=== PATIENT | male | born 1960 | race African-American/Black ===

== ENCOUNTER 2023-12-19 12:44 | Emergency (ER) | payer SELFPAY ==
[2023-12-19 12:45] VITALS: BP 199/101; PULSE 106; RESP 22; TEMP 37.7; O2SAT 97; BMI 29.0
--- NOTE | 2023-12-19 12:53 | RAD_ITS ---
INDICATION: cough EXAMINATION/TECHNIQUE: X-RAY - XR Chest 2 Views COMPARISON: No relevant prior comparison study available FINDINGS: LINES/DEVICES: None. LUNGS: No consolidation, edema or effusion. No pneumothorax. MEDIASTINUM AND CARDIOVASCULAR STRUCTURES: Cardiac silhouette not enlarged. Tortuosity of the thoracic aorta. Central airways and mediastinal contour are unremarkable. BONES AND SOFT TISSUES: Unremarkable. RAD/Chest PA and Lateral IMPRESSION: No radiographic evidence of acute cardiopulmonary disease. Electronically Signed: Timothy Bridges MD at 13:36 EST ,
--- NOTE | 2023-12-19 12:58 | EX.ED.DYSGE1 ---
HPI <GERI Rosales - Last Filed: 12/19/23 14:42> History of Present Illness Chief Complaint: Fever Narrative Narrative: Patient is a 63-year-old male with no significant history who is from [facility] who presents to the emergency department for 2 days of generalized malaise, cough, body aches, headache fever and chills. Patient states last evening, he was shaking, he had to take Tylenol, today, he has a cough, generalized body aches and is here for evaluation. He denies any nausea or vomiting. Denies any sick contacts. Patient states he is coughing with no sputum production. PFSH <GERI Rosales - Last Filed: 12/19/23 14:42> [facility], [facility] Medical History no medical history Allergy/AdvReac Type Severity Reaction Status Date / Time No Known Allergies Allergy Verified 12/19/23 12:45 Social History Smoking Status: Never smoker ROS <GERI Rosales - Last Filed: 12/19/23 14:42> ROS ED ROS Narrative Constitutional: Negative for weight loss, weakness. Positive for fever and chills Eyes: Negative for vision loss, vision change, double vision ENT: Negative for any sore throat, ear pain, congestion Cardiovascular: Negative for any chest pain, tightness, palpitations Respiratory: Negative for any sputum production, hemoptysis, dyspnea, dyspnea on exertion, orthopnea. Positive for cough Gastrointestinal: Negative for any abdominal pain, nausea, vomiting, diarrhea, constipation, blood in stool, blood in vomit : Negative for any urinary frequency, dysuria, retention, blood in urine Muscle skeletal: Negative for any neck pain, back pain. Positive for generalized bodyaches Neurological: Negative for any headache, syncope, dizziness Skin: Negative for any rashes, itching, abrasions, lacerations Psychiatric: Negative for any depression, anxiety, stress, suicidal ideation, homicidal ideation Hematologic: Negative for any excessive bruising, easy bleeding EXAM <GERI Rosales - Last Filed: 12/19/23 14:42> Physical Exam Narrative Exam Narrative: Vital signs reviewed. Low-grade fever, slightly tachycardic HEET: Head normocephalic atraumatic, TMs clear bilaterally. Posterior pharynx is clear, moist mucous membranes. Nares clear bilaterally. Neck: Supple with no lymphadenopathy or tenderness. No signs of meningismus. Cardiac: Regular rate and rhythm no murmurs gallops or rubs, equal peripheral pulses bilaterally. Respiratory: Lungs clear to auscultation bilaterally. No chest tenderness. Abdomen: Soft, nontender, nondistended. No abdominal bruit or pulsatile masses. No hepatosplenomegaly Extremities: No peripheral edema, no signs of gross trauma or deformity. Active full range of motion of all extremities. Neuro: Cranial nerves II through XII intact, no focal neurological deficits. Skin: Clean dry and intact with no rash, purpura, petechiae, vesicles or pustules. Backs/flank: No CVA tenderness, no midline spinal tenderness, no deformity. Psych: Normal mood and affect. No SI, HI or acute psychosis. Const Vital Signs: 12/19/23 12:45 12/19/23 13:41 12/19/23 13:44 Temperature 99.9 F H 101.4 F H Temperature Source Temporal Oral Pulse Rate 106 H 112 H Respiratory Rate 22 H 16 Respiratory Effort Normal Respiratory Pattern Normal Blood Pressure 199/101 H 175/108 H Blood Pressure Mean 133 130 Pulse Ox 97 95 Oxygen Delivery Method Room Air Room Air 12/19/23 14:36 12/19/23 14:45 Temperature 100 F H 99.5 F H Temperature Source Oral Pulse Rate 98 Respiratory Rate 16 Respiratory Effort Respiratory Pattern Blood Pressure 160/98 H Blood Pressure Mean 118 Pulse Ox 95 Oxygen Delivery Method <Dr. Gurinder Mcdonnell MD - Last Filed: 12/19/23 14:50> Physical Exam Const Vital Signs: 12/19/23 12:45 12/19/23 13:41 12/19/23 13:44 Temperature 99.9 F H 101.4 F H Temperature Source Temporal Oral Pulse Rate 106 H 112 H Respiratory Rate 22 H 16 Respiratory Effort Normal Respiratory Pattern Normal Blood Pressure 199/101 H 175/108 H Blood Pressure Mean 133 130 Pulse Ox 97 95 Oxygen Delivery Method Room Air Room Air 12/19/23 14:36 12/19/23 14:45 Temperature 100 F H 99.5 F H Temperature Source Oral Pulse Rate 98 Respiratory Rate 16 Respiratory Effort Respiratory Pattern Blood Pressure 160/98 H Blood Pressure Mean 118 Pulse Ox 95 Oxygen Delivery Method MDM <GERI Rosales - Last Filed: 12/19/23 14:42> MDM Radiography Diagnostic Testing: Clinical Impression(s) from Imaging Studies Chest X-Ray 12/19/23 12:53 IMPRESSION: No radiographic evidence of acute cardiopulmonary disease. Electronically Signed: Timothy Bridges MD at 13:36 EST , Treatment and Re-Evaluation :: Differential diagnosis includes however is not limited to: COVID-19, RSV, influenza, community-acquired pneumonia, other viral illness. Gastroenteritis. Patient appears to be in no obvious distress. Presenting to the emergency department with complaints of viral-like symptoms such as fever, headache, body aches and cough. Patient will receive a rapid COVID/influenza/RSV test, urinalysis, as well as two-view chest x-ray. Patient be given Tylenol for his headache as well as body aches. Patient will be reevaluated Patient's chest x-ray inter by the ER physician shows no radiographic evidence of any acute cardiopulmonary process. Patient's rapid COVID/influenza/RSV was positive for influenza A. This does coincide with all the patient's symptom such as cough, fever and chills. I do believe the patient was not taking ibuprofen and Tylenol correctly, the fever became higher and he felt more uncomfortable. Patient given instructions regarding proper hydration, patient to continue to take ibuprofen, Tylenol. He was given strict return precautions. Patient is happy with the plan of care, all questions were answered, patient stable for discharge. <Dr. Gurinder Mcdonnell MD - Last Filed: 12/19/23 14:50> MDM Radiography Diagnostic Testing: Clinical Impression(s) from Imaging Studies Chest X-Ray 12/19/23 12:53 IMPRESSION: No radiographic evidence of acute cardiopulmonary disease. Electronically Signed: Timothy Bridges MD at 13:36 EST , Treatment and Re-Evaluation Comments:: I have personally performed a face to face assessment of the patient and have reviewed the DIANA Note. I performed a substantive portion of the visit including all aspects of the following. My rehman findings include: History is 1-2 days of cough, sore throat, fatigue, body aches, headaches, fevers. No dyspnea. Exam is well-appearing in no distress. Lungs clear to auscultation throughout. No tachycardia on my exam. No cervical lymphadenopathy. No potato voice or stridor. No rashes. Medical Decison Making: Viral syndrome likely here. Chest x-ray 2 views my interpretation is normal with no signs of pneumonia. We did a viral swab and is positive for influenza A. This explains his symptoms and we do not think he needs any acute treatment or Tamiflu. He does not meet CDC recommendations/criteria for Tamiflu, and he is stable with no hypoxemia, discharged with supportive care instructions. Other additions or changes: [None] Discharge Plan Triage Chief Complaint: Fever ED Midlevel Provider: Romeo Duarte ED Provider: Gurinder Mcdonnell Dx/Rx/DC Orders Clinical Impression: Influenza A, Viral illness Instructions: ED Influenza (Adult) Primary Care Provider: Care Physician,No Primary Referrals: Care Physician,No Primary [Primary Care Provider] - Activity Restrictions/Additional Instructions: Please take Tylenol 1000 mg every 6-8 hours, you may take ibuprofen 600 mg every 8 hours. You must maintain hydration. Ensure that you eat and drink normally. Follow-up with your primary care provider. Disposition Disposition: Home, Self Care
[2023-12-19] MEDS: Acetaminophen 500 MG Tablet 1000 MG PO (13:07)
[2023-12-19 13:44] VITALS: BP 175/108; PULSE 112; RESP 16; TEMP 38.6; O2SAT 95
[2023-12-19 14:16] LABS: Bacteria 0 SEEN /hpf (None Seen); Mucous, Urine 0 SEEN /hpf (<or=2+); Red Blood Cells-Urine 0 SEEN /hpf (0-5); Squamous Epithelial Cells - UA 0 SEEN /hpf (0-5); White Blood Cells 0 SEEN /hpf (0-5)
[2023-12-19 14:30] LABS: Color, Urine Yellow (Yellow); Glucose, Dipstick Normal (Normal); Ketone-Dipstick Negative (Negative); Leukocyte Esterase-Dipstick Negative /ul (Negative); Nitrite-Dipstick Negative (Negative); Occult Blood-Urine Negative /ul (Negative); Protein-Dipstick 15 mg/dl (Negative); Urine Bilirubin Dipstick Negative (Negative); Urine Clarity Clear (Clear); Urine Urobilinogen 1 mg/dl (Normal)
[2023-12-19 14:36] VITALS: TEMP 37.7
[2023-12-19 14:45] VITALS: BP 160/98; PULSE 98; RESP 16; TEMP 38.3; O2SAT 95
[2023-12-19] MEDS: Ibuprofen 600 MG Tablet PO (14:50)
== END 2023-12-19 14:56 | disposition home or self-care (01) ==
PROVIDERS: Nurse Practitioner; Emergency Provider Emergency Medicine; Visit Provider Emergency Medicine
DX: J10.1 Influenza due to other identified influenza virus with other respiratory manifestations (principal); B34.9 Viral infection, unspecified
CPT/HCPCS: 71046; 81001; 87631; 99283

== ENCOUNTER 2024-10-31 19:07 | Inpatient (IN) | payer SELFPAY ==
[2024-10-31 19:09] VITALS: BP 195/131; PULSE 107; RESP 18; TEMP 36.1; O2SAT 99; BMI 24.7
--- NOTE | 2024-10-31 19:32 | EX.ED.DYSGE1 ---
HPI History of Present Illness Chief Complaint: Weakness PFSH PFSH Home Medications ?Medication ?Instructions ?Recorded ?Last Taken ?Type NK 10/31/24 Unknown History Allergy/AdvReac Type Severity Reaction Status Date / Time No Known Allergies Allergy Verified 10/31/24 19:09 Social History Smoking Status: Never smoker EXAM Physical Exam Const Vital Signs: 10/31/24 19:09 10/31/24 21:07 10/31/24 22:05 Temperature 97 F L Temperature Source Temporal Pulse Rate 107 H 78 Respiratory Rate 18 16 Blood Pressure 195/131 H 181/103 H 154/110 H Blood Pressure Mean 152 129 124 Pulse Ox 99 98 10/31/24 22:28 Temperature 97.8 F Temperature Source Pulse Rate 104 H Respiratory Rate 20 H Blood Pressure 184/118 H Blood Pressure Mean 140 Pulse Ox 98 MDM MDM MDM Narrative Medical decision making narrative: HISTORY OF PRESENT ILLNESS: Language 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 He notes for one week he has been having pain in the epigastrium, throat. Notes he takes ibuprofen daily for aches and pains. He notes that he is not eating or drinking no severe burning pain from his throat down to his abdomen. He notes history of abdominal hernia which she had surgery remotely. Denies any other surgical history. States only medicine he takes daily is ibuprofen. Patient denies sudden onset of pain, no tearing sensation, no migratory symptoms, no new numbness, weakness or loss of sensation. Patient denies family history or personal history of Connective tissue disorders (Marfan's Syndrome, Zi Danlos etc). Patient denies sudden onset of pain, no tearing sensation, no migratory symptoms, no new numbness, weakness or loss of sensation. Patient denies family history or personal history of Connective tissue disorders (Marfan's Syndrome, Zi Danlos etc). REVIEW OF SYSTEMS: Pertinent positives: Chest pain, leg weakness Pertinent negatives: Syncope PHYSICAL EXAM: Nursing triage notes reviewed, Vital signs reviewed Constitutional: please see mdm HENT: MMM Eyes: Pupils equal round and reactive to light, Extraocular muscles intact Neck: No stridor, no JVD, full neck ROM Lungs: Clear to auscultation, No wheezing or rales. No increased work of breathing, no conversational dyspnea, no accessory muscle use, no nasal flaring. No respiratory distress noted Heart: Regular rate and rhythm, No murmurs, No rubs and No gallops, 2+ distal pulses (radial, femoral, posterior tibial) in all extremities Abdomen: Soft, there is no tenderness, rigidity, rebound or guarding, no obvious peritoneal signs, no palpable pulsatile abdominal masses, no auscultated abdominal bruit : No CVAT Extremities: No edema Neuro: No new focal neurological deficits, cranial nerves II through XII intact, 5/5 strength in all present extremities. Intact sensation to light touch in all present extremities, 2+ reflexes bilateral patella tendons. Normal gait Skin: No rash or lesions noted MEDICAL DECISION MAKING: Chief Complaint: Chest pain, leg weakness External records reviewed: Diagnosed with influenza A in December 2023 otherwise no recent ED visits Factors affecting care: none reported Social determinants of health: none History obtained from others: the patient's son Consults: Internal medicine (Dr. Carpio) MDM Narrative: Patient is initially hypertensive with a blood pressure 195/131, tachycardic heart rate of 107. Exam I considered the following differential diagnosis: NSAID induced gastritis, esophageal perforation, AAA, ACS, arrhythmia, anemia, aortic dissection ALL IMAGES (IF OBTAINED) HAVE BEEN PERSONALLY REVIEWED AND INTERPRETED BY MYSELF. High-sensitivity troponin is negative, no evidence of myocardial ischemia EKG with no STEMI Lipase is wnl indicating no pancreatic inflammation. Acetone negative I have personally reviewed the patient's chest x-ray. Chest x-ray is unremarkable for pulmonary edema, pneumothorax, pneumonia or focal cardiopulmonary abnormality. CBC with leukocytosis, anemia, no thrombocytopenia VBG with normal pH however bicarb was 16, while not in DKA this is very close. BMP with pseudo hyponatremia, metabolic acidosis, elevated anion gap, acute kidney injury, severe hyperglycemia Repeat blood pressure slightly improved to 181/103, tachycardia improved. Pt received 10 U of insulin to begin treating his hyperglycemia. Discussed the need to start basal insulin drip with the internal medicine doctor Dr. Carpio. He agreed with me the patient not need to be started insulin drip as his labs are concerning for potential DKA however he does not currently meet criteria. Patient was admitted to the PCU in stable condition for blood pressure control, diabetes treatment initiation, further risk factor modification The patient and/or family, caregivers express understanding. The patient and/or family, caregivers agrees with the plan. Shared decision making: I will have a discussion with the patient and or visitors regarding risk/benefits of further testing or admission. They will be made aware of of the risk/benefits inherent in this decision they will be given the opportunity to voice understanding. Total critical care time today provided was at least 0 minutes. This excludes separately billable procedures. Critical care time (if documented) is secondary to the patient having high probability of clinically significant/life threatening deterioration in the patient's condition which required my urgent intervention. Impression: 1. Chest pain 2. Epigastric pain 3. New onset diabetes 4. MAGALIS 5. Metabolic acidosis Dispo: admit to PCU This note was generated with [employer] dictation software. It may contain incorrect words, spelling, and punctuation that were not noted in review of the chart prior to signing. Lab Data Labs: Laboratory Results - last 24 hr 10/31/24 10/31/24 20:28 21:43 WBC 11.1 H RBC 5.47 Hgb 15.4 Hct 45.2 MCV 82.6 MCH 28.2 MCHC 34.1 RDW Std Deviation 33.7 L RDW Coeff of Sarina 11.3 L Plt Count 255 MPV 11.7 Immature Gran % (Auto) 0.400 Neut % (Auto) 82.3 H Lymph % (Auto) 13.7 L Tift % (Auto) 3.4 Eos % (Auto) 0.0 Baso % (Auto) 0.2 Absolute Neuts (auto) 9.1 H Absolute Lymphs (auto) 1.52 Nucleated RBC % 0 Sodium 132 L Potassium 4.8 Chloride 94 L Carbon Dioxide 20.0 L Anion Gap 18 H BUN 37 H Creatinine 2.29 H Estim Creat Clear Calc 31.94 Est GFR (MDRD) Af Amer 37 L Est GFR (MDRD) Non-Af 31 L BUN/Creatinine Ratio 16.2 Glucose 973 H* Calcium 10.2 H Total Bilirubin 0.60 AST 7 L ALT 25 Alkaline Phosphatase 102 Troponin I High Sens 26 Total Protein 9.4 H Albumin 4.2 Globulin 5.2 H Albumin/Globulin Ratio 0.8 L Lipase 58 Acetone Level NEGATIVE ABG Data ABG results: ABG 10/31/24 21:50 Specimen Type AMY Sample Site Not entered VBG pH 7.37 VBG pO2 58 H VBG HCO3 16 L VBG Total CO2 17 L VBG O2 Sat (Calc) 89 H VBG Base Excess -9 L POC Mix VBG pCO2 Pt Tmp 28.1 L O2 Delivery Device Room Air Radiography Diagnostic Testing: Clinical Impression(s) from Imaging Studies Chest X-Ray 10/31/24 20:24 IMPRESSION: No radiographic evidence of acute cardiopulmonary disease. Electronically Signed: Dayne Berman DO at 20:50 EST , Abdomen/Pelvis CT 10/31/24 21:26 IMPRESSION: 1. Moderate amount of colonic stool retention. No bowel obstruction. 2. Cardiomegaly and coronary artery calcifications. No pericardial effusion. Electronically Signed: Dayne Berman DO at 21:51 EST , Discharge Plan Triage Chief Complaint: Weakness ED Provider: Justice Cabrera Dx/Rx/DC Orders Primary Care Provider: Care Physician,No Primary
--- NOTE | 2024-10-31 20:06 | EKG12_ITS ---
Test Reason : DYSRHYTHMIA Blood Pressure : */* mmHG Vent. Rate : 92 BPM Atrial Rate : 92 BPM P-R Int : 148 ms QRS Dur : 96 ms QT Int : 378 ms P-R-T Axes : 53 7 15 degrees QTcB Int : 467 ms Normal sinus rhythm Moderate voltage criteria for LVH, may be normal variant ( R in aVL , Sokolow-Johnston ) T wave abnormality, consider anterolateral ischemia Prolonged QT Abnormal ECG Confirmed by SANTOSH GEORGE, ANIYAH ([id number]), restaurant expeditor DHAVAL MURGUIA ([id number]) on 11/07/2024 2:21:37 PM Referred By: Confirmed By: ANIYAH FROST MD
--- NOTE | 2024-10-31 20:24 | RAD_ITS ---
EXAM: XR CHEST, 1 VIEW CLINICAL INDICATION: chest pain TECHNIQUE: Frontal view of the chest. COMPARISON: 12/19/2023 FINDINGS: LUNGS AND PLEURAL SPACES: No significant abnormality. No consolidation or edema. No pneumothorax. No effusion. HEART: No significant abnormality. Cardiac silhouette not enlarged. MEDIASTINUM: Central airways and mediastinal contour are unremarkable. BONES/JOINTS: No significant abnormality. No acute fracture. SOFT TISSUES: No significant abnormality. RAD/Chest 1 View (Portable) IMPRESSION: No radiographic evidence of acute cardiopulmonary disease. Electronically Signed: Dayne Berman DO at 20:50 EST ,
[2024-10-31] MEDS: 0.9% Normal Saline (1000mL) 1,000 ML 1000 ML IV (20:25)
[2024-10-31] MEDS: Lidocaine 2% Viscous15 ML UDC 15 ML PO (20:25)
[2024-10-31] MEDS: Mag Hydrox/Al Hydrox/Simeth 30 ML UDC PO (20:25)
[2024-10-31] MEDS: Ondansetron 4 MG/2 ML Vial IV (20:25)
[2024-10-31 20:41] LABS: Absolute Lymphocyte Count 1.52 X10^3/uL (0.83-4.51); Absolute Neutrophil Count 9.1 X10^3/uL (2.0-7.7); Basophil# 0.02 X10^3/uL; Basophil% 0.2 % (0-1); Hematocrit 45.2 % (40-54); Hemoglobin 15.4 g/dL (13.0-16.5); Lymphocyte # 1.52 X10^3/ul (0.83-4.51); Lymphocyte % 13.7 % (19-41); Mean Corp Hgb Conc 34.1 g/dL (32-36); Mean Corpuscular Hgb 28.2 pg (27.0-32.0); Mean Corpuscular Volume 82.6 fL (80-94); Mean Platelet Vol. 11.7 fl (6.2-12.0); Monocyte# 0.38 X10^3/uL; Monocyte% 3.4 % (0-10); NRBC Flagged by Analyzer 0 % (0-5); Neutrophil # 9.14 X10^3/uL (2.7-7.7); Neutrophil % 82.3 % (47-70); Platelet Count 255 K/mm3 (150-450); RBC Distribution Width CV 11.3 % (11.6-14.6); RBC Distribution Width SD 33.7 fl (35.1-43.9); Red Blood Count 5.47 M/mm3 (4.6-6.2); White Blood Count 11.1 K/mm3 (4.4-11.0)
[2024-10-31 21:07] VITALS: BP 181/103; PULSE 78; RESP 16; O2SAT 98
[2024-10-31 21:23] LABS: ALB/GLOB Ratio 0.8 RATIO (0.9-2.4); AST(SGOT) 7 U/L (15-37); Alanine Aminotransfer ALT/SGPT 25 U/L (16-61); Albumin, Serum 4.2 g/dL (3.2-5.0); Alkaline Phosphatase 102 U/L (45-117); Anion Gap 18 (5-15); BUN 37 mg/dL (7-18); BUN/Creat Ratio 16.2 RATIO (10-20); Calcium,Total 10.2 mg/dL (8.5-10.1); Chloride 94 mmol/L (98-107); Creatinine, Serum 2.29 mg/dL (0.70-1.30); EST Glomerular Filtration Rate 31 mL/min (>60); Est Glom Filt Rate - Afr Amer 37 mL/min (>60); Estimated Creatinine Clearance 31.94 ml/min; Globulin 5.2 g/dL (2.2-4.2); Glucose 973 mg/dL (74-106); Lipase 58 U/L (13-75); Potassium 4.8 mmol/L (3.5-5.1); Protein, Total 9.4 g/dL (6.4-8.2); Sodium Level 132 mmol/L (136-145); Troponin-I HS 26 pg/mL (3.0-78.0)
--- NOTE | 2024-10-31 21:26 | CT_ITS ---
EXAM: CT ABDOMEN AND PELVIS WITHOUT INTRAVENOUS CONTRAST CLINICAL INDICATION: abdominal pain TECHNIQUE: Helically acquired images were obtained of the abdomen and pelvis without intravenous contrast. This CT exam was performed using one or more of the following dose reduction techniques: automated exposure control, adjustment of the mA and/or kV according to patient size, and/or use of iterative reconstruction technique. COMPARISON: No relevant prior studies available. FINDINGS: LOWER THORAX: Likely granuloma in the right lower lobe. Cardiomegaly and coronary artery calcifications. No pericardial effusion. ABDOMEN: LIVER: No significant abnormality. Homogeneous. GALLBLADDER AND BILE DUCTS: No significant abnormality. No calcified gallstones. No gallbladder distention or wall edema. No intra- or extrahepatic biliary ductal dilation. PANCREAS: No significant abnormality. No focal cystic mass. SPLEEN: No significant abnormality. Normal size without focal cystic or solid mass. ADRENALS: No significant abnormality. No nodules. KIDNEYS AND URETERS: No significant abnormality. Normal renal size and position. No hydronephrosis. STOMACH AND BOWEL: Moderate amount of colonic stool retention. No stomach or bowel distention. No focal inflammatory change. PELVIS: APPENDIX: There is a normal appendix in the right lower quadrant. BLADDER: No significant abnormality. REPRODUCTIVE: Normal as visualized. No mass. ABDOMEN and PELVIS: INTRAPERITONEAL SPACE: No significant abnormality. No ascites or other fluid collection. No free air. BONES/JOINTS: Osseous degenerative changes. No suspicious lytic or blastic abnormality. SOFT TISSUES: No significant abnormality. No discrete abdominal or pelvic wall hernia. VASCULATURE: No significant abnormality. Abdominal aorta is non-dilated. LYMPH NODES: No significant abnormality. No enlarged lymph nodes. CT/Abdomen/Pelvis without Cont IMPRESSION: 1. Moderate amount of colonic stool retention. No bowel obstruction. 2. Cardiomegaly and coronary artery calcifications. No pericardial effusion. Electronically Signed: Dayne Berman DO at 21:51 EST ,
[2024-10-31 21:53] LABS: Blood Gas Specimen Type VEN; O2 Delivery Device Room Air; SITE Not entered; VBG BASE EXCESS -9 mmol/L (-1.0-3.5); VBG Bicarbonate 16 mmol/L (22-26); VBG PO2 58 mmHg (25-40); VBG SO2 89 % (50-70); VBG TCO2 17 mmol/L (23-33); VBG pCO2 28.1 mmHg (41-51); VBG pH 7.37 (7.32-7.42)
[2024-10-31 22:05] VITALS: BP 154/110
[2024-10-31] MEDS: Famotidine 200 MG/20 ML MDV 20 MG in 0.9% Normal Saline (Pres. free 8 ML 300 MG IV (22:14)
[2024-10-31] MEDS: Insulin Lispro 100 UNIT/ML VIAL (ADMELOG) 10 UNIT IV (22:14)
--- NOTE | 2024-10-31 22:27 | HP.PCM_ITS ---
HPI - General General Date of Admission: 10/31/24 Date of Service: 10/31/24 Chief Complaint: Generalized weakness HPI Narrative MARIYA MATHEWS, is a 63 M who presents to the emergency room with chief complaint of generalized weakness. Language line interpreter translator was used to communicate with the patient who is from [facility] and speaks Creole. Patient complains of sore and dry throat along with leg weakness and chest discomfort that started approximately 1 week ago. Patient denies taking any routine medication other than over the counter ibuprofen for daily aches and pains. He states he has had difficulty with drinking and burning pain in his throat down to his abdomen that has been going on for this past week. He does have a remote history of surgery to his abdomen for a hernia. Patient denies any new numbness or loss of sensation. Patient denies history of any connective tissue disorders including Marfan's or Erler's Danlos syndrome. He does state upon standing he does feel dizzy and weak in the legs. Initial blood sugar was found to be in the 900s and blood pressure has been running in the 180s to 190s over 100. Acetone level is negative in the blood and anion gap is 18. Troponin is negative. Patient was initially given insulin and IV fluid in the emergency room and he will be admitted to the progressive care unit for continued monitoring of his hyperglycemia and hypertension. Repeat labs will be ordered in the a.m. FOR[facility]LY [facility], [facility] Home Medications ?Medication ?Instructions ?Recorded ?Last Taken ?Type NK 10/31/24 Unknown History Allergy/AdvReac Type Severity Reaction Status Date / Time No Known Allergies Allergy Verified 10/31/24 19:09 Social History Smoking Status: Never smoker ROS Constitutional Constitutional: Reports weakness; Denies chills or fever(s) Eyes Eyes: Denies blurry vision ENT HEENT: Reports dysphagia and sore throat; Denies abnormal hearing Cardiovascular Cardiovascular: Reports chest pain Respiratory/Chest Respiratory/Chest: Denies cough Gastrointestinal Gastrointestinal: Denies abdominal pain Genitourinary Genitourinary: Denies dysuria Musculoskeletal Musculoskeletal: Denies back pain Integumentary Integumentary: Denies dry skin Neurologic Neurologic: Denies confusion Psychiatric Psychiatric: Denies anxiety Vital Signs Vital Signs Vital Signs: 10/31/24 19:09 10/31/24 21:07 10/31/24 22:05 Temperature 97 F L Temperature Source Temporal Pulse Rate 107 H 78 Respiratory Rate 18 16 Blood Pressure 195/131 H 181/103 H 154/110 H Blood Pressure Mean 152 129 124 Pulse Ox 99 98 Weight Weight: 162 lb 14.4 oz Body Mass Index (BMI) 24.7 Physical Exam Const alert and oriented x3 General Appearance: cooperative HEENT normocephalic and head/scalp atraumatic Eyes PERRL Neck no lymphadenopathy Neck Narrative: Oral mucosa dry Lymph Lymphatic: no lymphadenopathy noted Resp normal air movement and clear to auscultation bilaterally Cardio regular rate, regular rhythm, S1 normal heart sound and S2 normal heart sound GI normal to inspection, nondistended, normoactive bowel sounds Extremity normal capillary refill Skin General Skin Exam: no breakdown Neuro no focal motor deficits and no sensory deficits noted Psych thought process normal, cooperative and affect normal Results Lab / Micro Data 10/31/24 20:28 10/31/24 20:28 Labs: Laboratory Results - last 24 hr 10/31/24 20:28: WBC 11.1 H, RBC 5.47, Hgb 15.4, Hct 45.2, MCV 82.6, MCH 28.2, MCHC 34.1, RDW Std Deviation 33.7 L, RDW Coeff of Sarina 11.3 L, Plt Count 255, MPV 11.7, Immature Gran % (Auto) 0.400, Neut % (Auto) 82.3 H, Lymph % (Auto) 13.7 L, Curry % (Auto) 3.4, Eos % (Auto) 0.0, Baso % (Auto) 0.2, Absolute Neuts (auto) 9.1 H, Absolute Lymphs (auto) 1.52, Nucleated RBC % 0, Sodium 132 L, Potassium 4.8, Chloride 94 L, Carbon Dioxide 20.0 L, Anion Gap 18 H, BUN 37 H, Creatinine 2.29 H, Estim Creat Clear Calc 31.94, Est GFR (MDRD) Af Amer 37 L, Est GFR (MDRD) Non-Af 31 L, BUN/Creatinine Ratio 16.2, Glucose 973 H*, Calcium 10.2 H, Total Bilirubin 0.60, AST 7 L, ALT 25, Alkaline Phosphatase 102, Troponin I High Sens 26, Total Protein 9.4 H, Albumin 4.2, Globulin 5.2 H, Albumin/Globulin Ratio 0.8 L, Lipase 58 10/31/24 21:43: Acetone Level NEGATIVE ABG Data ABG results: ABG 10/31/24 21:50 Specimen Type AMY Sample Site Not entered VBG pH 7.37 VBG pO2 58 H VBG HCO3 16 L VBG Total CO2 17 L VBG O2 Sat (Calc) 89 H VBG Base Excess -9 L POC Mix VBG pCO2 Pt Tmp 28.1 L O2 Delivery Device Room Air Imaging Radiology Impression Chest X-Ray 10/31/24 20:24 IMPRESSION: No radiographic evidence of acute cardiopulmonary disease. Electronically Signed: Dayne VCaitlin Berman DO at 20:50 EST , Abdomen/Pelvis CT 10/31/24 21:26 IMPRESSION: 1. Moderate amount of colonic stool retention. No bowel obstruction. 2. Cardiomegaly and coronary artery calcifications. No pericardial effusion. Electronically Signed: Dayne Berman DO at 21:51 EST , Assessment & Plan Assessment/Plan (1) New onset type 2 diabetes mellitus: (2) Hypertension: (3) MAGALIS (acute kidney injury): (4) Dry throat: PLAN: Plan 1 new onset diabetes with hyperglycemia?admit patient to progressive care unit, IV normal saline at a rate of 125 cc/h, glucose checks every 6 hours with low- dose sliding scale insulin coverage. Repeat BMP in a.m. 2. Acute kidney injury?as above IV hydration therapy and recheck BMP in the a.m. 3. Hypertension?hydralazine 10 mg IV every 6 as needed blood pressure greater than 160/100 4. DVT prophylaxis?low molecular weight heparin Patient will require assistance when transitioning to outpatient for oral diabetes and hypertension medication Charges/Coding Visit Charges Inpatient E&M: 13946 Init Hosp L2
[2024-10-31 22:28] VITALS: BP 184/118; PULSE 104; RESP 20; TEMP 36.6; O2SAT 98
--- NOTE | 2024-10-31 23:02 | ED.RN ---
GREATER THAN 500
[2024-10-31 23:03] VITALS: BP 168/110; PULSE 104; RESP 19; O2SAT 98
[2024-10-31 23:21] LABS: Bedside Glucose > 500 mg/dL (74-106)
[2024-10-31] MEDS: 0.9% Normal Saline (1000mL) 1,000 ML 125 ML IV (23:40)
[2024-10-31 23:56] LABS: Glucose 708 mg/dL (74-106)
[2024-11-01] VITALS (13 sets, daily range): BP systolic 144–182; BP diastolic 90–114; PULSE 72–91; RESP 13–19; TEMP 36.2–37; O2SAT 94–99; BMI 24.5
[2024-11-01 00:44] LABS: Bedside Glucose > 500 mg/dL (74-106)
[2024-11-01] MEDS: hydrALAZINE 20 MG/ML Vial 10 MG IV (03:42)
[2024-11-01] MEDS: 0.9% Normal Saline (1000mL) 1,000 ML 125 ML IV (07:03)
[2024-11-01 07:07] LABS: Bedside Glucose 471 mg/dL (74-106)
--- NOTE | 2024-11-01 07:29 | PCM.PN.HOSP ---
Reason for Visit Reason for Visit: Diagnoses Type 2 diabetes mellitus without complications (10/31/24) Essential (primary) hypertension (10/31/24) Other diseases of pharynx (10/31/24) Acute kidney failure, unspecified (10/31/24) Objective Data Objective Data Vital Signs: Vital Signs Temp Pulse Resp BP Pulse Ox O2 Del Method 98.0 F 80 18 170/103 H 98 Room Air 11/01/24 06:40 11/01/24 06:40 11/01/24 06:40 11/01/24 06:40 11/01/24 06:40 11/01/24 06:40 Oxygen Delivery Method Room Air Weight: 161 lb 9.581 oz Body Mass Index (BMI) 24.5 Intake & Output: Intake and Output for Last 24 Hours 10/30/24 10/31/24 11/01/24 23:59 23:59 23:59 Intake Total 1010 / 1010 1422.92 / 1422.92 Balance 1010 / 1010 1422.92 / 1422.92 Lab / Micro Data 10/31/24 20:28 11/01/24 05:49 Labs: Laboratory Results - last 24 hr 10/31/24 20:28: WBC 11.1 H, RBC 5.47, Hgb 15.4, Hct 45.2, MCV 82.6, MCH 28.2, MCHC 34.1, RDW Std Deviation 33.7 L, RDW Coeff of Sarina 11.3 L, Plt Count 255, MPV 11.7, Immature Gran % (Auto) 0.400, Neut % (Auto) 82.3 H, Lymph % (Auto) 13.7 L, [place] % (Auto) 3.4, Eos % (Auto) 0.0, Baso % (Auto) 0.2, Absolute Neuts (auto) 9.1 H, Absolute Lymphs (auto) 1.52, Nucleated RBC % 0, Sodium 132 L, Potassium 4.8, Chloride 94 L, Carbon Dioxide 20.0 L, Anion Gap 18 H, BUN 37 H, Creatinine 2.29 H, Estim Creat Clear Calc 31.94, Est GFR (MDRD) Af Amer 37 L, Est GFR (MDRD) Non-Af 31 L, BUN/Creatinine Ratio 16.2, Glucose 973 H*, Calcium 10.2 H, Total Bilirubin 0.60, AST 7 L, ALT 25, Alkaline Phosphatase 102, Troponin I High Sens 26, Total Protein 9.4 H, Albumin 4.2, Globulin 5.2 H, Albumin/Globulin Ratio 0.8 L, Lipase 58 10/31/24 21:43: Acetone Level NEGATIVE 10/31/24 23:01: POC Glucose > 500 H* 10/31/24 23:04: Glucose 708 H* 11/01/24 00:25: POC Glucose > 500 H* 11/01/24 06:46: POC Glucose 471 H* ABG Data ABG results: ABG 10/31/24 21:50 Specimen Type AMY Sample Site Not entered VBG pH 7.37 VBG pO2 58 H VBG HCO3 16 L VBG Total CO2 17 L VBG O2 Sat (Calc) 89 H VBG Base Excess -9 L POC Mix VBG pCO2 Pt Tmp 28.1 L O2 Delivery Device Room Air Radiography Diagnostic Testing: Radiology Impression Chest X-Ray 10/31/24 20:24 IMPRESSION: No radiographic evidence of acute cardiopulmonary disease. Electronically Signed: Dayne VCaitlin Berman DO at 20:50 EST , Abdomen/Pelvis CT 10/31/24 21:26 IMPRESSION: 1. Moderate amount of colonic stool retention. No bowel obstruction. 2. Cardiomegaly and coronary artery calcifications. No pericardial effusion. Electronically Signed: Daynemack Berman DO at 21:51 EST , Physical Exam Narrative Seen and examined Patient complain of sore throat severe and has difficulty in swallowing at the level of throat. Patient himself denies taking [id number] pain medications including ibuprofen or liver antacid. Patient was wrongly admitted in PCU with diagnosis consistent with DKA, anion gap 18, bicarb 20, acetone level small with dehydration and MAGALIS. Denies abdominal pain. Physical exam General: Alert, Oriented x3, Cooperative, BMI 24.6 kg/m? HEENT: Atraumatic, PERRLA, EOMI, Normocephalic Oral: No Gingival or Mucosal Lesions/ Ulcerations Neck: Supple, No JVD, Negative Carotid Bruits Chest wall/Lungs: Air entry diminished in bilateral lung bases. No crepitation/rhonchi Cardiovascular: Regular rate, Regular Rhythm, Normal S1, Normal S2, No M/G/R Abdomen: Dysphagia bowel Sounds Present, Soft, Non Tender, Non-Distended : No dysuria. No renal angle tenderness. No suprapubic tenderness. Extremities: No edema, Capillary Refill Less than 3 Seconds Skin: No rashes, No breakdown Musculoskeletal: No Tenderness to Palpation of Joints or Extremities Neurological: Cranial nerves II-XII grossly intact, DTR 2+/4. No acute focal neurological deficit. Psych/Mental Status: Normal Affect, Appropriate. Assessment & Plan Assessment/Plan (1) New onset type 2 diabetes mellitus: (2) Hypertension: (3) MAGALIS (acute kidney injury): (4) Dry throat: PLAN: Plan 63-year-old gentleman was admitted with complaint of chest pain and leg weakness for 1 week. He has been having epigastric pain. Patient has not been eating or drinking too. Denies any sudden onset of pain, no tearing sensation migratory symptoms no new numbness weakness or tingling. Denies family history of Marfan syndrome. Glucose was 173 on admission, anion gap 18 BUN 37, creatinine 2.29 acetone small. Bicarb 20. 1. DKA with new diagnosis of diabetes mellitus probably type II: Patient was wrongly admitted in PCU but is getting transferred to ICU. For now 1, while anion gap is 10. Glucose is high. Serum osmolality high. ABG was not done but will be VBG shows 7.37, Total CO2 17, mixed total pCO2 28 DKA protocol ordered. Patient still dehydrated vigorous IV fluid 2. Acute kidney injury?creatinine 2.29 getting better 1.76. IV fluid normal saline 1 L bolus ordered and then as per DKA protocol 3. Hyponatremia, hypertonic hypovolemic hypoglycemia due to DKA: Repeat sodium is normal 130 4. Hypertension: BP was high 170/103, 182/104. Labetalol ordered. 5. Dysphagia most likely oropharyngeal dysphagia: Speech therapist ordered. Complain of sore throat, strep throat swab was taken. Linata ordered for symptomatic relief. 6. DVT prophylaxis?low molecular weight heparin Patient will require assistance when transitioning to outpatient for oral diabetes and hypertension medication Laboratory Results 10/31/24 20:28: WBC 11.1 H, RBC 5.47, Hgb 15.4, Hct 45.2, MCV 82.6, MCH 28.2, MCHC 34.1, RDW Std Deviation 33.7 L, RDW Coeff of Sarina 11.3 L, Plt Count 255, MPV 11.7, Immature Gran % (Auto) 0.400, Neut % (Auto) 82.3 H, Lymph % (Auto) 13.7 L, [place] % (Auto) 3.4, Eos % (Auto) 0.0, Baso % (Auto) 0.2, Absolute Neuts (auto) 9.1 H, Absolute Lymphs (auto) 1.52, Nucleated RBC % 0, Sodium 132 L, Potassium 4.8, Chloride 94 L, Carbon Dioxide 20.0 L, Anion Gap 18 H, BUN 37 H, Creatinine 2.29 H, Estim Creat Clear Calc 31.94, Est GFR (MDRD) Af Amer 37 L, Est GFR (MDRD) Non-Af 31 L, BUN/Creatinine Ratio 16.2, Glucose 973 H*, Calcium 10.2 H, Total Bilirubin 0.60, AST 7 L, ALT 25, Alkaline Phosphatase 102, Troponin I High Sens 26, Total Protein 9.4 H, Albumin 4.2, Globulin 5.2 H, Albumin/Globulin Ratio 0.8 L, Lipase 58 10/31/24 21:43: Acetone Level NEGATIVE 10/31/24 21:50: Specimen Type AMY, Sample Site Not entered, VBG pH 7.37, VBG pO2 58 H, VBG HCO3 16 L, VBG Total CO2 17 L, VBG O2 Sat (Calc) 89 H, VBG Base Excess -9 L, POC Mix VBG pCO2 Pt Tmp 28.1 L, O2 Delivery Device Room Air 10/31/24 23:01: POC Glucose > 500 H* 10/31/24 23:04: Glucose 708 H* 11/01/24 00:25: POC Glucose > 500 H* 11/01/24 05:49: Sodium 138, Potassium 5.1, Chloride 106, Carbon Dioxide 22.0, Anion Gap 10, BUN 33 H, Creatinine 1.76 H, Estim Creat Clear Calc 41.56, Est GFR (MDRD) Af Amer 50 L, Est GFR (MDRD) Non-Af 42 L, BUN/Creatinine Ratio 18.8, Glucose 553 H*, Calcium 9.5, Magnesium 3.2 H 11/01/24 06:46: POC Glucose 471 H* Charges/Coding Addendum Addendum: Total time of the visit including total time spent in counseling or coordination of care, (more than 50% of the total time, spent in obtaining medical information from nurses and other ancillary care providers ,explaining to the patient about labs, imaging, diagnosis and management of active complex medical conditions), management of multiple active issues including DKA, MAGALIS, dysphagia, review of labs and imaging is 40 minutes. Patient is being transferred to ICU Visit Charges Inpatient E&M: 82377 Subs Hosp L3
[2024-11-01 07:36] LABS: Anion Gap 10 (5-15); BUN 33 mg/dL (7-18); BUN/Creat Ratio 18.8 RATIO (10-20); Calcium,Total 9.5 mg/dL (8.5-10.1); Chloride 106 mmol/L (98-107); Creatinine, Serum 1.76 mg/dL (0.70-1.30); EST Glomerular Filtration Rate 42 mL/min (>60); Est Glom Filt Rate - Afr Amer 50 mL/min (>60); Estimated Creatinine Clearance 41.56 ml/min; Glucose 553 mg/dL (74-106); Magnesium 3.2 mg/dL (1.6-2.6); Potassium 5.1 mmol/L (3.5-5.1); Sodium Level 138 mmol/L (136-145)
[2024-11-01] MEDS: Insulin Lispro 100 UNIT/ML INSULN.PEN 15 UNIT SC (08:01)
[2024-11-01] MEDS: 0.9% Normal Saline (1000mL) 1,000 ML 999 ML IV (08:01)
[2024-11-01 08:22] LABS: Osmolality, Serum 352 mOsm/KG (280-301)
[2024-11-01] MEDS: 0.9% Normal Saline (1000mL) 1,000 ML 250 ML IV ×2 (09:05→13:13)
[2024-11-01] MEDS: Enoxaparin 40 MG/0.4 ML Syringe SC (09:07)
[2024-11-01 09:27] LABS: Bedside Glucose 366 mg/dL (74-106)
[2024-11-01 10:20] LABS: Bedside Glucose 316 mg/dL (74-106)
[2024-11-01 11:25] LABS: Bedside Glucose 301 mg/dL (74-106)
[2024-11-01 11:34] LABS: Anion Gap 7 (5-15); BUN 30 mg/dL (7-18); BUN/Creat Ratio 17.8 RATIO (10-20); Calcium,Total 9.1 mg/dL (8.5-10.1); Chloride 114 mmol/L (98-107); Creatinine, Serum 1.69 mg/dL (0.70-1.30); EST Glomerular Filtration Rate 44 mL/min (>60); Est Glom Filt Rate - Afr Amer 53 mL/min (>60); Estimated Creatinine Clearance 43.28 ml/min; Glucose 339 mg/dL (74-106); Sodium Level 145 mmol/L (136-145)
[2024-11-01] MEDS: BENZOCAINE/MENTHOL 1 LOZENGE MUCOUS MEM (12:04)
[2024-11-01] MEDS: Insulin Glargine-YFGN 100 UNIT/ML Pen 20 UNIT SC (13:12)
[2024-11-01] MEDS: 0.9% Saline Lock 10 ML Syringe IV (13:12)
[2024-11-01 13:31] LABS: Bedside Glucose 239 mg/dL (74-106)
--- NOTE | 2024-11-01 14:45 | CHAPLAIN ---
Type of Pastoral Visit _x__ Initial Visit ___ Follow-up Visit ___ On-call Visit ___ General Patient Visit ___ Spiritual Assessment ___ Family Conference ___ Bereavement ___ Rapid Response ___ Code Blue ___ Other (describe below) Pastoral Care Referral From _x__ Patient ___ Family ___ Nurse ___ Physician ___ Case Management Social Worker ___ Horse Groomer _x__ Other (describe below) Sacrament/Intervention _x__ Active listening ___ Anointing ___ Religious ___ Bereavement ___ Communion ___ Kelley exploration ___ ___ Life review _x__ Prayer ___ Reconciliation ___ Sacrament of Sick _x__ Supportive presence ___ Wedding ___ Other (describe below) Pastoral Comments This patient was a referral but it is uncertain as to who made the request since he is not an Lao speaker. The patient speaks Gabonese Creole and the assisted transport tech was used to communicate with him today; This tool was effective in helping the pt express what was happening, how he was feeling, what needs he had, and the response to question of needing visit, support, and prayer; pt focused on his medical need of thirst and pain in his mouth; pt stated that his son was at work but that he is his support and help; pt readily agreed to having prayer spoken and during the prayer he made comments of Amen, Yes, etc.; pt denied having other worries or needs
--- NOTE | 2024-11-01 16:04 | CASEMGMT ---
RN CM Assessment Face to Face with patient for initial transition planning/care coordination assessment. Pt speaks Italian Creole only. Video metallurgical engineering teacher used for RN CM assessment. RN MAXIMO introduced self and role at [facility], pt voices understanding. Pt is A&Ox4 and is resting comfortably in the chair and is calm. Care providers, pharmacy, and demographics verified. Admitting dx: New onset Diabetes, HTN. Goodwill Ambassador has seen the pt, see note. LACE Strata: Not populating at this time PCP: No PCP. [facility] information provided to the pt with phone number and address Specialists: Denies current Preferred Pharmacy: [facility] Insurance: SP. Yoder (Pt Associate Automation Engineer) notified. Prescription Benefit: None at this time. CM to follow. LNOK: Sukh Ybarra (son) Living Arrangements: Pt lives with his son in a 2 story home with 3 steps to enter ADLs/IADLs: Ind Transportation: Pt reports that he is able to drive but his license is . Reports that his son drives him currently and denies concerns DME: Denies all current DME uses. This RN CM educated the pt that [facility] staff can provide the pt with an Rx for a BGM with supplies for the pharmacy to fill. Pt states agreeable. CM to follow. HHC/SNF: Denies Hx or needs Pt?s goal: Return home Plan: Home with pt son with new DM supplies. Current 6-Click score is 24. Pt denies the need for HHC, OP Tx, or CCN and states that he feels safe returning home with his son at the time of DC and denies further questions, concerns, or needs at this time. CM to follow. Cathi Dominguez RN, CM
[2024-11-01] MEDS: Insulin Lispro 100 UNIT/ML INSULN.PEN SC ×2 (16:32→21:18)
[2024-11-01] MEDS: Insulin Lispro 100 UNIT/ML INSULN.PEN 10 UNIT SC (16:32)
[2024-11-01] MEDS: amLODIPine 10 MG Tablet PO (16:35)
--- NOTE | 2024-11-01 16:36 | CASEMGMT ---
Social Work- SW to follow, as pt is self pay. Pt referred to [employer], [facility]. [facility] reports that pt states that he works between 3-5 days a week, 5-8 hours a day at $15/hr with a gross income that varies from $967.50-$2580.?It would average out to $1773, which is about $40 over-income.?Pt declines to sign for medicaid or financial assistance without son present, as son speaks estonian. Pt son works until 6pm. SW to follow up with son. LILLIAN Mack
[2024-11-01 16:51] LABS: Bedside Glucose 439 mg/dL (74-106)
[2024-11-01] MEDS: Lactated Ringers 1,000 ML 100 ML IV (17:18)
[2024-11-01 21:32] LABS: Bedside Glucose 269 mg/dL (74-106)
[2024-11-02] VITALS (9 sets, daily range): BP systolic 134–164; BP diastolic 85–100; PULSE 80–103; RESP 14–18; TEMP 36.4–37; O2SAT 97–98
[2024-11-02] MEDS: hydrALAZINE 20 MG/ML Vial 10 MG IV (01:42)
[2024-11-02] MEDS: BENZOCAINE/MENTHOL 1 LOZENGE MUCOUS MEM (01:42)
[2024-11-02 05:53] LABS: Absolute Lymphocyte Count 2.12 X10^3/uL (0.83-4.51); Absolute Neutrophil Count 8.9 X10^3/uL (2.0-7.7); Basophil# 0.04 X10^3/uL; Basophil% 0.3 % (0-1); Eosinophil# 0.07 X10^3/uL; Eosinophils% 0.6 % (0-5); Hematocrit 39.4 % (40-54); Hemoglobin 13.2 g/dL (13.0-16.5); Lymphocyte # 2.12 X10^3/ul (0.83-4.51); Lymphocyte % 18.2 % (19-41); Mean Corp Hgb Conc 33.5 g/dL (32-36); Mean Corpuscular Hgb 28.1 pg (27.0-32.0); Mean Platelet Vol. 11.2 fl (6.2-12.0); Monocyte# 0.51 X10^3/uL; Monocyte% 4.4 % (0-10); NRBC Flagged by Analyzer 0 % (0-5); Neutrophil # 8.88 X10^3/uL (2.7-7.7); Neutrophil % 76.2 % (47-70); Platelet Count 198 K/mm3 (150-450); RBC Distribution Width CV 11.3 % (11.6-14.6); RBC Distribution Width SD 34.6 fl (35.1-43.9); Red Blood Count 4.69 M/mm3 (4.6-6.2); White Blood Count 11.7 K/mm3 (4.4-11.0)
[2024-11-02] MEDS: Acetaminophen 325 MG Tablet 650 MG PO ×2 (06:21→13:49)
[2024-11-02] MEDS: Insulin Lispro 100 UNIT/ML INSULN.PEN 10 UNIT SC (06:26)
[2024-11-02] MEDS: Insulin Lispro 100 UNIT/ML INSULN.PEN SC ×4 (06:26→21:01)
[2024-11-02] MEDS: Phenol/Sodium Phenolate 180ML 5 SPRAY MUCOUS MEM ×2 (06:35→09:27)
[2024-11-02 06:56] LABS: Anion Gap 7 (5-15); BUN 20 mg/dL (7-18); BUN/Creat Ratio 16.8 RATIO (10-20); Calcium,Total 8.8 mg/dL (8.5-10.1); Chloride 109 mmol/L (98-107); Creatinine, Serum 1.19 mg/dL (0.70-1.30); EST Glomerular Filtration Rate 65 mL/min (>60); Est Glom Filt Rate - Afr Amer 79 mL/min (>60); Estimated Creatinine Clearance 61.47 ml/min; Glucose 244 mg/dL (74-106); Sodium Level 142 mmol/L (136-145)
[2024-11-02 07:24] LABS: Bedside Glucose 241 mg/dL (74-106)
[2024-11-02] MEDS: amLODIPine 10 MG Tablet PO (08:11)
[2024-11-02] MEDS: Enoxaparin 40 MG/0.4 ML Syringe SC (08:12)
[2024-11-02 08:16] LABS: Thyroid Stim Hormone (TSH) 0.501 uIU/mL (0.358-3.740)
[2024-11-02 08:21] LABS: Hemoglobin A1c 10.3 % (3.8-5.6)
--- NOTE | 2024-11-02 08:55 | PN.HOSP_ITS ---
Reason for Visit Reason for Visit: Diagnoses Type 2 diabetes mellitus without complications (10/31/24) Essential (primary) hypertension (10/31/24) Other diseases of pharynx (10/31/24) Acute kidney failure, unspecified (10/31/24) Objective Data Objective Data Vital Signs: Vital Signs Temp Pulse Resp BP Pulse Ox O2 Del Method 97.9 F 91 16 157/100 H 98 Room Air 11/02/24 08:10 11/02/24 08:10 11/02/24 08:10 11/02/24 08:10 11/02/24 08:10 11/02/24 08:10 Oxygen Delivery Method Room Air Weight: 161 lb 9.581 oz Body Mass Index (BMI) 24.5 Intake & Output: Intake and Output for Last 24 Hours 10/31/24 11/01/24 11/02/24 23:59 23:59 23:59 Intake Total 1010 / 1010 4504.17 / 4504.17 1000 / 1000 Balance 1010 / 1010 4504.17 / 4504.17 1000 / 1000 Lab / Micro Data 11/02/24 05:29 11/02/24 05:29 Labs: Laboratory Results - last 24 hr 11/01/24 09:07: POC Glucose 366 H 11/01/24 10:01: POC Glucose 316 H 11/01/24 11:00: Sodium 145, Potassium 4.0, Chloride 114 H, Carbon Dioxide 24.0, Anion Gap 7, BUN 30 H, Creatinine 1.69 H, Estim Creat Clear Calc 43.28, Est GFR (MDRD) Af Amer 53 L, Est GFR (MDRD) Non-Af 44 L, BUN/Creatinine Ratio 17.8, G lucose 339 H, Calcium 9.1 11/01/24 11:06: POC Glucose 301 H 11/01/24 13:11: POC Glucose 239 H 11/01/24 16:31: POC Glucose 439 H 11/01/24 21:09: POC Glucose 269 H 11/02/24 05:29: WBC 11.7 H, RBC 4.69, Hgb 13.2, Hct 39.4 L, MCV 84.0, MCH 28.1, MCHC 33.5, RDW Std Deviation 34.6 L, RDW Coeff of Sarina 11.3 L, Plt Count 198, MPV 11.2, Immature Gran % (Auto) 0.300, Neut % (Auto) 76.2 H, Lymph % (Auto) 18.2 L, [place] % (Auto) 4.4, Eos % (Auto) 0.6, Baso % (Auto) 0.3, Absolute Neuts (auto) 8.9 H, Absolute Lymphs (auto) 2.12, Nucleated RBC % 0, Sodium 142, Potassium 4.0, Chloride 109 H, Carbon Dioxide 26.0, Anion Gap 7, BUN 20 H, Creatinine 1.19, Estim Creat Clear Calc 61.47, Est GFR (MDRD) Af Amer 79, Est GFR (MDRD) Non-Af 65, BUN/Creatinine Ratio 16.8, Glucose 244 H, Hemoglobin A1c 10.3 H, Calcium 8.8, TSH 0.501 11/02/24 06:25: POC Glucose 241 H Micro: Microbiology 11/01/24 08:34 Mucosa - Throat Streptococcus pyogenes (PCR) - Final Physical Exam Narrative Seen and examined Sore throat is better. Patient cannot swallow. Cleared by the speech therapist oral regular diet. Blood pressure is elevated. DKA resolved yesterday Denies abdominal pain. Physical exam General: Alert, Oriented x3, Cooperative, BMI 24.6 kg/m? HEENT: Atraumatic, PERRLA, EOMI, Normocephalic Oral: No Gingival or Mucosal Lesions/ Ulcerations Neck: Supple, No JVD, Negative Carotid Bruits. Thyroid lobes lower border palpable Chest wall/Lungs: Air entry diminished in bilateral lung bases. No crepitation/rhonchi Cardiovascular: Regular rate, Regular Rhythm, Normal S1, Normal S2, No M/G/R Abdomen: Dysphagia bowel Sounds Present, Soft, Non Tender, Non-Distended : No dysuria. No renal angle tenderness. No suprapubic tenderness. Extremities: No edema, Capillary Refill Less than 3 Seconds Skin: No rashes, No breakdown Musculoskeletal: No Tenderness to Palpation of Joints or Extremities Neurological: Cranial nerves II-XII grossly intact, DTR 2+/4. No acute focal neurological deficit. Psych/Mental Status: Normal Affect, Appropriate. Assessment & Plan Assessment/Plan (1) New onset type 2 diabetes mellitus: (2) Hypertension: (3) MAGALIS (acute kidney injury): (4) Dry throat: PLAN: Plan 63-year-old gentleman was admitted with complaint of chest pain and leg weakness for 1 week. He has been having epigastric pain. Patient has not been eating or drinking too. Denies any sudden onset of pain, no tearing sensation migratory symptoms no new numbness weakness or tingling. Denies family history of Marfan syndrome. Glucose was 173 on admission, anion gap 18 BUN 37, creatinine 2.29 acetone small. Bicarb 20. 1. DKA with new diagnosis of diabetes mellitus probably type II: Patient was wrongly admitted in PCU but is getting transferred to ICU. For now 1, while anion gap is 10. Glucose is high. Serum osmolality high. ABG was not done but will be VBG shows 7.37, Total CO2 17, mixed total pCO2 28 DKA protocol ordered. Patient still dehydrated vigorous IV fluid 11/02: DKA resolved yesterday after 2 negative anion gap about 11 AM. Patient did not require IV insulin drip. Glucose is about 241, A1c 10.3%. Insulin dose increased Humalog and Lantus 2. Acute kidney injury?creatinine 2.29 getting better 1.76. IV fluid normal saline 1 L bolus ordered and then as per DKA protocol 11/02: BUNs/creatinine 28/1.19. MAGALIS almost resolved. 3. Hyponatremia, hypertonic hypovolemic hypoglycemia due to DKA: Repeat sodium is normal 130 11/02: Serum sodium 142 normal. IV fluid discontinued 4. Hypertension: BP was high 170/103, 182/104. Labetalol ordered. 11/02: Blood pressure is still elevated. Hydralazine started 5. Dysphagia most likely oropharyngeal dysphagia: Speech therapist ordered. Complain of sore throat, strep throat swab was taken. Mylanta ordered for symptomatic relief. 11/02: Patient started on Chloraseptic spray. On oral exam, no yeast found. Swallowing much better. Cleared by the speech therapist for regular diet. Thyroid does not seem enlarged on exam. TSH normal 6. DVT prophylaxis?low molecular weight heparin Patient will require assistance when transitioning to outpatient for oral diabetes and hypertension medication Microbiology Past 72 Hours 11/01/24 08:34 Mucosa - Throat Streptococcus pyogenes (PCR) - Final Laboratory Results 11/01/24 09:07: POC Glucose 366 H 11/01/24 10:01: POC Glucose 316 H 11/01/24 11:00: Sodium 145, Potassium 4.0, Chloride 114 H, Carbon Dioxide 24.0, Anion Gap 7, BUN 30 H, Creatinine 1.69 H, Estim Creat Clear Calc 43.28, Est GFR (MDRD) Af Amer 53 L, Est GFR (MDRD) Non-Af 44 L, BUN/Creatinine Ratio 17.8, G lucose 339 H, Calcium 9.1 11/01/24 11:06: POC Glucose 301 H 11/01/24 13:11: POC Glucose 239 H 11/01/24 16:31: POC Glucose 439 H 11/01/24 21:09: POC Glucose 269 H 11/02/24 05:29: WBC 11.7 H, RBC 4.69, Hgb 13.2, Hct 39.4 L, MCV 84.0, MCH 28.1, MCHC 33.5, RDW Std Deviation 34.6 L, RDW Coeff of Sarina 11.3 L, Plt Count 198, MPV 11.2, Immature Gran % (Auto) 0.300, Neut % (Auto) 76.2 H, Lymph % (Auto) 18.2 L, [place] % (Auto) 4.4, Eos % (Auto) 0.6, Baso % (Auto) 0.3, Absolute Neuts (auto) 8.9 H, Absolute Lymphs (auto) 2.12, Nucleated RBC % 0, Sodium 142, Potassium 4.0, Chloride 109 H, Carbon Dioxide 26.0, Anion Gap 7, BUN 20 H, Creatinine 1.19, Estim Creat Clear Calc 61.47, Est GFR (MDRD) Af Amer 79, Est GFR (MDRD) Non-Af 65, BUN/Creatinine Ratio 16.8, Glucose 244 H, Hemoglobin A1c 10.3 H, Calcium 8.8, TSH 0.501 11/02/24 06:25: POC Glucose 241 H Charges/Coding Visit Charges Inpatient E&M: 25171 Subs Hosp L2
[2024-11-02 09:27] LABS: T4 Free Direct 0.99 ng/dL (0.76-1.46)
[2024-11-02] MEDS: hydrALAZINE 50 MG Tablet PO ×3 (09:27→21:01)
[2024-11-02] MEDS: Insulin Glargine-YFGN 100 UNIT/ML Pen 30 UNIT SC (09:27)
[2024-11-02] MEDS: Insulin Lispro 100 UNIT/ML INSULN.PEN 13 UNIT SC ×2 (11:15→16:27)
[2024-11-02 11:33] LABS: Bedside Glucose 237 mg/dL (74-106)
--- NOTE | 2024-11-02 13:34 | CASEMGMT ---
Social Work- Pt son assisted pt in completing paperwork. [employer] provided paperwork and will process. SW remains available to follow. LILLIAN Mack
[2024-11-02 16:47] LABS: Bedside Glucose 195 mg/dL (74-106)
[2024-11-02] MEDS: 0.9% Saline Lock 10 ML Syringe IV (21:01)
[2024-11-02 21:50] LABS: Bedside Glucose 171 mg/dL (74-106)
[2024-11-03] VITALS (7 sets, daily range): BP systolic 126–169; BP diastolic 88–98; PULSE 87–105; RESP 16–18; TEMP 36.4–37.2; O2SAT 94–98
[2024-11-03] MEDS: 0.9% Saline Lock 10 ML Syringe IV (03:22)
[2024-11-03] MEDS: hydrALAZINE 20 MG/ML Vial 10 MG IV (03:22)
[2024-11-03 06:01] LABS: Absolute Lymphocyte Count 2.27 X10^3/uL (0.83-4.51); Basophil# 0.01 X10^3/uL; Basophil% 0.1 % (0-1); Eosinophil# 0.06 X10^3/uL; Eosinophils% 0.7 % (0-5); Hematocrit 40.1 % (40-54); Hemoglobin 13.2 g/dL (13.0-16.5); Lymphocyte # 2.27 X10^3/ul (0.83-4.51); Lymphocyte % 25.6 % (19-41); Mean Corp Hgb Conc 32.9 g/dL (32-36); Mean Corpuscular Hgb 27.3 pg (27.0-32.0); Mean Platelet Vol. 10.9 fl (6.2-12.0); Monocyte# 0.47 X10^3/uL; Monocyte% 5.3 % (0-10); NRBC Flagged by Analyzer 0 % (0-5); Neutrophil # 6.03 X10^3/uL (2.7-7.7); Neutrophil % 68.1 % (47-70); Platelet Count 189 K/mm3 (150-450); RBC Distribution Width CV 11.2 % (11.6-14.6); RBC Distribution Width SD 34.2 fl (35.1-43.9); Red Blood Count 4.83 M/mm3 (4.6-6.2); White Blood Count 8.9 K/mm3 (4.4-11.0)
[2024-11-03] MEDS: hydrALAZINE 50 MG Tablet PO (06:27)
[2024-11-03 06:48] LABS: Anion Gap 9 (5-15); BUN 18 mg/dL (7-18); BUN/Creat Ratio 15.5 RATIO (10-20); Calcium,Total 8.9 mg/dL (8.5-10.1); Chloride 105 mmol/L (98-107); Creatinine, Serum 1.16 mg/dL (0.70-1.30); EST Glomerular Filtration Rate 67 mL/min (>60); Est Glom Filt Rate - Afr Amer 82 mL/min (>60); Estimated Creatinine Clearance 63.06 ml/min; Glucose 304 mg/dL (74-106); Potassium 3.7 mmol/L (3.5-5.1); Sodium Level 137 mmol/L (136-145)
[2024-11-03] MEDS: Insulin Lispro 100 UNIT/ML INSULN.PEN SC ×2 (08:06→12:26)
[2024-11-03] MEDS: Insulin Lispro 100 UNIT/ML INSULN.PEN 13 UNIT SC ×2 (08:07→12:26)
[2024-11-03] MEDS: Insulin Glargine-YFGN 100 UNIT/ML Pen 30 UNIT SC (08:08)
[2024-11-03] MEDS: Enoxaparin 40 MG/0.4 ML Syringe SC (08:09)
[2024-11-03] MEDS: amLODIPine 10 MG Tablet PO (08:09)
--- NOTE | 2024-11-03 09:12 | PCM.DC.SUM ---
Providers Date of Admission: 10/31/24 Date of Discharge: 11/03/24 Primary Care Physician: No Primary Care Phys Reason For Visit: NEW ONSEST DIABETES, HYPERTENSIVE URGENCY, ACUTE Diagnosis Discharge Diagnosis (1) New onset type 2 diabetes mellitus: Status: Acute Code(s): E11.9 - Type 2 diabetes mellitus without complications (2) Hypertension: Status: Chronic Code(s): I10 - Essential (primary) hypertension (3) MAGALIS (acute kidney injury): Status: Acute Code(s): N17.9 - Acute kidney failure, unspecified (4) Dry throat: Status: Acute Code(s): J39.2 - Other diseases of pharynx Medications at Discharge Home Medications amlodipine 10 mg tablet 10 mg PO DAILY 90 days #90 tabs 11/03/24 atorvastatin 40 mg tablet 40 mg PO QHS #90 tabs 11/03/24 glimepiride 2 mg tablet 2 mg PO DAILY #90 tabs 11/03/24 insulin glargine 100 unit/mL (3 mL) subcutaneous pen (Lantus Solostar U-100 Insulin) 20 unit (0.2 mL) subcut BID #30 mL 11/03/24 losartan 25 mg tablet 25 mg PO DAILY #90 tabs 11/03/24 metformin 500 mg tablet 500 mg PO BID #180 tabs 11/03/24 Hospital Course Summary of Care Provided Minutes Spent on Discharge: 35 Hospital Course: 63-year-old gentleman was admitted with epigastric discomfort and weakness patient was found to have elevated glucose level as well as anion gap consistent with diabetic ketoacidosis transferred to the ICU treatment initiated per protocol 1. New onset diabetes mellitus type 2 ? Patient presented with diabetic ketoacidosis managed with IV fluids, systemic insulin with correction of electrolytes DKA resolved patient discharged on Lantus added metformin and glimepiride on discharge. Plans for patient to follow-up with [facility] for subsequent care. Case was discussed with the patient and the son via telephone prior to patient being discharged 2. Hyponatremia ? A combination of pseudohyponatremia as well as hypovolemic hyponatremia resolved with treatment of patient's DKA as well as with IV fluid resuscitation 3. Newly diagnosed hypertension ? Prescription was written for amlodipine and losartan on discharge 4.Acute kidney injury ? Secondary to recent motor nephropathy from severe dehydration resolved with IV fluids 5. DVT prophylaxis ? Subcu heparin Physical Exam Narrative GENERAL: cooperative HEENT: Atraumatic; normocephalic EYES; Anicteric, Normal Conjunctiva NECK; supple, normal thyroid, RESPIRATORY: Diminished to auscultation CARDIOVASCULAR: Regular S1 S2, GI: soft, normoactive bowel sounds, : No Renal angle tenderness; EXTREMITIES: No edema, no clubbing, MUSCULOSKELETAL: no muscle wasting NEURO: Awake; no lateralizing signs. SKIN: No Rash PSYCH; Flat affect Weight / BMI Weight Weight: 73.3 kg Body Mass Index (BMI) 24.5 ABG / Lab / Microbiology Data 11/03/24 05:42 11/03/24 05:42 Laboratory: Laboratory Results - last 24 hr 11/02/24 05:29: Free T4 0.99 11/02/24 11:12: POC Glucose 237 H 11/02/24 16:26: POC Glucose 195 H 11/02/24 20:58: POC Glucose 171 H 11/03/24 05:42: WBC 8.9, RBC 4.83, Hgb 13.2, Hct 40.1, MCV 83.0, MCH 27.3, MCHC 32.9, RDW Std Deviation 34.2 L, RDW Coeff of Sarina 11.2 L, Plt Count 189, MPV 10.9, Immature Gran % (Auto) 0.200, Neut % (Auto) 68.1, Lymph % (Auto) 25.6, [place] % (Auto) 5.3, Eos % (Auto) 0.7, Baso % (Auto) 0.1, Absolute Neuts (auto) 6.0, Absolute Lymphs (auto) 2.27, Nucleated RBC % 0, Sodium 137, Potassium 3.7, Chloride 105, Carbon Dioxide 23.0, Anion Gap 9, BUN 18, Creatinine 1.16, Estim Creat Clear Calc 63.06, Est GFR (MDRD) Af Amer 82, Est GFR (MDRD) Non-Af 67, BUN/Creatinine Ratio 15.5, Glucose 304 H, Calcium 8.9 Microbiology: Microbiology 11/01/24 08:34 Mucosa - Throat Streptococcus pyogenes (PCR) - Final D/C Instructions Discharge Diet: 1800 Calorie Control Diet Discharge Activity: Return to Normal Activity Call your doctor if you observe: Fever of 101 or Higher, Shortness of breath, Fainting spells and Chest pain DC O2, CPAP, BIPAP Needs Home O2 Discharge instructions: No Meaningful Use Info Meaningful Use Meaningful Use Diagnoses (Choose all that apply): None applicable Ischemic Stroke Statin Dosing Therapy Reference: STATIN DOSE THERAPY REFERENCE: * Patients > 75 years receive moderate or high dose statin therapy. * Patients 75 years or YOUNGER should receive HIGH intensity statin dose unless contraindicated. You will be required to document reason for non-treatment if statin daily dose does not meet guidelines. HIGH DOSE STATIN THERAPY DAILY Atorvastatin > than or = to 40 mg Rosuvastatin > than or = to 20 mg Amlodipine + Atorvastatin > than or = to 2.5/40 mg Ezetimibe + Simvastatin 10/80 mg Simvastatin 80mg Discharge Plan Admission Admit Date/Time: 10/31/24 22:39 Attending Provider: Fernando Hatfield Primary Care Provider: Care Physician,No Primary Consulting Providers: Romeo Carpio; Diomedes Dove Discharge Orders/Prescriptions Prescriptions: New amlodipine 10 mg Tablet 10 mg PO DAILY 90 Days Qty: 90 3RF losartan 25 mg tablet 25 mg PO DAILY Qty: 90 3RF atorvastatin 40 mg tablet 40 mg PO QHS Qty: 90 3RF metformin 500 mg tablet 500 mg PO BID Qty: 180 3RF glimepiride 2 mg tablet 2 mg PO DAILY Qty: 90 3RF insulin glargine [Lantus Solostar U-100 Insulin] 100 unit/mL (3 mL) insulin pen 20 unit subcut BID Qty: 30 0RF Referrals / Follow Up: Care Physician,No Primary [Primary Care Provider] - [facility] Within 2 Weeks Disposition Disposition (needs filled in before D/C Order can be placed): Home, Self Care Charges/Coding Visit Charges Inpatient E&M: 28013 Disch Hosp >30min
--- NOTE | 2024-11-03 10:34 | CASEMGMT ---
Addendum entered by Daphney Dominguez 11/03/24 11:01: Pt son states that he will be picking the pt up from [facility] around 1400 today. Addendum entered by Daphney Dominguez 11/03/24 10:58: TC #2 to [facility], no answer. This RN CM attempted to connect with the CM. VM left. TC to pt son at this time. Pt son notified that once the [facility] returns call that this RN CM will contact the pt son with the appt time. Pt son also educated that he can call or submit the pt info through the [facility] website if he chooses. Pt still has [facility] handout that was initially provided. Pt son thanks this RN CM and denies further needs. RN CM to pt room at this time. Pt updated with this information via can piler and the pt thanks this RN CM and denies further needs at this time. Original Note: Pt has an order for DC placed. Rx for BGM with supplies signed by Dr. Hatfield. Copy placed in pt chart and original Rx sent to [facility] at this time. TC to [facility]. [facility] states that the total cost for the pt prescriptions comes to $399.86. RN CM to pt room at this time. Pt is on the phone with his son, Sukh, who speaks Maldivian. Pt notified of the total Rx cost and the pt reports that he can afford this and has a credit card to pay with. Card info provided to [facility] and [facility] will deliver the pt medications and supplies to the bedside soon. Pt thanks this RN CM. Pt is also requiring establishment with a PCP. This RN CM provided the pt with [facility] info during the initial assessment. This RN CM also provided the pt with a local list of PCP's. Pt reports that he would be interested in getting established through [facility]. Pt denies a preference for the time of day for his 1st appt. TC to [facility]. No answer, VM left with return number. CM to follow. Pt and pt son updated on this status and deny further questions, concerns, or needs at this time.
[2024-11-03 11:42] LABS: Bedside Glucose 293 mg/dL (74-106)
[2024-11-03 12:40] LABS: Lipase 74 U/L (13-75)
== END 2024-11-03 15:03 | disposition home or self-care (01) | DRG 638 ==
LOC: ED 20:20 → PCU 11-01 03:27 → ICU 11-01 09:09 → MS3 11-03 07:13 → ICU 11-03 10:05
PROVIDERS: Internal Medicine; Admitting Provider Family Medicine; Emergency Provider Emergency Medicine; Visit Provider Internal Medicine
DX: E11.10 Type 2 diabetes mellitus with ketoacidosis without coma (principal); N17.9 Acute kidney failure, unspecified; E87.1 Hypo-osmolality and hyponatremia; E11.65 Type 2 diabetes mellitus with hyperglycemia; I10 Essential (primary) hypertension; K56.41 Fecal impaction; R07.9 Chest pain, unspecified; R10.13 Epigastric pain; Z98.890 Other specified postprocedural states
CPT/HCPCS: 36415; 71045; 74176; 80048; 80053; 82009; 82803; 82947; 82962; 83036; 83690; 83735; 83930; 84439; 84443; 84484; 85025; 87651; 92610; 93005; 97802; 99285; A4216; J2405

== ENCOUNTER 2025-04-21 08:42 | Emergency (ER) | payer OTHER, SELFPAY ==
[2025-04-21 08:42] VITALS: BP 218/130; PULSE 92; RESP 14; TEMP 36.6; O2SAT 98; BMI 24.6
--- NOTE | 2025-04-21 09:33 | CT_ITS ---
EXAM: CT Lumbar Spine Without Intravenous Contrast CLINICAL INDICATION: BACK PAIN TECHNIQUE: Axial computed tomography images of the lumbar spine without intravenous contrast. This CT exam was performed using one or more of the following dose reduction techniques: automated exposure control, adjustment of the mA and/or kV according to patient size, and/or use of iterative reconstruction technique. COMPARISON: No relevant prior studies available. FINDINGS: VERTEBRAE: Mild facet arthropathy of L3-S1. Mild endplate degenerative changes of L 1 to L5. Anterior spurring of T11-L4. No acute fracture. DISCS/SPINAL CANAL/NEURAL FORAMINA: See above. SOFT TISSUES: Unremarkable. CT/Spine Lumbar without Contrast IMPRESSION: 1. No acute fracture. 2. Degenerative changes as above. Reading Location: [facility]
[2025-04-21] MEDS: Ketorolac 30 MG/ML Syringe IM (09:43)
--- NOTE | 2025-04-21 10:01 | ED.VIS.BACK ---
HPI History of Present Illness Chief Complaint: Back Narrative Narrative: Chief complaint and HPI: Lumbar back pain. 64-year-old gentleman with past medical history of HTN, HLD, DM2 presents for evaluation of lumbar back pain. Patient does not speak Haitian and therefore official billing adjudicator was used. Patient states yesterday he was lifting heavy boxes when he shortly later developed lumbar back pain. Lumbar back pain is lower and radiates to bilateral sides. At baseline he has diabetic neuropathy of the feet but denies any new numbness or tingling. Denies weakness, urinary retention, stool or urinary incontinence, saddle anesthesia, fever, abdominal pain, nausea, vomiting, chest pain, shortness of breath. He has not taken anything for the pain. Review of systems: See HPI Medications: As listed on the chart Allergies: As listed on the chart PFSH: Per chart Vital signs: As listed on the chart. Reviewed. Physical exam: Gen: A&O x3, NAD Head: Normocephalic, atraumatic Eyes: No sclera icterus, conjunctiva clear ENT: Moist mucous membranes Neck: Trachea midline, No JVD CV: RRR, no murmurs, no peripheral edema Resp: Lungs CTA BL, no w/r/c GI: Abd soft, non-distended, non-tender, no r/r/g Musc: Full ROM, no deformity no midline spinal tenderness, no bony step-offs, patient has tenderness to palpation along the paraspinal musculature of the lumbar spine bilaterally, no signs of injury or infection DP/PT pulses +2 bilaterally, strength plus 5 out of 5 in all extremities Skin: Warm, dry Neuro: Alert, oriented, grossly intact, sensation intact Psych: Cooperative, appropriate mood and affect [facility] Medical History (Updated 04/21/25 @ 11:[address] Everardo Fermin, DO) Diabetes Home Medications ?Medication ?Instructions ?Recorded ?Last Taken ?Type amlodipine 10 mg tablet 10 mg PO DAILY 90 days #90 tabs 11/03/24 Unknown Rx atorvastatin 40 mg tablet 40 mg PO QHS #90 tabs 11/03/24 Unknown Rx glimepiride 2 mg tablet 2 mg PO DAILY #90 tabs 11/03/24 Unknown Rx insulin glargine 100 unit/mL (3 20 unit (0.2 mL) subcut BID #30 mL 11/03/24 Unknown Rx mL) subcutaneous pen (Lantus Solostar U-100 Insulin) losartan 25 mg tablet 25 mg PO DAILY #90 tabs 11/03/24 Unknown Rx metformin 500 mg tablet 500 mg PO BID #180 tabs 11/03/24 Unknown Rx pen needle, diabetic 31 gauge x #100 ea 11/03/24 Unknown Rx / cyclobenzaprine 5 mg tablet 5 mg PO TID PRN muscle spasm 3 04/21/25 Unknown Rx days #9 tabs Allergy/AdvReac Type Severity Reaction Status Date / Time No Known Allergies Allergy Verified 04/21/25 09:14 Social History Smoking Status: Never smoker EXAM Physical Exam Const Vital Signs: 04/21/25 08:42 04/21/25 10:37 04/21/25 10:59 Temperature 98 F 98.0 F Temperature Source Temporal Pulse Rate 92 73 75 Respiratory Rate 14 16 16 Blood Pressure 218/130 H 157/108 H 182/115 H Blood Pressure Mean 159 124 137 Pulse Ox 98 98 97 Oxygen Delivery Method Room Air Room Air MDM MDM MDM Narrative Medical decision making narrative: 64-year-old gentleman with past medical history of HTN, HLD, DM2 presents for evaluation of lumbar back pain. Patient does not speak Haitian and therefore official billing adjudicator was used. Patient states yesterday he was lifting heavy boxes when he shortly later developed lumbar back pain. Lumbar back pain is lower and radiates to bilateral sides. There is nothing to suggest any infectious etiology. There is no neurologic findings to suggest an acute cauda equina syndrome, infectious etiology, or any acute radiculopathy. At this point I do not feel any emergent MRI is needed. Will obtain CT of the lumbar spine to assess for fracture. Differential diagnosis includes but is not limited to myofascial spasm, back strain, fracture. On presentation patient is no acute distress other than hypertension. He supposed to be on amlodipine and losartan however has not been taking this. His hypertension may be secondary to noncompliance with medication versus pain. Will treat his pain with IM Toradol and Valium. Will reassess the blood pressure. CT of the lumbar spine ordered. CT of the lumbar spine without any acute fracture. Patient does have degenerative changes. On reevaluation, patient's pain has improved although is still present. He is able to ambulate without difficulty. I do think his pain is secondary to a lumbar back strain versus spasm. His blood pressure improved with pain medicine however is still hypertensive at 182/115, I do think his hypertension is a component of pain as well as not taking his medication.. He is asymptomatic from the hypertension. I do not think further hypertensive workup is needed. Patient states that he has not been taking his antihypertensive medications. He states that he has them all at home. He was educated the importance of taking his antihypertensives. He was told he needs to go home and take these. He was told he needs to monitor his blood pressure. He needs to take all of his medication that is prescribed regularly the right way. He confirmed understanding. Return precautions were explained. Follow-up with primary care physician. Tylenol and Motrin as needed for pain. Muscle relaxers as needed. Patient given a work note for today. Official billing adjudicator was used. Impression: 1. Lumbar back strain 2. Hypertension with history of hypertension, not compliant with medication Radiography Diagnostic Testing: Clinical Impression(s) from Imaging Studies Lumbar Spine CT 04/21/25 09:33 IMPRESSION: 1. No acute fracture. 2. Degenerative changes as above. Reading Location: [facility] Discharge Plan Triage Chief Complaint: Back ED Provider: Everardo Fermin Dx/Rx/DC Orders Clinical Impression: Acute lumbar back pain Instructions: ED Back Spasm, No Trauma, ED Back Sprain/Strain Prescriptions: New cyclobenzaprine 5 mg tablet 5 mg PO TID PRN (Reason: muscle spasm) 3 Days Qty: 9 0RF No Action amlodipine 10 mg Tablet 10 mg PO DAILY 90 Days Qty: 90 3RF losartan 25 mg tablet 25 mg PO DAILY Qty: 90 3RF atorvastatin 40 mg tablet 40 mg PO QHS Qty: 90 3RF metformin 500 mg tablet 500 mg PO BID Qty: 180 3RF glimepiride 2 mg tablet 2 mg PO DAILY Qty: 90 3RF insulin glargine [Lantus Solostar U-100 Insulin] 100 unit/mL (3 mL) insulin pen 20 unit subcut BID Qty: 30 0RF Patient Comments: pt states he only uses insulin if his BS is over 300 (DME) pen needle, diabetic 31 gauge x 5/32 needle See Rx Instructions .ROUTE .MEDSUPPLY Qty: 100 0RF Rx Instructions: As directed Stand Alone Forms: ED Work / School Excuse Primary Care Provider: Care Physician,No Primary Referrals: Romeo Carpio MD [Med Staff - Active Staff] - 3-5 Days Care Physician,No Primary [Primary Care Provider] - 3-5 Days Activity Restrictions/Additional Instructions: Follow-up with your primary care physician who writes your medications. If you want a new primary care physician follow-up with the one provided above. You need to go home and take all of your blood pressure medication. You need to be taking all of your medication that is prescribed regularly and every day. Monitor your blood pressure at home. You received Toradol here in the emergency department, no ibuprofen for 8 hours. Okay for Tylenol. You received a muscle relaxer here in the emergency department, no muscle relaxer for [address] heavy machinery while taking muscle relaxers. They can increase confusion, falls, dizziness. Return back to the ED if symptoms change or worsen. Print Language: Oscar Cutler Disposition Disposition: Home, Self Care
[2025-04-21 10:37] VITALS: BP 157/108; PULSE 73; RESP 16; O2SAT 98
[2025-04-21 10:59] VITALS: BP 182/115; PULSE 75; RESP 16; TEMP 36.7; O2SAT 97
== END 2025-04-21 11:42 | disposition home or self-care (01) ==
PROVIDERS: Emergency Provider Surgery; Visit Provider Surgery
DX: S39.012A Strain of muscle, fascia and tendon of lower back, initial encounter (principal); E11.40 Type 2 diabetes mellitus with diabetic neuropathy, unspecified; I10 Essential (primary) hypertension; E78.5 Hyperlipidemia, unspecified; Z91.148 Patient's other noncompliance with medication regimen for other reason; Z79.899 Other long term (current) drug therapy; X50.0XXA Overexertion from strenuous movement or load, initial encounter
CPT/HCPCS: 72131; 96372; 99282

== ENCOUNTER 2025-05-12 18:54 | Inpatient (IN) | payer OTHER, SELFPAY ==
[2025-05-12] VITALS (9 sets, daily range): BP systolic 162–184; BP diastolic 93–110; PULSE 65–83; RESP 15–27; TEMP 35.8–36.7; O2SAT 98–100; BMI 23.8; BMI 22.7
--- NOTE | 2025-05-12 19:18 | EX.ED.DYSGE1 ---
HPI History of Present Illness Chief Complaint: Hyperglycemia Narrative Narrative: Chief complaint and HPI: 64-year-old gentleman with past medical history of HTN, HLD, DM2 presents for evaluation of dry mouth, urinary frequency, and hyperglycemia. Official sand drier used as patient does not speak Nicaraguan. Patient is a very poor historian. Patient's is noncompliant with medication. States that he ran out of multiple medications approximately 3 weeks ago. Did not follow-up with a primary care physician. Unknown if he really has a primary care physician. Patient states for the past several weeks he has been having dry mouth, urinary frequency. States his glucometer reading is high. Triage note states that patient had sudden onset of chest pain and dizziness while standing however he denies this to me. He denies any fever, chills, shortness of breath, chest pain abdominal pain, nausea, vomiting. Review of systems: See HPI Medications: As listed on the chart Allergies: As listed on the chart PFSH: Per chart Vital signs: As listed on the chart. Reviewed. Physical exam: Gen: A&O x3, NAD Head: Normocephalic, atraumatic Eyes: No sclera icterus, conjunctiva clear ENT: Dry mucous membranes Neck: Trachea midline, No JVD CV: RRR, no murmurs, no peripheral edema Resp: Lungs CTA BL, no w/r/c GI: Abd soft, non-distended, non-tender, no r/r/g Musc: Full ROM, no deformity Skin: Warm, dry Neuro: Alert, oriented, grossly intact, sensation intact Psych: Cooperative, appropriate mood and affect [facility] History Diabetes Home Medications ?Medication ?Instructions ?Recorded ?Last Taken ?Type amlodipine 10 mg tablet 10 mg PO DAILY 90 days #90 tabs 11/03/24 Unknown Rx atorvastatin 40 mg tablet 40 mg PO QHS #90 tabs 11/03/24 Unknown Rx glimepiride 2 mg tablet 2 mg PO DAILY #90 tabs 11/03/24 Unknown Rx insulin glargine 100 unit/mL (3 20 unit (0.2 mL) subcut BID #30 mL 11/03/24 Unknown Rx mL) subcutaneous pen (Lantus Solostar U-100 Insulin) losartan 25 mg tablet 25 mg PO DAILY #90 tabs 11/03/24 Unknown Rx metformin 500 mg tablet 500 mg PO BID #180 tabs 11/03/24 Unknown Rx pen needle, diabetic 31 gauge x #100 ea 11/03/24 Unknown Rx cyclobenzaprine 5 mg tablet 5 mg PO TID PRN muscle spasm 3 04/21/25 Unknown Rx days #9 tabs Allergy/AdvReac Type Severity Reaction Status Date / Time No Known Allergies Allergy Verified 04/21/25 09:14 Social History Smoking Status: Never smoker EXAM Physical Exam Const Vital Signs: 05/12/25 19:09 05/12/25 19:09 05/12/25 20:09 Temperature 98.1 F Temperature Source Oral Pulse Rate 83 77 Respiratory Rate 27 H 18 Respiratory Effort Short of Breath Respiratory Pattern Tachypnea Blood Pressure 184/107 H 165/110 H Blood Pressure Mean 132 128 Pulse Ox 100 Oxygen Delivery Method Room Air MDM MDM MDM Narrative Medical decision making narrative: 64-year-old gentleman with past medical history of HTN, HLD, DM2 presents for evaluation of dry mouth, urinary frequency, and hyperglycemia. Official sand drier used as patient does not speak Nicaraguan. Patient is a very poor historian. Patient's is noncompliant with medication. States that he ran out of multiple medications approximately 3 weeks ago. Did not follow-up with a primary care physician. Triage note states that the patient had sudden onset dizziness and lightheadedness while standing. He denies this to me. Differential diagnosis includes but is not limited to hyperglycemia, DKA, HHS, electrolyte abnormality, MAGALIS. On presentation, patient no acute distress. He is hypertensive, likely secondary to not taking all of his medication. NS bolus ordered. Hyperglycemia workup ordered. VBG with normal pH. CBC without leukocytosis or anemia. CMP shows dehydration with MAGALIS and hyperglycemia. Hypokalemia of 130, hyperkalemia of 6.2 (no peaked T waves), anion gap of 24, MAGALIS with BUN of 38, creatinine 1.63, glucose 896. No transaminitis. Hypermagnesemia 2.8. Beta hydroxybutyrate 5.8. Troponin unremarkable. UA negative for UTI but positive for ketones and glucose. Patient's electrolyte abnormalities and dehydration is likely secondary to his hyperglycemia and uncontrolled diabetes. 10 units IV insulin ordered. This will help with the hyperglycemia as well as hyperkalemia. Another NS bolus ordered making a total of 2 L. Will add on serum osm for suspected suspected HHS. Insulin drip started. Patient will warrant admission. Patient was updated of the results and the plan via official sand drier. He confirmed understanding. EKG: Interpreted by me/EM physician: EKG shows normal sinus rhythm with LVH. Nonspecific T wave abnormalities. Heart rate 86. Similar to previous EKG in October. Diagnostic: Interpreted by me/EM physician: Chest x-ray without pneumonia, effusion, cardiomegaly, pneumothorax Impression: 1. Hyperglycemia and known type II diabetic noncompliant with medication, suspect HHS 2. Dehydration with MAGALIS 3. Hyperkalemia 4. Metabolic anion gap 5. Hypermagnesemia Lab Data Labs: Laboratory Results - last 24 hr 05/12/25 05/12/25 05/12/25 18:59 19:15 19:44 WBC 8.0 RBC 4.60 Hgb 13.2 Hct 38.8 L MCV 84.3 MCH 28.7 MCHC 34.0 RDW Std Deviation 35.7 RDW Coeff of Sarina 11.8 Plt Count 223 MPV 10.9 Immature Gran % (Auto) 0.300 Neut % (Auto) 91.1 H Lymph % (Auto) 7.2 L [place] % (Auto) 1.3 Eos % (Auto) 0.0 Baso % (Auto) 0.1 Absolute Neuts (auto) 7.3 Absolute Lymphs (auto) 0.57 L Nucleated RBC % 0 Sodium 130 L Potassium 6.2 H* Chloride 90 L Carbon Dioxide 15.6 L Anion Gap 24 H BUN 38 H Creatinine 1.63 H Estim Creat Clear Calc 45.78 L Est GFR (MDRD) Non-Af 47 L BUN/Creatinine Ratio 23.0 H Glucose 896 H* Calcium 9.1 Magnesium 2.8 H Total Bilirubin 0.99 AST 13 ALT 20 Alkaline Phosphatase 94 Troponin T High Sens 11 Total Protein 7.8 Albumin 4.4 Globulin 3.4 Albumin/Globulin Ratio 1.3 b-Hydroxybutyric mmol/L 5.8 H Urine Color Straw Urine Clarity Clear Urine pH 6.0 Ur Specific [place] 1.010 Urine Protein Negative Urine Glucose (UA) 1000 H Urine Ketones 50 H Urine Occult Blood Negative Urine Nitrite Negative Urine Bilirubin Negative Urine Urobilinogen Normal Ur Leukocyte Esterase Negative Urine RBC 0 SEEN Urine WBC 0 SEEN Ur Squamous Epith Cells 0 SEEN Urine Bacteria 0 SEEN Urine Mucus 0 SEEN POC Glucose > 500 H* ABG Data ABG results: ABG 05/12/25 19:35 Specimen Type AMY Sample Site Not entered VBG pH 7.32 VBG pO2 66 H VBG HCO3 17 L VBG Total CO2 18 L VBG O2 Sat (Calc) 91 H VBG Base Excess -9 L POC Mix VBG pCO2 Pt Tmp 33.3 L O2 Delivery Device Room Air Discharge Plan Triage Chief Complaint: Hyperglycemia ED Provider: Everardo Fermin Dx/Rx/DC Orders Prescriptions: No Action amlodipine 10 mg Tablet 10 mg PO DAILY 90 Days Qty: 90 3RF losartan 25 mg tablet 25 mg PO DAILY Qty: 90 3RF atorvastatin 40 mg tablet 40 mg PO QHS Qty: 90 3RF metformin 500 mg tablet 500 mg PO BID Qty: 180 3RF glimepiride 2 mg tablet 2 mg PO DAILY Qty: 90 3RF insulin glargine [Lantus Solostar U-100 Insulin] 100 unit/mL (3 mL) insulin pen 20 unit subcut BID Qty: 30 0RF Patient Comments: pt states he only uses insulin if his BS is over 300 (DME) pen needle, diabetic 31 gauge x 5/32 needle See Rx Instructions .ROUTE .MEDSUPPLY Qty: 100 0RF Rx Instructions: As directed cyclobenzaprine 5 mg tablet 5 mg PO TID PRN (Reason: muscle spasm) 3 Days Qty: 9 0RF Primary Care Provider: Care Physician,No Primary Referrals: Care Physician,No Primary [Primary Care Provider] - Print Language: Montenegrinadan Cutler
[2025-05-12] MEDS: 0.9% Normal Saline (1000mL) 1,000 ML 999 ML IV (19:37)
[2025-05-12 19:39] LABS: SITE Not entered; VBG BASE EXCESS -9 mmol/L (-1.0-3.5); VBG PO2 66 mmHg (25-40); VBG SO2 91 % (50-70); VBG TCO2 18 mmol/L (23-33)
--- NOTE | 2025-05-12 19:41 | RAD_ITS ---
PROCEDURE: CHEST 1 VIEW (PORTABLE) 05/12/2025 REASON FOR EXAM: HYPERGLYCEMIA TECHNIQUE: Frontal view of the chest. COMPARISON: 10/31/2024 FINDINGS: Hardware: EKG leads overlie the chest Heart: The heart size is normal. Lungs: The lungs are clear. Bones: The bones are unremarkable. Other: RAD/Chest 1 View (Portable) IMPRESSION: No acute pulmonary process, no interval change Reading Location: [id number]
[2025-05-12 19:42] LABS: Hematocrit 38.8 % (40-54); Hemoglobin 13.2 g/dL (13.0-16.5); Immature Granulocytes Count 0.020 X10^3/uL (0.0-0.0); Mean Corp Hgb Conc 34.0 g/dL (32-36); Mean Corpuscular Volume 84.3 fL (80-94); Mean Platelet Vol. 10.9 fl (6.2-12.0); NRBC Flagged by Analyzer 0 % (0-5); POSITIVE DIFFERENTIAL YES; Platelet Count 223 K/mm3 (150-450); RBC Distribution Width CV 11.8 % (11.6-14.6); RBC Distribution Width SD 35.7 fl (35.1-43.9); Red Blood Count 4.60 M/mm3 (4.6-6.2); White Blood Count 8.0 K/mm3 (4.4-11.0)
--- NOTE | 2025-05-12 19:45 | EKG12_ITS ---
Test Reason : DYSRHYTHMIA Blood Pressure : */* mmHG Vent. Rate : 86 BPM Atrial Rate : 86 BPM P-R Int : 158 ms QRS Dur : 92 ms QT Int : 400 ms P-R-T Axes : 46 2 -17 degrees QTcB Int : 478 ms Normal sinus rhythm Moderate voltage criteria for LVH, may be normal variant ( R in aVL , Sokolow- Johnston ) T wave abnormality, consider inferior ischemia Abnormal ECG Confirmed by JEANNE GEORGE, LUNA ([id number]), movie editor DHAVAL MURGUIA ([id number]) on 05/15/2025 7:00:29 AM Referred By: YOAN Confirmed By: LUNA ANGEL MD
--- OUTSIDE RECORDS SUMMARY | 2025-05-12 19:47 | XMS RPT_ITS | CCD ---
Author Organization [facility] Care Team Providers Care Quality Control Scientist Name Role Phone Care Physician, No Primary Primary Care Provider Unavailable Dr. Everardo Fermin DO Emergency Provider Fernando Hatfield Attending Unavailable Carpio, Romeo Consulting Unavailable Balaji, Romeo Admitting Unavailable Care Physician, No Primary Primary Care Unava ilable Diomedes Dove Consulting Unavailable Fernando Hatfield Consulting Unavailable Care Physician, No Primary Primary Care Unava ilable Balaji, Romeo Consulting Unavailable Balaji, Romeo Attending Unavailable Romeo Carpio Admitting Unavailable Diomedes Dove Attending Unavailable Everardo Fermin Attending Unavailabl e Care Physician, No Primary Primary Care Unava ilable Care Physician, No Primary Primary Care Unava ilable Fernando Hatfield Attending Unavailable Romeo Carpio Admitting Unavailable Carpio, Romeo Consulting Unavailable Diomedes Dove Consulting Unavailable Medications Current Medications Medication Drug Class(es) Dates Sig (Normalized) Sig (Original) amLODIPine 10 mg oral tablet (1 source) Dihydropyridine Calcium Channel Sg Start: 11-03-2024 take 1 tablet by mouth once daily Amlodipine 10 mg Tablet Active 10 mg PO DAILY 90 90 3 November 03, 2024 1:00am atorvastatin 40 mg oral tablet (1 source) HMG-CoA Reductase Inhibitor Start: 11-03-2024 take 1 tablet by mouth at bedtime Atorvastatin 40 mg tablet Active 40 mg PO AT BEDTIME 90 3 November 03, 2024 1:00am cyclobenzaprine hydrochloride 5 mg oral tablet (1 source) Muscle Relaxant Start: 04-21-2025 take 1 tablet by mouth three times daily as needed for muscle spasms Cyclobenzaprine 5 mg tablet Active 5 mg PO THREE TIMES A DAY as needed for muscle spasm 9 3 0 April 21, 2025 12:00am glimepiride 2 mg oral tablet (1 source) Sulfonylurea Start: 11-03-2024 take 1 tablet by mouth once daily Glimepiride 2 mg tablet Active 2 mg PO DAILY 90 November 03, 2024 1:00am 3 ml insulin glargine 100 unt/ml pen injector (1 source) Insulin Analog Start: 11-03-2024 Insulin Glargine (Lantus Solostar U-100 Insulin) 100 unit/mL (3 mL) insulin pen Active 20 U SC TWICE A DAY 30 November 03, 2024 1:00am losartan potassium 25 mg oral tablet (1 source) Angiotensin 2 Receptor Sg Start: 11-03-2024 take 1 tablet by mouth once daily Losartan 25 mg tablet Active 25 mg PO DAILY 90 November 03, 2024 1:00am metFORMIN hydrochloride 500 mg oral tablet (1 source) Biguanide Start: 11-03-2024 take 1 tablet by mouth twice daily Metformin 500 mg tablet Active 500 mg PO TWICE A DAY 180 November 03, 2024 1:00am Problems Active Problems Problem Classification Problem Date Documented Da te Episodic/Chronic Diabetes mellitus without complication (2 sources) Type 2 diabetes mellitus; Translations: [Type 2 diabetes mellitus without complications] Onset: 11-03-2024 10-31-2024 Chronic Essential hypertension (2 sources) Hypertensive disorder; Translations: [Essential (primary) hypertension] Onset: 11-03-2024 10-31-2024 Chronic Influenza (2 sources) Influenza due to Influenza A virus; Translations: [Influenza due to other identified influenza virus with other respiratory manifestations] 12-19-2023 Episodic Other upper respiratory disease (1 source) Pharyngeal dryness; Translations: [Other diseases of pharynx] 11-11-2024 Episodic Spondylosis; intervertebral disc disorders; other back problems (1 source) Acute low back pain; Translations: [Acute low back pain] 04-21-2025 Episodic Unclassified (1 source) Low back pain, unspecified; Translations: [Low back pain, unspecified] Onset: 04-25-2025 Viral infection (2 sources) Viral disease; Translations: [Viral infection, unspecified] 12-19-2023 Episodic Past or Other Problems Problem Classification Problem Date Documented Da te Episodic/Chronic Acute and unspecified renal failure (2 sources) Acute renal failure syndrome; Translations: [Acute kidney failure, unspecified] Onset: 11-03-2024 11-11-2024 Episodic Malaise and fatigue (1 source) Weakness; Translations: [Weakness] Onset: 2024 Episodic Other upper respiratory disease (1 source) Other diseases of pharynx; Translations: [Other diseases of pharynx] Onset: 11-03-2024 Episodic Results Test Name Value Interpretation Reference Range Facility Emergency Department Summary on 04-21-2025 Emergency Department Summary [facility] Medical Records Department [address] [place] [address] Emergency Department Summary 04/21/25 MR#: [id number] Acct: [id number] Name: MARIYA MATHEWS Rep #: [id number] : 1960 64 From: Everardo Fermin DO PCP: Care Physician,No Primary Status:REG ER Location: ED HPI History of Present Illness Chief Complaint: Back Narrative Narrative: Chief complaint and HPI: Lumbar back pain. 64-year-old gentleman with past medical history of HTN, HLD, DM2 presents for evaluation of lumbar back pain. Patient does not speak Spanish and therefore official zoo veterinarian was used. Patient states yesterday he was lifting heavy boxes when he shortly later developed lumbar back pain. Lumbar back pain is lower and radiates to bilateral sides. At baseline he has diabetic neuropathy of the feet but denies any new numbness or tingling. Denies weakness, urinary retention, stool or urinary incontinence, saddle anesthesia, fever, abdominal pain, nausea, vomiting, chest pain, shortness of breath. He has not taken anything for the pain. Review of systems: See HPI Medications: As listed on the chart Allergies: As listed on the chart PFSH: Per chart Vital signs: As listed on the chart. Reviewed. Physical exam: Gen: A O x3, NAD Head: Normocephalic, atraumatic Eyes: No sclera icterus, conjunctiva clear ENT: Moist mucous membranes Neck: Trachea midline, No JVD CV: RRR, no murmurs, no peripheral edema Resp: Lungs CTA BL, no w/r/c GI: Abd soft, non-distended, non-tender, no r/r/g Musc: Full ROM, no deformity no midline spinal tenderness, no bony step-offs, patient has tenderness to palpation along the paraspinal musculature of the lumbar spine bilaterally, no signs of injury or infection DP/PT pulses +2 bilaterally, strength plus 5 out of 5 in all extremities Skin: Warm, dry Neuro: Alert, oriented, grossly intact, sensation intact Psych: Cooperative, appropriate mood and affect [facility] Medical History (Updated 04/21/25 @ 11:[address] Everardo Fermin, DO) Diabetes Home Medications ???Medication ???Instructions ???Recorded ???Last Taken ???Type amlodipine 10 mg tablet 10 mg PO DAILY 90 days #90 tabs Unknown Rx atorvastatin 40 mg tablet 40 mg PO QHS #90 tabs 11/03/24 Unk nown Rx glimepiride 2 mg tablet 2 mg PO DAILY #90 tabs 11/03/24 Un known Rx insulin glargine 100 unit/mL (3 20 unit (0.2 mL) subcut BID #30 mL 11/03/24 Unknown Rx mL) subcutaneous pen (Lantus Solostar U-100 Insulin) losartan 25 mg tablet 25 mg PO DAILY #90 tabs 11/03/24 U nknown Rx metformin 500 mg tablet 500 mg PO BID #180 tabs 11/03/24 U nknown Rx pen needle, diabetic 31 gauge x #100 ea 11/03/24 Unknown Rx cyclobenzaprine 5 mg tablet 5 mg PO TID PRN muscle spasm 3 09/05 Unknown Rx days #9 tabs Allergy/AdvReac Type Severity Reaction Status Date / Time No Known Allergies Allergy Verified 04/21/25 09:14 Social History Smoking Status: Never smoker EXAM Physical Exam Const Vital Signs: 04/21/25 08:42 04/21/25 10:37 04/21/25 10:59 Temperature 98 F 98.0 F Temperature Source Temporal Pulse Rate 92 73 75 Respiratory Rate 14 16 16 Blood Pressure 218/130 H 157/108 H 182/115 H Blood Pressure Mean 159 124 137 Pulse Ox 98 98 97 Oxygen Delivery Method Room Air Room Air MDM MDM MDM Narrative Medical decision making narrative: 64-year-old gentleman with past medical history of HTN, HLD, DM2 presents for evaluation of lumbar back pain. Patient does not speak Spanish and therefore official zoo veterinarian was used. Patient states yesterday he was lifting heavy boxes when he shortly later developed lumbar back pain. Lumbar back pain is lower and radiates to bilateral sides. There is nothing to suggest any infectious etiology. There is no neurologic findings to suggest an acute cauda equina syndrome, infectious etiology, or any acute radiculopathy. At this point I do not feel any emergent MRI is needed. Will obtain CT of the lumbar spine to assess for fracture. Differential diagnosis includes but is not limited to myofascial spasm, back strain, fracture. On presentation patient is no acute distress other than hypertension. He supposed to be on amlodipine and losartan however has not been taking this. His hypertension may be secondary to noncompliance with medication versus pain. Will treat his pain with IM Toradol and Valium. Will reassess the blood pressure. CT of the lumbar spine ordered. CT of the lumbar spine without any acute fracture. Patient does have degenerative changes. On reevaluation, patient's pain has improved although is still present. He is able to ambulate without difficulty. I do think his pain is secondary to a lumbar back strain versus spasm. His blood pressure improved with (more content not included)... Normal [facility] Spine Lumbar without Contras ton 04-21-2025 Spine Lumbar without Contrast [facility] [address] [place], [place] [address] Spine Lumbar without Contrast MR#: [id number] Acct: [id number] Name: MARIYA MATHEWS Rep #: [id number] : 1960 M 64 From: Magno Markham MD PCP: Care Physician,No Primary Status: REG ER Study: Spine Lumbar without Contrast Date of Exam: Exam# [id number] Ordering Dr: Barrera Fermin DO EXAM: CT Lumbar Spine Without Intravenous Contrast CLINICAL INDICATION: BACK PAIN TECHNIQUE: Axial computed tomography images of the lumbar spine without intravenous contrast. This CT exam was performed using one or more of the following dose reduction techniques: automated exposure control, adjustment of the mA and/or kV according to patient size, and/or use of iterative reconstruction technique. COMPARISON: No relevant prior studies available. FINDINGS: VERTEBRAE: Mild facet arthropathy of L3-S1. Mild endplate degenerative changes of L 1 to L5. Anterior spurring of T11-L4. No acute fracture. DISCS/SPINAL CANAL/NEURAL FORAMINA: See above. SOFT TISSUES: Unremarkable. CT/Spine Lumbar without Contrast IMPRESSION: 1. No acute fracture. 2. Degenerative changes as above. Reading Location: [facility] CC: Dr. Everardo Fermin, DO; No Primary Care Physician Director Of Accounts Receivable: Signed Normal [facility] Basic Metabolic Profile (BMP )on 11-04-2024 BUN Normal 7-18 [facility] Comment on above: Result Comment: Canc elled via OM: Order cancelled - Patient discharged Performed By: #### L 100.0100, L500.2500 ####[facility] [address] [facility] [address] BUN/CRE Normal 10-20 [facility] Comment on above: Result Comment: Canc elled via OM: Order cancelled - Patient discharged Performed By: #### L 100.0100, L500.2500 ####[facility] [address] [place], [address] CA,Total Normal 8.5-10.1 [facility] Comment on above: Result Comment: Canc elled via OM: Order cancelled - Patient discharged Performed By: #### L 100.0100, L500.2500 ####[facility] [address] [place], [address] CL Normal 98-107 [facility] Comment on above: Result Comment: Canc elled via OM: Order cancelled - Patient discharged Performed By: #### L 100.0100, L500.2500 ####[facility] [address] [place], [address] CO2 Normal 21.0-32.0 [facility] Comment on above: Result Comment: Canc elled via OM: Order cancelled - Patient discharged Performed By: #### L 100.0100, L500.2500 ####[facility] [address] [place], [address] CREAT,SERUM Normal 0.70-1.30 [facility] Comment on above: Result Comment: Canc elled via OM: Order cancelled - Patient discharged Performed By: #### L 100.0100, L500.2500 ####[facility] [address] [place], [address] EST GFR Normal >60 [facility] Comment on above: Result Comment: Canc elled via OM: Order cancelled - Patient discharged Performed By: #### L 100.0100, L500.2500 ####[facility] [address] [place], [address] EST GFR - AA Normal >60 [facility] Comment on above: Result Comment: Canc elled via OM: Order cancelled - Patient discharged Performed By: #### L 100.0100, L500.2500 ####[facility] [address] [place], [address] GAP Normal 5-15 [facility] Comment on above: Result Comment: Canc elled via OM: Order cancelled - Patient discharged Performed By: #### L 100.0100, L500.2500 ####[facility] [address] [place], [address] GLU Normal 74-106 [facility] Comment on above: Result Comment: Canc elled via OM: Order cancelled - Patient discharged Performed By: #### L 100.0100, L500.2500 ####[facility] [address] [place], [address] Potassium Normal 3.5-5.1 [facility] Comment on above: Result Comment: Canc elled via OM: Order cancelled - Patient discharged Performed By: #### L 100.0100, L500.2500 ####[facility] [address] [place], [address] Basic Metabolic Profile (BMP) Normal 136-145 [facility] Comment on above: Result Comment: Canc elled via OM: Order cancelled - Patient discharged Performed By: #### L 100.0100, L500.2500 ####[facility] [address] [place], [address] CBC W/Diff, Automatedon 01-2 Absolute Neut Normal 2.0-7.7 [facility] Comment on above: Result Comment: Canc elled via OM: Order cancelled - Patient discharged Performed By: #### L 100.0100, L500.2500 ####[facility] [address] [place], [address] HCT Normal 40-54 [facility] Comment on above: Result Comment: Canc elled via OM: Order cancelled - Patient discharged Performed By: #### L 100.0100, L500.2500 ####[facility] [address] [place], [address] HGB Normal 13.0-16.5 [facility] Comment on above: Result Comment: Canc elled via OM: Order cancelled - Patient discharged Performed By: #### L 100.0100, L500.2500 ####[facility] [address] [place], [address] MCH Normal 27.0-32.0 [facility] Comment on above: Result Comment: Canc elled via OM: Order cancelled - Patient discharged Performed By: #### L 100.0100, L500.2500 ####[facility] [address] [place], [address] MCHC Normal 32-36 [facility] Comment on above: Result Comment: Canc elled via OM: Order cancelled - Patient discharged Performed By: #### L 100.0100, L500.2500 ####[facility] [address] [place], [address] MCV Normal 80-94 [facility] Comment on above: Result Comment: Canc elled via OM: Order cancelled - Patient discharged Performed By: #### L 100.0100, L500.2500 ####[facility] [address] [place], [address] NEUT% Normal 47-70 [facility] Comment on above: Result Comment: Canc elled via OM: Order cancelled - Patient discharged Performed By: #### L 100.0100, L500.2500 ####[facility] [address] [place], [address] PLT Normal 150-450 [facility] Comment on above: Result Comment: Canc elled via OM: Order cancelled - Patient discharged Performed By: #### L 100.0100, L500.2500 ####[facility] [address] [place], [address] RBC Normal 4.6-6.2 [facility] Comment on above: Result Comment: Canc elled via OM: Order cancelled - Patient discharged Performed By: #### L 100.0100, L500.2500 ####[facility] [address] [place], [address] RDW CV Normal 11.6-14.6 [facility] Comment on above: Result Comment: Canc elled via OM: Order cancelled - Patient discharged Performed By: #### L 100.0100, L500.2500 ####[facility] [address] [place], [address] RDW SD Normal 35.1-43.9 [facility] Comment on above: Result Comment: Canc elled via OM: Order cancelled - Patient discharged Performed By: #### L 100.0100, L500.2500 ####[facility] [address] [place], [address] WBC Normal 4.4-11.0 [facility] Comment on above: Result Comment: Canc elled via OM: Order cancelled - Patient discharged Performed By: #### L 100.0100, L500.2500 ####[facility] [address] [place], [address] Basic Metabolic Profile (BMP )on 11-03-2024 BUN/CRE 15.5 RATIO Normal 10-20 [facility] Comment on above: Performed By: #### L 500.2500, L100.0100 #### [facility] [address] [place], [address] CA,Total 8.9 mg/dL Normal 8.5-10.1 [facility] Comment on above: Performed By: #### L 500.2500, L100.0100 #### [facility] [address] [place], [address] Chloride [Moles/Vol] 105 mmol/L Normal 98-107 [facility] Comment on above: Performed By: #### L 500.2500, L100.0100 #### [facility] [address] [place], [address] CO2 [Moles/Vol] 23.0 mmol/L Normal 21.0-32.0 [facility] Comment on above: Performed By: #### L 500.2500, L100.0100 #### [facility] [address] [place], [address] Creatinine [Mass/Vol] 1.16 mg/dL Normal 0.70-1.30 [facility] Comment on above: Result Comment: The validity of the calculated GFR GFRAA in patients over 70 years has not been determined. Clinical correlation is essential. Performed By: #### L 500.2500, L100.0100 #### [facility] [address] [place], [address] ECRCL 63.06 ml/min Normal [facility] Comment on above: Performed By: #### L 500.2500, L100.0100 #### [facility] [address] [place], [address] EST GFR - AA 82 mL/min Normal >60 [facility] Comment on above: Result Comment: Afri can Andorran GFR Calc Performed By: #### L 500.2500, L100.0100 #### [facility] [address] [place], [address] GAP 9 Normal 5-15 [facility] Comment on above: Performed By: #### L 500.2500, L100.0100 #### [facility] [address] [place], [address] GFR/1.73 sq M.predicted among non-blacks MDRD (S/P/Bld) [Vol rate/Area] 67 mL/min/{1.73_m2} Normal >60 [facility] Comment on above: Result Comment: Non- GFR Calc Performed By: #### L 500.2500, L100.0100 #### [facility] [address] [place], [address] Glucose [Mass/Vol] 304 mg/dL High 74-106 [facility] Comment on above: Result Comment: Gluc ose result greater than or equal to 200 mg/dL suggests DIABETES MELLITUS per A.D.A. criteria. Performed By: #### L 500.2500, L100.0100 #### [facility] [address] [place], [address] Potassium [Moles/Vol] 3.7 mmol/L Normal 3.5-5.1 [facility] Comment on above: Performed By: #### L 500.2500, L100.0100 #### [facility] [address] [place], [address] Sodium [Moles/Vol] 137 mmol/L Normal 136-145 [facility] Comment on above: Performed By: #### L 500.2500, L100.0100 #### [facility] [address] [place], [address] Urea nitrogen [Mass/Vol] 18 mg/dL Normal 7-18 [facility] Comment on above: Performed By: #### L 500.2500, L100.0100 #### [facility] [address] [place], [address] Bedside Glucoseon 11-03-2024 FINGERSTICK GLU 293 mg/dL High 74-106 [facility] Comment on above: Result Comment: KRISTI SOTO OF PATIENT CARE PER NURSING PROTOCOL Performed By: #### L 501.0100 #### [facility] [address] [place], [address] CBC W/Diff, Automatedon 10-13 Absolute Lymph 2.27 X10 3/uL Normal 0.83-4.51 [facility] Comment on above: Performed By: #### L 500.2500, L100.0100 #### [facility] [address] [place], [address] Absolute Neut 6.0 X10 3/uL Normal 2.0-7.7 [facility] Comment on above: Performed By: #### L 500.2500, L100.0100 #### [facility] [address] [place], [address] Basophils/100 WBC (Bld) 0.1 % Normal 0-1 [facility] Comment on above: Performed By: #### L 500.2500, L100.0100 #### [facility] [address] [place], [address] Eosinophils/100 WBC (Bld) 0.7 % Normal 0-5 [facility] Comment on above: Performed By: #### L 500.2500, L100.0100 #### [facility] [address] [place], [address] Erythrocyte distribution width (RBC) [Ratio] 11.2 % Low 11.6-14.6 [facility] Comment on above: Performed By: #### L 500.2500, L100.0100 #### [facility] [address] [place], [address] Hematocrit (Bld) [Volume fraction] 40.1 % Normal 40-54 [facility] Comment on above: Performed By: #### L 500.2500, L100.0100 #### [facility] [address] [place], [address] Hemoglobin (Bld) [Mass/Vol] 13.2 g/dL Normal 13.0-16.5 [facility] Comment on above: Performed By: #### L 500.2500, L100.0100 #### [facility] [address] [place], [address] IG% 0.200 Normal 0.0-0.9 [facility] [facility] Comment on above: Result Comment: IG% - Immature Granulocytes (promyelocytes, myelocytes and metamyelocytes) > 1% indicates that a LEFT SHIFT is Present. Performed By: #### L 500.2500, L100.0100 #### [facility] [address] [place], [address] Lymphocytes/100 WBC (Bld) 25.6 % Normal 19-41 [facility] Comment on above: Performed By: #### L 500.2500, L100.0100 #### [facility] [address] [place], [address] MCH (RBC) [Entitic mass] 27.3 pg Normal 27.0-32.0 [facility] Comment on above: Performed By: #### L 500.2500, L100.0100 #### [facility] [address] [place], [address] MCHC (RBC) [Mass/Vol] 32.9 g/dL Normal 32-36 [facility] Comment on above: Performed By: #### L 500.2500, L100.0100 #### [facility] [address] [place], [address] MCV (RBC) [Entitic vol] 83.0 fL Normal 80-94 [facility] Comment on above: Performed By: #### L 500.2500, L100.0100 #### [facility] [address] [place], [address] Monocytes/100 WBC (Bld) 5.3 % Normal 0-10 [facility] Comment on above: Performed By: #### L 500.2500, L100.0100 #### [facility] [address] [place], [address] Neutrophils/100 WBC (Bld) 68.1 % Normal 47-70 [facility] Comment on above: Performed By: #### L 500.2500, L100.0100 #### [facility] [address] [place], [address] Nucleated RBC (Bld) [#/Vol] 0 10*3/uL Normal 0-5 [facility] Comment on above: Performed By: #### L 500.2500, L100.0100 #### [facility] [address] [place], [address] Platelet mean volume (Bld) [Entitic vol] 10.9 fL Normal 6.2-12.0 [facility] Comment on above: Performed By: #### L 500.2500, L100.0100 #### [facility] [address] [place], [address] Platelets (Bld) [#/Vol] 189 10*3/uL Normal 150-450 [facility] Comment on above: Performed By: #### L 500.2500, L100.0100 #### [facility] [address] [place], [address] RBC (Bld) [#/Vol] 4.83 10*6/uL Normal 4.6-6.2 [facility] Comment on above: Performed By: #### L 500.2500, L100.0100 #### [facility] [address] [place], [address] RDW SD 34.2 fl Low 35.1-43.9 [facility] Comment on above: Performed By: #### L 500.2500, L100.0100 #### [facility] [address] [place], [address] WBC (Bld) [#/Vol] 8.9 10*3/uL Normal 4.4-11.0 [facility] Comment on above: Performed By: #### L 500.2500, L100.0100 #### [facility] [address] [place], [address] Lipaseon 11-03-2024 Lipase [Catalytic activity/Vol] 74 U/L Normal 13-75 [facility] Comment on above: Result Comment: Mckinley chung note: LIPASE revised reference range effective 23. New Lipase methodology. Expected to produce lower values than the previous assay method. NEW Reference Range: 13 - 75 U/L Performed By: #### L 501.2450 ####[facility] [address] [place], [address] Basic Metabolic Profile (BMP )on 11-02-2024 BUN/CRE 16.8 RATIO Normal 10-20 [facility] Comment on above: Performed By: #### L 500.2500 ####[facility] [address] [place], [address] CA,Total 8.8 mg/dL Normal 8.5-10.1 [facility] Comment on above: Performed By: #### L 500.2500 ####[facility] [address] [place], [address] Chloride [Moles/Vol] 109 mmol/L High 98-107 [facility] Comment on above: Performed By: #### L 500.2500 ####[facility] [address] [place], [address] CO2 [Moles/Vol] 26.0 mmol/L Normal 21.0-32.0 [facility] Comment on above: Performed By: #### L 500.2500 ####[facility] [address] [place], [address] Creatinine [Mass/Vol] 1.19 mg/dL Normal 0.70-1.30 [facility] Comment on above: Result Comment: The validity of the calculated GFR GFRAA in patients over 70 years has not been determined. Clinical correlation is essential. Performed By: #### L 500.2500 ####[facility] [address] [place], [address] ECRCL 61.47 ml/min Normal [facility] Comment on above: Performed By: #### L 500.2500 ####[facility] [address] [place], [address] EST GFR - AA 79 mL/min Normal >60 [facility] Comment on above: Result Comment: Afri can Andorran GFR Calc Performed By: #### L 500.2500 ####[facility] [address] [place], [address] GAP 7 Normal 5-15 [facility] Comment on above: Performed By: #### L 500.2500 ####[facility] [address] [place], [address] GFR/1.73 sq M.predicted among non-blacks MDRD (S/P/Bld) [Vol rate/Area] 65 mL/min/{1.73_m2} Normal >60 [facility] Comment on above: Result Comment: Non- GFR Calc Performed By: #### L 500.2500 ####[facility] [address] [place], [address] Glucose [Mass/Vol] 244 mg/dL High 74-106 [facility] Comment on above: Result Comment: Gluc ose result greater than or equal to 200 mg/dL suggests DIABETES MELLITUS per A.D.A. criteria. Performed By: #### L 500.2500 ####[facility] [address] [place], [address] Potassium [Moles/Vol] 4.0 mmol/L Normal 3.5-5.1 [facility] Comment on above: Performed By: #### L 500.2500 ####[facility] [address] [place], [address] Sodium [Moles/Vol] 142 mmol/L Normal 136-145 [facility] Comment on above: Performed By: #### L 500.2500 ####[facility] [address] [place], [address] Urea nitrogen [Mass/Vol] 20 mg/dL High 7-18 [facility] Comment on above: Performed By: #### L 500.2500 ####[facility] [address] [place], [address] BUN Normal 7-18 [facility] Comment on above: Order Comment: Call MD with results STAT Result Comment: Canc elled via OM: MD Ordered Performed By: #### L 501.0100 #### [facility] [address] [place], [address] BUN/CRE Normal 10-20 [facility] Comment on above: Order Comment: Call MD with results STAT Result Comment: Canc elled via OM: MD Ordered Performed By: #### L 501.0100 #### [facility] [address] [place], [address] CA,Total Normal 8.5-10.1 [facility] Comment on above: Order Comment: Call MD with results STAT Result Comment: Canc elled via OM: MD Ordered Performed By: #### L 501.0100 #### [facility] [address] [place], [address] CL Normal 98-107 [facility] Comment on above: Order Comment: Call MD with results STAT Result Comment: Canc elled via OM: MD Ordered Performed By: #### L 501.0100 #### [facility] [address] [place], [address] CO2 Normal 21.0-32.0 [facility] Comment on above: Order Comment: Call MD with results STAT Result Comment: Canc elled via OM: MD Ordered Performed By: #### L 501.0100 #### [facility] [address] [place], [address] CREAT,SERUM Normal 0.70-1.30 [facility] Comment on above: Order Comment: Call MD with results STAT Result Comment: Canc elled via OM: MD Ordered Performed By: #### L 501.0100 #### [facility] [address] [place], [address] EST GFR Normal >60 [facility] Comment on above: Order Comment: Call MD with results STAT Result Comment: Canc elled via OM: MD Ordered Performed By: #### L 501.0100 #### [facility] [address] [place], [address] EST GFR - AA Normal >60 [facility] Comment on above: Order Comment: Call MD with results STAT Result Comment: Canc elled via OM: MD Ordered Performed By: #### L 501.0100 #### [facility] [address] [place], [address] GAP Normal 5-15 [facility] Comment on above: Order Comment: Call MD with results STAT Result Comment: Canc elled via OM: MD Ordered Performed By: #### L 501.0100 #### [facility] [address] [place], [address] GLU Normal 74-106 [facility] Comment on above: Order Comment: Call MD with results STAT Result Comment: Canc elled via OM: MD Ordered Performed By: #### L 501.0100 #### [facility] [address] [place], [address] Potassium Normal 3.5-5.1 [facility] Comment on above: Order Comment: Call MD with results STAT Result Comment: Canc elled via OM: MD Ordered Performed By: #### L 501.0100 #### [facility] [address] [place], [address] Basic Metabolic Profile (BMP) Normal 136-145 [facility] Comment on above: Order Comment: Call MD with results STAT Result Comment: Canc elled via OM: MD Ordered Performed By: #### L 501.0100 #### [facility] [address] [place], [address] Bedside Glucoseon 11-02-2024 FINGERSTICK GLU 171 mg/dL High 74-106 [facility] Comment on above: Result Comment: KRISTI GEMENT OF PATIENT CARE PER NURSING PROTOCOL Performed By: #### L 501.0100 #### [facility] [address] [place], [address] FINGERSTICK GLU 195 mg/dL High 74-106 [facility] Comment on above: Result Comment: KRISTI GEMENT OF PATIENT CARE PER NURSING PROTOCOL Performed By: #### L 501.0100 #### [facility] [address] [place], [address] FINGERSTICK GLU 237 mg/dL High 74-106 [facility] Comment on above: Result Comment: KRISTI GEMENT OF PATIENT CARE PER NURSING PROTOCOL Performed By: #### L 501.080 ####[facility] [address] [place], [address] FINGERSTICK GLU 241 mg/dL High 74-106 [facility] Comment on above: Result Comment: KRISTI GEMENT OF PATIENT CARE PER NURSING PROTOCOL Performed By: #### L 501.080 ####[facility] [address] [place], [address] CBC W/Diff, Automatedon 10-13 Absolute Lymph 2.12 X10 3/uL Normal 0.83-4.51 [facility] Comment on above: Performed By: #### L 501.0100 #### [facility] [address] [place], [address] Absolute Neut 8.9 X10 3/uL High 2.0-7.7 [facility] Comment on above: Performed By: #### L 501.0100 #### [facility] [address] [place], [address] Basophils/100 WBC (Bld) 0.3 % Normal 0-1 [facility] Comment on above: Performed By: #### L 501.0100 #### [facility] [address] [place], [address] Eosinophils/100 WBC (Bld) 0.6 % Normal 0-5 [facility] Comment on above: Performed By: #### L 501.0100 #### [facility] [address] [place], [address] Erythrocyte distribution width (RBC) [Ratio] 11.3 % Low 11.6-14.6 [facility] Comment on above: Performed By: #### L 501.0100 #### [facility] [address] [place], [address] Hematocrit (Bld) [Volume fraction] 39.4 % Low 40-54 [facility] Comment on above: Performed By: #### L 501.0100 #### [facility] [address] [place], [address] Hemoglobin (Bld) [Mass/Vol] 13.2 g/dL Normal 13.0-16.5 [facility] Comment on above: Performed By: #### L 501.0100 #### [facility] [address] [place], [address] IG% 0.300 Normal 0.0-0.9 [facility] Comment on above: Result Comment: IG% - Immature Granulocytes (promyelocytes, myelocytes and metamyelocytes) > 1% indicates that a LEFT SHIFT is Present. Performed By: #### L 501.0100 #### [facility] [address] [place], [address] Lymphocytes/100 WBC (Bld) 18.2 % Low 19-41 [facility] Comment on above: Performed By: #### L 501.0100 #### [facility] [address] [place], [address] MCH (RBC) [Entitic mass] 28.1 pg Normal 27.0-32.0 [facility] Comment on above: Performed By: #### L 501.0100 #### [facility] [address] [place], [address] MCHC (RBC) [Mass/Vol] 33.5 g/dL Normal 32-36 [facility] Comment on above: Performed By: #### L 501.0100 #### [facility] [address] [place], [address] MCV (RBC) [Entitic vol] 84.0 fL Normal 80-94 [facility] Comment on above: Performed By: #### L 501.0100 #### [facility] [address] [place], [address] Monocytes/100 WBC (Bld) 4.4 % Normal 0-10 [facility] Comment on above: Performed By: #### L 501.0100 #### [facility] [address] [place], [address] Neutrophils/100 WBC (Bld) 76.2 % High 47-70 [facility] Comment on above: Performed By: #### L 501.0100 #### [facility] [address] [place], [address] Nucleated RBC (Bld) [#/Vol] 0 10*3/uL Normal 0-5 [facility] Comment on above: Performed By: #### L 501.0100 #### [facility] [address] [place], [address] Platelet mean volume (Bld) [Entitic vol] 11.2 fL Normal 6.2-12.0 [facility] Comment on above: Performed By: #### L 501.0100 #### [facility] [address] [place], [address] Platelets (Bld) [#/Vol] 198 10*3/uL Normal 150-450 [facility] Comment on above: Performed By: #### L 501.0100 #### [facility] [address] [place], [address] RBC (Bld) [#/Vol] 4.69 10*6/uL Normal 4.6-6.2 [facility] Comment on above: Performed By: #### L 501.0100 #### [facility] [address] [place], [address] RDW SD 34.6 fl Low 35.1-43.9 [facility] Comment on above: Performed By: #### L 501.0100 #### [facility] [address] [place], [address] WBC (Bld) [#/Vol] 11.7 10*3/uL High 4.4-11.0 [facility] Comment on above: Performed By: #### L 501.0100 #### [facility] [address] [place], [address] Hemoglobin A1con 11-02-2024 HbA1c (Bld) [Mass fraction] 10.3 % High 3.8-5.6 [facility] Comment on above: Result Comment: Norm al < 5.7 % Prediabetic 5.7 - 6.4 % Diabetic >or= 6.5 % Please note range changes. Performed By: #### L 501.0100 #### [facility] [address] [place], [address] T4 Free Directon 11-02-2024 T4 FREE DIRECT 0.99 ng/dL Normal 0.76-1.46 [facility] Comment on above: Performed By: #### L 501.0100 #### [facility] [address] [place], [address] Thyroid Stim Hormone (TSH)on 11-02-2024 TSH 0.501 uIU/mL Normal 0.358-3.740 [facility] Comment on above: Performed By: #### L 501.0100 #### [facility] [address] [place], [address] Acetone Serumon 11-01-2024 ACETONE SERUM SMALL Abnormal NEG [facility] Comment on above: Order Comment: Comme nts: If not done in the EDComments: Add to ER Lab draw Performed By: #### L 501.6900, L501.7300 ####[facility] [address] [place], [address] Basic Metabolic Profile (BMP )on 11-01-2024 BUN Normal 7-18 [facility] Comment on above: Order Comment: Call MD with results STAT Result Comment: Roosevelt murray via OM: Ordered Performed By: #### L 500.2500 ####[facility] [address] [place], [address] Performed By: #### L 500.2500 #### [facility] [address] [place], [address] BUN/CRE Normal 10-20 [facility] Comment on above: Order Comment: Call MD with results STAT Result Comment: Canc elled via OM: MD Ordered Performed By: #### L 500.2500 ####[facility] [address] [place], [address] Performed By: #### L 500.2500 #### [facility] [address] [place], [address] CA,Total Normal 8.5-10.1 [facility] Comment on above: Order Comment: Call MD with results STAT Result Comment: Canc elled via OM: MD Ordered Performed By: #### L 500.2500 ####[facility] [address] [place], [address] Performed By: #### L 500.2500 #### [facility] [address] [place], [address] CL Normal 98-107 [facility] Comment on above: Order Comment: Call MD with results STAT Result Comment: Canc elled via OM: MD Ordered Performed By: #### L 500.2500 ####[facility] [address] [place], [address] Performed By: #### L 500.2500 #### [facility] [address] [place], [address] CO2 Normal 21.0-32.0 [facility] Comment on above: Order Comment: Call MD with results STAT Result Comment: Canc elled via OM: MD Ordered Performed By: #### L 500.2500 ####[facility] [address] [place], [address] Performed By: #### L 500.2500 #### [facility] [address] [place], [address] CREAT,SERUM Normal 0.70-1.30 [facility] Comment on above: Order Comment: Call MD with results STAT Result Comment: Canc elled via OM: MD Ordered Performed By: #### L 500.2500 ####[facility] [address] [place], [address] Performed By: #### L 500.2500 #### [facility] [address] [place], [address] EST GFR Normal >60 [facility] Comment on above: Order Comment: Call MD with results STAT Result Comment: Canc elled via OM: MD Ordered Performed By: #### L 500.2500 ####[facility] [address] [place], [address] Performed By: #### L 500.2500 #### [facility] [address] [place], [address] EST GFR - AA Normal >60 [facility] Comment on above: Order Comment: Call MD with results STAT Result Comment: Canc elled via OM: MD Ordered Performed By: #### L 500.2500 ####[facility] [address] [place], [address] Performed By: #### L 500.2500 #### [facility] [address] [place], [address] GAP Normal 5-15 [facility] Comment on above: Order Comment: Call MD with results STAT Result Comment: Canc elled via OM: MD Ordered Performed By: #### L 500.2500 ####[facility] [address] [place], [address] Performed By: #### L 500.2500 #### [facility] [address] [place], [address] GLU Normal 74-106 [facility] Comment on above: Order Comment: Call MD with results STAT Result Comment: Canc elled via OM: MD Ordered Performed By: #### L 500.2500 ####[facility] [address] [place], [address] Performed By: #### L 500.2500 #### [facility] [address] [place], [address] Potassium Normal 3.5-5.1 [facility] Comment on above: Order Comment: Call with results STAT Result Comment: Roosevelt murray via OM: MD Ordered Performed By: #### L 500.2500 ####[facility] [address] [place], [address] Performed By: #### L 500.2500 #### [facility] [address] [place], [address] Basic Metabolic Profile (BMP) Normal 136-145 [facility] Comment on above: Order Comment: Call with results STAT Result Comment: Roosevelt murray via OM: MD Ordered Performed By: #### L 500.2500 ####[facility] [address] [place], [address] Performed By: #### L 500.2500 #### [facility] Laboratory [address] [place], [address] BUN/CRE 17.8 RATIO Normal 10-20 [facility] Comment on above: Order Comment: Call with results STAT Performed By: #### L 500.2500 ####[facility] [address] [place], [address] CA,Total 9.1 mg/dL Normal 8.5-10.1 [facility] Comment on above: Order Comment: Call with results STAT Performed By: #### L 500.2500 ####[facility] [address] [place], [address] Chloride [Moles/Vol] 114 mmol/L High 98-107 [facility] Comment on above: Order Comment: Call with results STAT Performed By: #### L 500.2500 ####[facility] [address] [place], [address] CO2 [Moles/Vol] 24.0 mmol/L Normal 21.0-32.0 [facility] Comment on above: Order Comment: Call MD with results STAT Performed By: #### L 500.2500 ####[facility] [address] [place], [address] Creatinine [Mass/Vol] 1.69 mg/dL High 0.70-1.30 [facility] Comment on above: Order Comment: Call MD with results STAT Result Comment: The validity of the calculated GFR GFRAA in patients over 70 years has not been determined. Clinical correlation is essential. Performed By: #### L 500.2500 ####[facility] [address] [place], [address] ECRCL 43.28 ml/min Normal [facility] Comment on above: Order Comment: Call MD with results STAT Performed By: #### L 500.2500 ####[facility] [address] [place], [address] EST GFR - AA 53 mL/min Low >60 [facility] Comment on above: Order Comment: Call MD with results STAT Result Comment: Afri can Andorran GFR Calc Performed By: #### L 500.2500 ####[facility] [address] [place], [address] GAP 7 Normal 5-15 [facility] Comment on above: Order Comment: Call MD with results STAT Performed By: #### L 500.2500 ####[facility] [address] [place], [address] GFR/1.73 sq M.predicted among non-blacks MDRD (S/P/Bld) [Vol rate/Area] 44 mL/min/{1.73_m2} Low >60 [facility] Comment on above: Order Comment: Call MD with results STAT Result Comment: Non- GFR Calc Performed By: #### L 500.2500 ####[facility] [address] [place], [address] Glucose [Mass/Vol] 339 mg/dL High 74-106 [facility] Comment on above: Order Comment: Call MD with results STAT Result Comment: Gluc ose result greater than or equal to 200 mg/dL suggests DIABETES MELLITUS per A.D.A. criteria. Performed By: #### L 500.2500 ####[facility] [address] [place], [address] Potassium [Moles/Vol] 4.0 mmol/L Normal 3.5-5.1 [facility] Comment on above: Order Comment: Call MD with results STAT Performed By: #### L 500.2500 ####[facility] [address] [place], [address] Sodium [Moles/Vol] 145 mmol/L Normal 136-145 [facility] Comment on above: Order Comment: Call MD with results STAT Performed By: #### L 500.2500 ####[facility] [address] [place], [address] Urea nitrogen [Mass/Vol] 30 mg/dL High 7-18 [facility] Comment on above: Order Comment: Call MD with results STAT Performed By: #### L 500.2500 ####[facility] [address] [place], [address] BUN/CRE 18.8 RATIO Normal 10-20 [facility] Comment on above: Performed By: #### L 500.2500, L501.5200 ####[facility] [address] [place], [address] CA,Total 9.5 mg/dL Normal 8.5-10.1 [facility] Comment on above: Performed By: #### L 500.2500, L501.5200 ####[facility] [address] [place], [address] Chloride [Moles/Vol] 106 mmol/L Normal 98-107 [facility] Comment on above: Performed By: #### L 500.2500, L501.5200 ####[facility] [address] [place], [address] CO2 [Moles/Vol] 22.0 mmol/L Normal 21.0-32.0 [facility] Comment on above: Performed By: #### L 500.2500, L501.5200 ####[facility] [address] [place], [address] Creatinine [Mass/Vol] 1.76 mg/dL High 0.70-1.30 [facility] Comment on above: Result Comment: The validity of the calculated GFR GFRAA in patients over 70 years has not been determined. Clinical correlation is essential. Performed By: #### L 500.2500, L501.5200 ####[facility] [address] [place], [address] ECRCL 41.56 ml/min Normal [facility] Comment on above: Performed By: #### L 500.2500, L501.5200 ####[facility] [address] [place], [address] EST GFR - AA 50 mL/min Low >60 [facility] Comment on above: Result Comment: Afri can Andorran GFR Calc Performed By: #### L 500.2500, L501.5200 ####[facility] [address] [place], [address] GAP 10 Normal 5-15 [facility] Comment on above: Performed By: #### L 500.2500, L501.5200 ####[facility] [address] [place], [address] GFR/1.73 sq M.predicted among non-blacks MDRD (S/P/Bld) [Vol rate/Area] 42 mL/min/{1.73_m2} Low >60 [facility] Comment on above: Result Comment: Non- GFR Calc Performed By: #### L 500.2500, L501.5200 ####[facility] [address] [place], [address] Glucose [Mass/Vol] 553 mg/dL Invalid Interpretation Code 74-106 [facility] Comment on above: Result Comment: Crit ical Result(s) Called at: 07:34:29 11/01/2024 by: Veronica Corrales to raman Buenrostro. Results read back by same. Glucose result greater than or equal to 200 mg/dL suggests DIABETES MELLITUS per A.D.A. criteria. Performed By: #### L 500.2500, L501.5200 ####[facility] [address] [place], [address] Potassium [Moles/Vol] 5.1 mmol/L Normal 3.5-5.1 [facility] Comment on above: Performed By: #### L 500.2500, L501.5200 ####[facility] [address] [place], [address] Sodium [Moles/Vol] 138 mmol/L Normal 136-145 [facility] Comment on above: Performed By: #### L 500.2500, L501.5200 ####[facility] [address] [place], [address] Urea nitrogen [Mass/Vol] 33 mg/dL High 7-18 [facility] Comment on above: Performed By: #### L 500.2500, L501.5200 ####[facility] [address] [place], [address] Bedside Glucoseon 11-01-2024 FINGERSTICK GLU 269 mg/dL High 74-106 [facility] Comment on above: Result Comment: KRISTI CHARLES OF PATIENT CARE PER NURSING PROTOCOL Performed By: #### L 501.0100 #### [facility] Laboratory [address] [place], [address] FINGERSTICK GLU 439 mg/dL High [address] [place] [address] Comment on above: Result Comment: KRISTI GEMENT OF PATIENT CARE PER NURSING PROTOCOL Performed By: #### L 501.080 ####[facility] [address] [place], [address] FINGERSTICK GLU 239 mg/dL High [address] [place] [address] Comment on above: Result Comment: KRISTI GEMENT OF PATIENT CARE PER NURSING PROTOCOL Performed By: #### L 501.0100 #### [facility] [address] [place], [address] FINGERSTICK GLU 301 mg/dL High [address] [place] [address] Comment on above: Result Comment: KRISTI GEMENT OF PATIENT CARE PER NURSING PROTOCOL Performed By: #### L 501.080 ####[facility] [address] [place], [address] FINGERSTICK GLU 316 mg/dL High [address] [place] [address] Comment on above: Result Comment: KRISTI GEMENT OF PATIENT CARE PER NURSING PROTOCOL Performed By: #### L 501.080 #### [facility] [address] [place], [address] FINGERSTICK GLU 366 mg/dL High [address] [place] [address] Comment on above: Result Comment: KRISTI GEMENT OF PATIENT CARE PER NURSING PROTOCOL Performed By: #### L 501.080 ####[facility] [address] [place], [address] FINGERSTICK GLU 471 mg/dL Invalid Interpretation Code [address] [place] [address] Comment on above: Result Comment: Dr Faye casas Followed MANAGEMENT OF PATIENT CARE PER NURSING PROTOCOL Performed By: #### L 501.080 ####[facility] [address] [place], [address] FINGERSTICK GLU > 500 Invalid Interpretation Code [address] [place] [address] Comment on above: Result Comment: Dr Faye casas Followed MANAGEMENT OF PATIENT CARE PER NURSING PROTOCOL Performed By: #### L 501.080 ####[facility] [address] [place], [address] M100.677on 11-01-2024 M100.677 Negative Normal [facility] Comment on above: Performed By: #### M 100.677 ####[facility] [address] [place], [address] Magnesiumon 11-01-2024 Magnesium [Mass/Vol] 3.2 mg/dL High 1.6-2.6 [facility] Comment on above: Performed By: #### L 500.2500, L501.5200 ####[facility] [address] [place], [address] Osmolality, Serumon 11-01-19 25 OSMOLALITY,SER 352 mOsm/KG High 280-301 [facility] Comment on above: Order Comment: Comme nts: If not done in the EDComments: Add to ER Lab draw Performed By: #### L 501.6900, L501.7300 ####[facility] [address] [place], [address] 12 Lead EKGon 10-31-2024 12 Lead EKG [facility] Cardiovascular Services [address] [place] [address] 12 Lead EKG 10/31/242021 MR#: [id number] Acct: [id number] Name: MARIYA MATHEWS Rep #: [id number] : 1960 63 From: Shabana Sorenson MD Attending Dr: Dr. Fernando Hatfield MD Status: DIS IN Ordering Dr: Justice Cabrera DO Date: 10/31/24 Location: NV3 Sex: M AA Admitted: 10/31/24 Test Reason : DYSRHYTHMIA Blood Pressure : */* mmHG Vent. Rate : 92 BPM Atrial Rate : 92 BPM P-R Int : 148 ms QRS Dur : 96 ms QT Int : 378 ms P-R-T Axes : 53 7 15 degrees QTcB Int : 467 ms Normal sinus rhythm Moderate voltage criteria for LVH, may be normal variant ( R in aVL , Sokolow-Johnston ) T wave abnormality, consider anterolateral ischemia Prolonged QT Abnormal ECG Confirmed by SANTOSH GEORGE, ANIYAH ([id number]), pictures editor DHAVAL MURGUIA ([id number]) on 11/07/2024 2:21:37 PM Referred By: Confirmed By: ANIYAH SORENSON MD 11/07/24 1421 Date Shabana Sorenson MD CC: Dr. Frenando Hatfield MD; Dr. Justice Cabrera DO; No Primary Care Physician Signed Normal [facility] Abdomen/Pelvis without Conto n 10-31-2024 Abdomen/Pelvis without Cont [facility] Imaging Services [address] [place] [address] Abdomen/Pelvis without Cont MR#: [id number] Acct: [id number] Name: MARIYA MATHEWS Rep #: [id number] : 1960 M 63 From: Danye infante DO PCP: Care Physician,No Primary Status: REG ER Study: Abdomen/Pelvis without Cont Date of Exam: 10/13 Exam# [id number] Ordering Dr: Justice Cabrera DO -[id number] EXAM: CT ABDOMEN AND PELVIS WITHOUT INTRAVENOUS CONTRAST CLINICAL INDICATION: abdominal pain TECHNIQUE: Helically acquired images were obtained of the abdomen and pelvis without intravenous contrast. This CT exam was performed using one or more of the following dose reduction techniques: automated exposure control, adjustment of the mA and/or kV according to patient size, and/or use of iterative reconstruction technique. COMPARISON: No relevant prior studies available. FINDINGS: LOWER THORAX: Likely granuloma in the right lower lobe. Cardiomegaly and coronary artery calcifications. No pericardial effusion. ABDOMEN: LIVER: No significant abnormality. Homogeneous. GALLBLADDER AND BILE DUCTS: No significant abnormality. No calcified gallstones. No gallbladder distention or wall edema. No intra- or extrahepatic biliary ductal dilation. PANCREAS: No significant abnormality. No focal cystic mass. SPLEEN: No significant abnormality. Normal size without focal cystic or solid mass. ADRENALS: No significant abnormality. No nodules. KIDNEYS AND URETERS: No significant abnormality. Normal renal size and position. No hydronephrosis. STOMACH AND BOWEL: Moderate amount of colonic stool retention. No stomach or bowel distention. No focal inflammatory change. PELVIS: APPENDIX: There is a normal appendix in the right lower quadrant. BLADDER: No significant abnormality. REPRODUCTIVE: Normal as visualized. No mass. ABDOMEN and PELVIS: INTRAPERITONEAL SPACE: No significant abnormality. No ascites or other fluid collection. No free air. BONES/JOINTS: Osseous degenerative changes. No suspicious lytic or blastic abnormality. SOFT TISSUES: No significant abnormality. No discrete abdominal or pelvic wall hernia. VASCULATURE: No significant abnormality. Abdominal aorta is non-dilated. LYMPH NODES: No significant abnormality. No enlarged lymph nodes. CT/Abdomen/Pelvis without Cont IMPRESSION: 1. Moderate amount of colonic stool retention. No bowel obstruction. 2. Cardiomegaly and coronary artery calcifications. No pericardial effusion. Electronically Signed: Dayne Berman DO at 21:51 EST , CC: Dr. Justice Cabrera DO; No Primary Care Physician Director Of Accounts Receivable: Signed Normal [facility] Acetone Serumon 10-31-2024 ACETONE SERUM Negative Normal NEG [facility] Comment on above: Performed By: #### L 501.6900 #### [facility] Laboratory [address] [place], [place], [address] Bedside Glucoseon 10-31-2024 FINGERSTICK GLU > 500 Invalid Interpretation Code 86-106 [facility] Comment on above: Result Comment: Dr Faye casas Followed MANAGEMENT OF PATIENT CARE PER NURSING PROTOCOL Performed By: #### L 501.6900 #### [facility] [address] [place], [address] CBC W/Diff, Automatedon 01-2 0-5 Absolute Lymph 1.52 X10 3/uL Normal 0.83-4.51 [facility] Comment on above: Performed By: #### L 501.6900 #### [facility] [address] [place], [address] Absolute Neut 9.1 X10 3/uL High 2.0-7.7 [facility] Comment on above: Performed By: #### L 501.6900 #### [facility] [address] [place], [address] Basophils/100 WBC (Bld) 0.2 % Normal 0-1 [facility] Comment on above: Performed By: #### L 501.6900 #### [facility] [address] [place], [address] Eosinophils/100 WBC (Bld) 0.0 % Normal 0-5 [facility] Comment on above: Performed By: #### L 501.6900 #### [facility] [address] [place], [address] Erythrocyte distribution width (RBC) [Ratio] 11.3 % Low 11.6-14.6 [facility] Comment on above: Performed By: #### L 501.6900 #### [facility] [address] [place], [address] Hematocrit (Bld) [Volume fraction] 45.2 % Normal 40-54 [facility] Comment on above: Performed By: #### L 501.6900 #### [facility] [address] [place], [address] Hemoglobin (Bld) [Mass/Vol] 15.4 g/dL Normal 13.0-16.5 [facility] Comment on above: Performed By: #### L 501.6900 #### [facility] [address] [place], [address] IG% 0.400 Normal 0.0-0.9 [facility] Comment on above: Result Comment: IG% - Immature Granulocytes (promyelocytes, myelocytes and metamyelocytes) > 1% indicates that a LEFT SHIFT is Present. Performed By: #### L 501.6900 #### [facility] [address] [place], [address] Lymphocytes/100 WBC (Bld) 13.7 % Low 19-41 [facility] Comment on above: Performed By: #### L 501.6900 #### [facility] [address] [place], [address] MCH (RBC) [Entitic mass] 28.2 pg Normal 27.0-32.0 [facility] Comment on above: Performed By: #### L 501.6900 #### [facility] [address] [place], [address] MCHC (RBC) [Mass/Vol] 34.1 g/dL Normal 32-36 [facility] Comment on above: Performed By: #### L 501.2830 #### [facility] [address] [place], [address] MCV (RBC) [Entitic vol] 82.6 fL Normal 80-94 [facility] Comment on above: Performed By: #### L 501.8080 #### [facility] [address] [place], [address] Monocytes/100 WBC (Bld) 3.4 % Normal 0-10 [facility] Comment on above: Performed By: #### L 501.0040 #### [facility] [address] [place], [address] Neutrophils/100 WBC (Bld) 82.3 % High 47-70 [facility] Comment on above: Performed By: #### L 501.5920 #### [facility] [address] [place], [address] Nucleated RBC (Bld) [#/Vol] 0 10*3/uL Normal 0-5 [facility] Comment on above: Performed By: #### L 501.6900 #### [facility] [address] [place], [address] Platelet mean volume (Bld) [Entitic vol] 11.7 fL Normal 6.2-12.0 [facility] Comment on above: Performed By: #### L 501.6900 #### [facility] [address] [place], [address] Platelets (Bld) [#/Vol] 255 10*3/uL Normal 150-450 [facility] Comment on above: Performed By: #### L 501.6900 #### [facility] [address] [place], [address] RBC (Bld) [#/Vol] 5.47 10*6/uL Normal 4.6-6.2 [facility] Comment on above: Performed By: #### L 501.6900 #### [facility] [address] [place], [address] RDW SD 33.7 fl Low 35.1-43.9 [facility] Comment on above: Performed By: #### L 501.6900 #### [facility] [address] [place] [place], [address] WBC (Bld) [#/Vol] 11.1 10*3/uL High 4.4-11.0 [facility] Comment on above: Performed By: #### L 501.6900 #### [facility] [address] [place], [address] Chest 1 View (Portable)on Chest 1 View (Portable) [facility] Imaging Services [address] [place] [address] Chest 1 View (Portable) MR#: [id number] Acct: [id number] Name: MARIYA MATHEWS Rep #: [id number] : 1960 M 63 From: Dayne denisnoe PCP: Care Physician,No Primary Status: REG ER Study: Chest 1 View (Portable) Date of Exam: 10/31/24 Exam# [id number] Ordering Dr: Justice Cabrera DO -[id number] EXAM: XR CHEST, 1 VIEW CLINICAL INDICATION: chest pain TECHNIQUE: Frontal view of the chest. COMPARISON: 12/19/2023 FINDINGS: LUNGS AND PLEURAL SPACES: No significant abnormality. No consolidation or edema. No pneumothorax. No effusion. HEART: No significant abnormality. Cardiac silhouette not enlarged. MEDIASTINUM: Central airways and mediastinal contour are unremarkable. BONES/JOINTS: No significant abnormality. No acute fracture. SOFT TISSUES: No significant abnormality. RAD/Chest 1 View (Portable) IMPRESSION: No radiographic evidence of acute cardiopulmonary disease. Electronically Signed: Dayne Berman DO at 20:50 EST , CC: Dr. Justice Cabrera DO; No Primary Care Physician Director Of Accounts Receivable: Signed Normal [facility] Comprehensive Metabolic Prof ilon 10-31-2024 Albumin [Mass/Vol] 4.2 g/dL Normal 3.2-5.0 [facility] Comment on above: Order Comment: 'TROP ' Serial specimen #1, #2 or #3: 1 Performed By: #### L 289.1547 #### [facility] [address] [place], [address] Albumin/Globulin [Mass ratio] 0.8 {ratio} Low 0.9-2.4 [facility] Comment on above: Order Comment: 'TROP ' Serial specimen #1, #2 or #3: 1 Performed By: #### L 120.7650 #### [facility] [address] [place], [address] ALK P 102 U/L Normal 45-117 [facility] Comment on above: Order Comment: 'TROP ' Serial specimen #1, #2 or #3: 1 Performed By: #### L 501.6900 #### [facility] [address] [place], [address] ALT [Catalytic activity/Vol] 25 U/L Normal 16-61 [facility] Comment on above: Order Comment: 'TROP ' Serial specimen #1, #2 or #3: 1 Performed By: #### L 501.6900 #### [facility] [address] [place] [place], [address] AST [Catalytic activity/Vol] 7 U/L Low 15-37 [facility] Comment on above: Order Comment: 'TROP ' Serial specimen #1, #2 or #3: 1 Performed By: #### L 501.6900 #### [facility] [address] [place], [place], [address] Bilirubin [Mass/Vol] 0.60 mg/dL Normal 0.20-1.00 [facility] Comment on above: Order Comment: 'TROP ' Serial specimen #1, #2 or #3: 1 Result Comment: For patients on eltrombopag therapy, use of Dimension [place] TBIL is not recommended. Performed By: #### L 501.6900 #### [facility] [address] [place], [address] BUN/CRE 16.2 RATIO Normal 10-20 [facility] Comment on above: Order Comment: 'TROP ' Serial specimen #1, #2 or #3: 1 Performed By: #### L [id number] #### [facility] [address] [place], [address] CA,Total 10.2 mg/dL High 8.5-10.1 [facility] Comment on above: Order Comment: 'TROP ' Serial specimen #1, #2 or #3: 1 Performed By: #### L [id number] #### [facility] [address] [place], [address] Chloride [Moles/Vol] 94 mmol/L Low 98-107 [facility] Comment on above: Order Comment: 'TROP ' Serial specimen #1, #2 or #3: 1 Performed By: #### L [id number] #### [facility] [address] [place], [address] CO2 [Moles/Vol] 20.0 mmol/L Low 21.0-32.0 [facility] Comment on above: Order Comment: 'TROP ' Serial specimen #1, #2 or #3: 1 Performed By: #### L [id number] #### [facility] [address] [place], [address] Creatinine [Mass/Vol] 2.29 mg/dL High 0.70-1.30 [facility] Comment on above: Order Comment: 'TROP ' Serial specimen #1, #2 or #3: 1 Result Comment: The validity of the calculated GFR GFRAA in patients over 70 years has not been determined. Clinical correlation is essential. Performed By: #### L [id number] #### [facility] [address] [place], [address] ECRCL 31.94 ml/min Normal [facility] Comment on above: Order Comment: 'TROP ' Serial specimen #1, #2 or #3: 1 Performed By: #### L [id number] #### [facility] [address] [place], [address] EST GFR - AA 37 mL/min Low >60 [facility] Comment on above: Order Comment: 'TROP ' Serial specimen #1, #2 or #3: 1 Result Comment: Afri can Andorran GFR Calc Performed By: #### L [id number] #### [facility] [address] [place], [place], [id number] GAP 18 High 5-15 [facility] Comment on above: Order Comment: 'TROP ' Serial specimen #1, #2 or #3: 1 Performed By: #### L [id number] #### [facility] [address] [place], [address] GFR/1.73 sq M.predicted among non-blacks MDRD (S/P/Bld) [Vol rate/Area] 31 mL/min/{1.73_m2} Low >60 [facility] Comment on above: Order Comment: 'TROP ' Serial specimen #1, #2 or #3: 1 Result Comment: Non- GFR Calc Performed By: #### L [id number] #### [facility] [address] [place], [place], [id number] ([address]23) Globulin (S) [Mass/Vol] 5.2 g/dL High 2.2-4.2 [facility] Comment on above: Order Comment: 'TROP ' Serial specimen #1, #2 or #3: 1 Performed By: #### L [id number] #### [facility] [address] [place], [place], [id number] Glucose [Mass/Vol] 973 mg/dL Invalid Interpretation Code 74-106 [facility] Comment on above: Order Comment: 'TROP ' Serial specimen #1, #2 or #3: 1 Result Comment: Crit ical Result(s) Called at: 21:21:35 10/31/2024 by: Donna Vidal to Laxmi. Results read back by same. Glucose result greater than or equal to 200 mg/dL suggests DIABETES MELLITUS per A.D.A. criteria. Performed By: #### L [id number] #### [facility] [address] [place], [address] Potassium [Moles/Vol] 4.8 mmol/L Normal 3.5-5.1 [facility] Comment on above: Order Comment: 'TROP ' Serial specimen #1, #2 or #3: 1 Performed By: #### L [id number] #### [facility] [address] [place], [address] Sodium [Moles/Vol] 132 mmol/L Low 136-145 [facility] Comment on above: Order Comment: 'TROP ' Serial specimen #1, #2 or #3: 1 Performed By: #### L [id number] #### [facility] [address] [place], [address] T PROT 9.4 g/dL High 6.4-8.2 [facility] Comment on above: Order Comment: 'TROP ' Serial specimen #1, #2 or #3: 1 Performed By: #### L [id number] #### [facility] [address] [place], [address] Urea nitrogen [Mass/Vol] 37 mg/dL High 7-18 [facility] Comment on above: Order Comment: 'TROP ' Serial specimen #1, #2 or #3: 1 Performed By: #### L [id number] #### [facility] [address] [place], [address] Emergency Department Summary on 10-31-2024 Emergency Department Summary [facility] Medical Records Department [address] [place] [address] Emergency Department Summary 10/31/24 MR#: [id number] Acct: [id number] Name: MARIYA MATHEWS Rep #: [id number] : 1960 63 From: Justice Cabrera DO PCP: Care Physician,No Primary Status:ADM IN Location: [address] History of Present Illness Chief Complaint: Weakness PFSH PFSH Home Medications ???Medication ???Instructions ???Recorded ???Last Taken ???Type NK 10/31/24 Unknown History Allergy/AdvReac Type Severity Reaction Status Date / Time No Known Allergies Allergy Verified 10/31/24 19:09 Social History Smoking Status: Never smoker EXAM Physical Exam Const Vital Signs: 10/31/24 19:09 10/31/24 21:07 10/31/24 22:05 Temperature 97 F L Temperature Source Temporal Pulse Rate 107 H 78 Respiratory Rate 18 16 Blood Pressure 195/131 H 181/103 H 154/110 H Blood Pressure Mean 152 129 124 Pulse Ox 99 98 10/31/24 22:28 Temperature 97.8 F Temperature Source Pulse Rate 104 H Respiratory Rate 20 H Blood Pressure 184/118 H Blood Pressure Mean 140 Pulse Ox 98 [facility] [place]arr[place] Medical decision making narrative: HISTORY OF PRESENT ILLNESS: Language LIne full time staff interpreter used 63-year-old male presents with chest pain, leg weakness for 1 week. He notes for one week he has been having pain in the epigastrium, throat. Notes he takes ibuprofen daily for aches and pains. He notes that he is not eating or drinking no severe burning pain from his throat down to his abdomen. He notes history of abdominal hernia which she had surgery remotely. Denies any other surgical history. States only medicine he takes daily is ibuprofen. Patient denies sudden onset of pain, no tearing sensation, no migratory symptoms, no new numbness, weakness or loss of sensation. Patient denies family history or personal history of Connective tissue disorders (Marfan's Syndrome, Zi Danlos etc). Patient denies sudden onset of pain, no tearing sensation, no migratory symptoms, no new numbness, weakness or loss of sensation. Patient denies family history or personal history of Connective tissue disorders (Marfan's Syndrome, Zi Danlos etc). REVIEW OF SYSTEMS: Pertinent positives: Chest pain, leg weakness Pertinent negatives: Syncope PHYSICAL EXAM: Nursing triage notes reviewed, Vital signs reviewed Constitutional: please see mdm HENT: MMM Eyes: Pupils equal round and reactive to light, Extraocular muscles intact Neck: No stridor, no JVD, full neck ROM Lungs: Clear to auscultation, No wheezing or rales. No increased work of breathing, no conversational dyspnea, no accessory muscle use, no nasal flaring. No respiratory distress noted Heart: Regular rate and rhythm, No murmurs, No rubs and No gallops, 2+ distal pulses (radial, femoral, posterior tibial) in all extremities Abdomen: Soft, there is no tenderness, rigidity, rebound or guarding, no obvious peritoneal signs, no palpable pulsatile abdominal masses, no auscultated abdominal bruit : No CVAT Extremities: No edema Neuro: No new focal neurological deficits, cranial nerves II through XII intact, 5/5 strength in all present extremities. Intact sensation to light touch in all present extremities, 2+ reflexes bilateral patella tendons. Normal gait Skin: No rash or lesions noted MEDICAL DECISION MAKING: Chief Complaint: Chest pain, leg weakness External records reviewed: Diagnosed with influenza A in December 2023 otherwise no recent ED visits Factors affecting care: none reported Social determinants of health: none History obtained from others: the patient's son Consults: Internal medicine (Dr. Crapio) MDM Narrative: Patient is initially hypertensive with a blood pressure 195/131, tachycardic heart rate of 107. Exam I considered the following differential diagnosis: NSAID induced gastritis, esophageal perforation, AAA, ACS, arrhythmia, anemia, aortic dissection ALL IMAGES (IF OBTAINED) HAVE BEEN PERSONALLY REVIEWED AND INTERPRETED BY MYSELF. High-sensitivity troponin is negative, no evidence of myocardial ischemia EKG with no STEMI Lipase is wnl indicating no pancreatic inflammation. Acetone negative I have personally reviewed the patient's chest x-ray. Chest x-ray is unremarkable for pulmonary edema, pneumothorax, pneumonia or focal cardiopulmonary abnormality. CBC with leukocytosis, anemia, no thrombocytopenia VBG with normal pH however bicarb was 16, while not in DKA this is very close. BMP with pseudo hyponatremia, metabolic acidosis, elevated anion gap, acute kidney injury, severe hyperglycemia Repeat blood pressure slightly improved to 181/103, tachycardia improved. Pt received 10 U of insulin to begin treating his hyperglycemia. D (more content not included)... Normal [facility] Glucoseon 10-31-2024 Glucose [Mass/Vol] 708 mg/dL Invalid Interpretation Code 74-106 [facility] Comment on above: Result Comment: Crit ical Result(s) Called at: 23:55:21 10/31/2024 by: JESSICA BARRON TO YAMILE NICE. Results read back by same. Glucose result greater than or equal to 200 mg/dL suggests DIABETES MELLITUS per A.D.A. criteria. Performed By: #### L 501.0100 #### [facility] [address] [place], [address] L501.4020on 10-31-2024 TROPONIN-I HS 26 pg/mL Normal 3.0-78.0 [facility] Comment on above: Order Comment: 'TROP ' Serial specimen #1, #2 or #3: 1 Result Comment: Mckinley chung Note: New Test Units and Gender Specific Reference Ranges. For more information see Policy Stat Procedure [place] High Sensitivity Troponin (TNIH) and attachments. Performed By: #### L 501.6900 #### [facility] [address] [place], [address] Lipaseon 10-31-2024 Lipase [Catalytic activity/Vol] 58 U/L Normal 13-75 [facility] Comment on above: Order Comment: 'TROP ' Serial specimen #1, #2 or #3: 1 Result Comment: Mckinley chung note: LIPASE revised reference range effective 23. New Lipase methodology. Expected to produce lower values than the previous assay method. NEW Reference Range: 13 - 75 U/L Performed By: #### L 501.6900 #### [facility] [address] [place], [address] Venous Blood Gason 5 Blood Gas Type AMY Normal [facility] Comment on above: Performed By: #### L [id number] #### [facility] [address] [place], [address] CO2 [Moles/Vol] 17 mmol/L Low 23-33 [facility] Comment on above: Performed By: #### L [id number] #### [facility] [address] [place], [address] HCO3 (Bld) [Moles/Vol] 16 mmol/L Low 22-26 [facility] Comment on above: Performed By: #### L [id number] #### [facility] [address] [place], [address] O2 Delivery Dev Room Air Normal [facility] Comment on above: Performed By: #### L [id number] #### [facility] [address] [place], [address] SITE Not entered Normal [facility] Comment on above: Performed By: #### L [id number] #### [facility] [address] [place], [address] VBG BE -9 mmol/L Low -1.0-3.5 [facility] Comment on above: Performed By: #### L [id number] #### [facility] [address] [place], [address] VBG pCO2 28.1 mmHg Low 41-51 [facility] Comment on above: Performed By: #### L [id number] #### [facility] [address] [place], [address] VBG pH 7.37 Normal 7.32-7.42 [facility] Comment on above: Performed By: #### L [id number] #### [facility] [address] [place], [address] VBG PO2 58 mmHg High 25-40 [facility] Comment on above: Performed By: #### L [id number] #### [facility] [address] [place], [address] VBG SO2 89 High 50-70 [facility] Comment on above: Performed By: #### L [id number] #### [facility] [address] [place], [address] Laboratory - Microbiology an d Antimicrobial susceptibilityOrdered By: Romeo Duarte on 12-19-2023 SARS-CoV-2 (COVID-19) RNA KRYSTA+probe Ql (Unsp spec) Influenzae A [facility] Vital Signs Date Time Vital Sign Value Performing Clinician Faci lity 04-21-2025 10:59-0400 Body temperature 98 [degF] No Primary Care Physician [facility] 04-21-2025 10:59-0400 Diastolic blood pressure 115 mm[Hg] No Primary Care Physician [facility] 04-21-2025 10:59-0400 Heart rate 75 /min No Primary Care Physician [facility] 04-21-2025 10:59-0400 Respiratory rate 16 /min No Primary Care Physician [facility] 04-21-2025 10:59-0400 SaO2% (BldA) [Mass fraction] 97 % No Primary Care Physician [facility] 04-21-2025 10:59-0400 Systolic blood pressure 182 mm[Hg] No Primary Care Physician [facility] 04-21-2025 08:42-0400 Body height 175.26 cm No Primary Care Physician [facility] 04-21-2025 08:42-0400 Body mass index (BMI) [Ratio] 24.6 kg/m2 No Primary Care Physician [facility] 04-21-2025 08:42-0400 Body weight 75.7 kg No Primary Care Physician [facility] 12-19-2023 14:45-0500 Body temperature 101 [degF] [facility] 12-19-2023 14:45-0500 Diastolic blood pressure 98 mm[Hg] [facility] 12-19-2023 14:45-0500 Heart rate 98 /min [facility] 12-19-2023 14:45-0500 Respiratory rate 16 /min [facility] 12-19-2023 14:45-0500 SaO2% (BldA) [Mass fraction] 95 % [facility] 12-19-2023 14:45-0500 Systolic blood pressure 160 mm[Hg] [facility] 12-19-2023 12:45-0500 Body height 165.1 cm [facility] 12-19-2023 12:45-0500 Body mass index (BMI) [Ratio] 29 kg/m2 [facility] 12-19-2023 12:45-0500 Body weight 79 kg [facility] Encounters Encounter Date Encounter Type Care Provider Facility Start: 04-21-2025 End: 04-21-2025 Emergency department patient visit No Primary Care Physician -Emergency Department Work Phone: Start: 10-31-2024 End: 11-03-2024 Evaluation and management of inpatient No Primary Care Physician Facility:[facility] Start: 10-31-2024 ambulatory Fernando Hatfield Facility:[facility] Start: 12-19-2023 End: 12-19-2023 Emergency department patient visit [facility]-Emergency Department Work Phone: Procedures Date Procedure Procedure Detail Performing Clinician Start: 04-21-2025 CT of lumbar spine No P rimary Care Physician Start: 12-19-2023 SARS-CoV-2, Influenz a & RSV (PCR) Start: 12-19-2023 Plain chest X-ray Plan of Treatment Date Care Activity Detail Author Start: 12-19-2023 [facility] Bilirubin measurement, urine [facility] Hemoglobin [Presence] in Urine [facility] Measurement of keton es in urine using dipstick [facility] Microscopic urinalysis [facility] Organism count, micr oscopic method [facility] Patient Education [facility] Work Phone: Patient referral [facility] Work Phone: pH of Urine [facility] Specific gravity of Urine [facility] Urine dipstick for glucose [facility] Urine dipstick for l eukocyte esterase [facility] Urine dipstick for nitrite [facility] Urine dipstick for protein [facility] Urine examination [facility] Urine microscopy: ep ithelial cells [facility] Urine microscopy: red cells [facility] Urobilinogen [Presence] in Urine [facility] White blood cell count [facility] Payers Date Payer Category Payer Unknown [id number] 2024 Self-pay Unknown [id number] [id number] [id number] Unknown [id number] 2.16.8 [id number] Unknown [id number] 2.16.8 [id number] Unknown [id number] 2.16.8 [id number] Unknown [id number] 2.16.8 [id number] Unknown [id number] 2.16.8 [id number] Social History Date Type Detail Facility Start: 12-19-2023 Tobacco smoking stat [facility] Unknown if ever smoked [facility] Start: 1960 Sex Assigned At Male [facility] Start: 04-21-2025 [facility] Medical Equipment Procedure Code Equipment Code Equipment Origin al Text Equipment Identifier Dates Pen Needle, Diab etic 31 gauge x /32 needle Start: 11-03-2024 Mental Status Date Assessment Result Facility 12-19-2023 Cognitive function Level Of Cons ciousness Awake;Alert;Appropriate;Follow s Commands [facility] Work Phone: Discharge summary 04-21-2025 Note Date & Type Note Facility 04-21-2025 Discharge summary [facility] Radiology Diagnostic study note 04-21-2025 Note Date & Type Note Facility 04-21-2025 Radiology Diagnostic study note [facility] Imaging Services [address] [place] [address] Spine Lumbar without Contrast MR#: [id number] Acct: [id number] Name: MARIYA MATHEWS Rep #: [id number] : 1960 M 64 From: Carmen Markham MD PCP: Care Physician,No Primary Status: REG ER Study:Spine Lumbar without Contrast Date of E xam: 04/21/25 Exam# [id number] Ordering Dr: Everardo Winn DO EXAM: CT Lumbar Spine Without Intravenous Contrast CLINICAL INDICATION: BACK PAIN TECHNIQUE: Axial computed tomography images of the lumbar spine without intravenous contrast. This CT exam was performed using one or more of the following dose reduction techniques: automated exposure control, adjustment of the mA and/or kV according to patient size, and/or use of iterative reconstruction technique. COMPARISON: No relevant prior studies available. FINDINGS: VERTEBRAE: Mild facet arthropathy of L3-S1. Mild endplate degenerative changesof L 1 to L5. Anterior spurring of T11-L4. No acute fracture. DISCS/SPINAL CANAL/NEURAL FORAMINA: See above. SOFT TISSUES: Unremarkable. CT/Spine Lumbar without Contrast IMPRESSION: 1. No acute fracture. 2. Degenerative changes as above. Reading Location: [facility] CC: Dr. Everardo Fermin ; No Primary Care Physician ~ Director Of Accounts Receivable: Signed [facility] Discharge summary note 11-03-2024 Note Date & Type Note Facility 11-03-2024 Note [facility] Medical Records Department [address] [place] [address] Discharge Summary 11/03/24 0912 MR#: [id number] Acct: [id number] Name: MARIYA MATHEWS Rep #: [id number] : 1960 63 From: Fernando Hatfield MD PCP: Care Physician,No Primary Status:ADM IN Location: [place] [address] Providers Date of Admission: 10/31/24 Date of Discharge: 11/03/24 Primary Care Physician: No Primary Care Phys Reason For Visit: NEW ONSEST DIABETES, HYPERTENSIVE URGENCY, ACUTE Diagnosis Discharge Diagnosis (1) New onset type 2 diabetes mellitus: Status: Acute Code(s): E11.9 - Type 2 diabetes mellitus without complications (2) Hypertension: Status: Chronic Code(s): I10 - Essential (primary) hypertension (3) MAGALIS (acute kidney injury): Status: Acute Code(s): N17.9 - Acute kidney failure, unspecified (4) Dry throat: Status: Acute Code(s): J39.2 - Other diseases of pharynx Medications at Discharge Home Medications amlodipine 10 mg tablet 10 mg PO DAILY 90 days #90 tabs 11/03/24 atorvastatin 40 mg tablet 40 mg PO QHS #90 tabs 11/03/24 glimepiride 2 mg tablet 2 mg PO DAILY #90 tabs 11/03/24 insulin glargine 100 unit/mL (3 mL) subcutaneous pen (Lantus Solostar U-100 Insulin) 20 unit (0.2 mL) subcut BID #30 mL 11/03/24 losartan 25 mg tablet 25 mg PO DAILY #90 tabs 11/03/24 metformin 500 mg tablet 500 mg PO BID #180 tabs 11/03/24 Hospital Course Summary of Care Provided Minutes Spent on Discharge: 35 Hospital Course: 63-year-old gentleman was admitted with epigastric discomfort and weakness patient was found to have elevated glucose level as well as anion gap consistent with diabetic ketoacidosis transferred to the ICU treatment initiated per protocol 1. New onset diabetes mellitus type 2 ??? Patient presented with diabetic ketoacidosis managed with IV fluids, systemic insulin with correction of electrolytes DKA resolved patient discharged on Lantus added metformin and glimepiride on discharge. Plans for patient to follow-up with [facility] for subsequent care. Case was discussed with the patient and the son via telephone prior to patient being discharged 2. Hyponatremia ??? A combination of pseudohyponatremia as well as hypovolemic hyponatremia resolved with treatment of patient's DKA as well as with IV fluid resuscitation 3. Newly diagnosed hypertension ??? Prescription was written for amlodipine and losartan on discharge 4.Acute kidney injury ??? Secondary to recent motor nephropathy from severe dehydration resolved with IV fluids 5. DVT prophylaxis ??? Subcu heparin Physical Exam Narrative GENERAL: cooperative HEENT: Atraumatic; normocephalic EYES; Anicteric, Normal Conjunctiva NECK; supple, normal thyroid, RESPIRATORY: Diminished to auscultation CARDIOVASCULAR: Regular S1 S2, GI: soft, normoactive bowel sounds, : No Renal angle tenderness; EXTREMITIES: No edema, no clubbing, MUSCULOSKELETAL: no muscle wasting NEURO: Awake; no lateralizing signs. SKIN: No Rash PSYCH; Flat affect Weight / BMI Weight Weight: 73.3 kg Body Mass Index (BMI) 24.5 ABG / Lab / Microbiology Data 11/03/24 05:42 11/03/24 05:42 Laboratory: Laboratory Results - last 24 hr 11/02/24 05:29: Free T4 0.99 11/02/24 11:12: POC Glucose 237 H 11/02/24 16:26: POC Glucose 195 H 11/02/24 20:58: POC Glucose 171 H 11/03/24 05:42: WBC 8.9, RBC 4.83, Hgb 13.2, Hct 40.1, MCV 83.0, MCH 27.3, MCHC 32.9, RDW Std Deviation 34.2 L, RDW Coeff of Sarina 11.2 L, Plt Count 189, MPV 10.9, Immature Gran % (Auto) 0.200, Neut % (Auto) 68.1, Lymph % (Auto) 25.6, [place] % (Auto) 5.3, Eos % (Auto) 0.7, Baso % (Auto) 0.1, Absolute Neuts (auto) 6.0, Absolute Lymphs (auto) 2.27, Nucleated RBC % 0, Sodium 137, Potassium 3.7, Chloride 105, Carbon Dioxide 23.0, Anion Gap 9, BUN 18, Creatinine 1.16, Estim Creat Clear Calc 63.06, Est GFR (MDRD) Af Amer 82, Est GFR (MDRD) Non-Af 67, BUN/Creatinine Ratio 15.5, Glucose 304 H , Calcium 8.9 Microbiology: Microbiology 11/01/24 08:34 Mucosa - Throat Streptococcus pyogenes (PCR) - Final D/C Instructions Discharge Diet: 1800 Calorie Control Diet Discharge Activity: Return to Normal Activity Call your doctor if you observe: Fever of 101 or Higher, Shortness of breath, Fainting spells and Chest pain DC O2, CPAP, BIPAP Needs Home O2 Discharge instructions: No Meaningful Use Info Meaningful Use Meaningful Use Diagnoses (Choose all that apply): None applicable Ischemic Stroke Statin Dosing Therapy Reference: STATIN DOSE THERAPY REFERENCE: * Patients > 75 years receive moderate or high dose statin therapy. * Patients 75 years or YOUNGER should receive HIGH intensity statin dose unless contraindicated. You will be required to document reason for non-treatment if statin daily dose does not meet guidel (more content not included)... [facility] Clinical Note 10-31-2024 Note Date & Type Note Facility 10-31-2024 Note [facility] Medical Records Department [address] [place] [address] History Physical Exam 10/31/247 MR#: [id number] Acct: [id number] Name: MARIYA MATHEWS Rep #: [id number] : 1960 63 From: Romeo Carpio MD PCP: Care Physician,No Primary Status:ADM IN Location: [facility] [id number] HPI - General General Date of Admission: 10/31/24 Date of Service: 10/31/24 Chief Complaint: Generalized weakness HPI Narrative MARIYA MATHEWS, is a 63 M who presents to the emergency room with chief complaint of generalized weakness. Language line full time staff interpreter was used to communicate with the patient who is from [facility] and speaks Creole. Patient complains of sore and dry throat along with leg weakness and chest discomfort that started approximately 1 week ago. Patient denies taking any routine medication other than over the counter ibuprofen for daily aches and pains. He states he has had difficulty with drinking and burning pain in his throat down to his abdomen that has been going on for this past week. He does have a remote history of surgery to his abdomen for a hernia. Patient denies any new numbness or loss of sensation. Patient denies history of any connective tissue disorders including Marfan's or Erler's Danlos syndrome. He does state upon standing he does feel dizzy and weak in the legs. Initial blood sugar was found to be in the 900s and blood pressure has been running in the 180s to 190s over 100. Acetone level is negative in the blood and anion gap is 18. Troponin is negative. Patient was initially given insulin and IV fluid in the emergency room and he will be admitted to the progressive care unit for continued monitoring of his hyperglycemia and hypertension. Repeat labs will be ordered in the a.m. [facility] Home Medications ???Medication ???Instructions ???Recorded ???Last Taken ???Type NK 10/31/24 Unknown History Allergy/AdvReac Type Severity Reaction Status Date / Time No Known Allergies Allergy Verified 10/31/24 19:09 Social History Smoking Status: Never smoker ROS Constitutional Constitutional: Reports weakness; Denies chills or fever(s) Eyes Eyes: Denies blurry vision ENT HEENT: Reports dysphagia and sore throat; Denies abnormal hearing Cardiovascular Cardiovascular: Reports chest pain Respiratory/Chest Respiratory/Chest: Denies cough Gastrointestinal Gastrointestinal: Denies abdominal pain Genitourinary Genitourinary: Denies dysuria Musculoskeletal Musculoskeletal: Denies back pain Integumentary Integumentary: Denies dry skin Neurologic Neurologic: Denies confusion Psychiatric Psychiatric: Denies anxiety Vital Signs Vital Signs Vital Signs: 10/31/24 19:09 10/31/24 21:07 10/31/24 22:05 Temperature 97 F L Temperature Source Temporal Pulse Rate 107 H 78 Respiratory Rate 18 16 Blood Pressure 195/131 H 181/103 H 154/110 H Blood Pressure Mean 152 129 124 Pulse Ox 99 98 Weight Weight: 162 lb 14.4 oz Body Mass Index (BMI) 24.7 Physical Exam Const alert and oriented x3 General Appearance: cooperative HEENT normocephalic and head/scalp atraumatic Eyes PERRL Neck no lymphadenopathy Neck Narrative: Oral mucosa dry Lymph Lymphatic: no lymphadenopathy noted Resp normal air movement and clear to auscultation bilaterally Cardio regular rate, regular rhythm, S1 normal heart sound and S2 normal heart sound GI normal to inspection, nondistended, normoactive bowel sounds Extremity normal capillary refill Skin General Skin Exam: no breakdown Neuro no focal motor deficits and no sensory deficits noted Psych thought process normal, cooperative and affect normal Results Lab / Micro Data 10/31/24 20:28 10/31/24 20:28 Labs: Laboratory Results - last 24 hr 10/31/24 20:28: WBC 11.1 H, RBC 5.47, Hgb 15.4, Hct 45.2, MCV 82.6, MCH 28.2, MCHC 34.1, RDW Std Deviation 33.7 L, RDW Coeff of Sarina 11.3 L, Plt Count 255, MPV 11.7, Immature Gran % (Auto) 0.400, N eut % (Auto) 82.3 H, Lymph % (Auto) 13.7 L, [place] % (Auto) 3.4, Eos % (Auto) 0.0, Baso % (Auto) 0.2, Absolute Neuts (auto) 9.1 H, Absolute Lymphs (auto) 1.52, Nucleated RBC % 0, Sodium 132 L, Potassium 4.8, Chloride 94 L, Carbon Dioxide 20.0 L, Anion Gap 18 H, BUN 37 H, Creatinine 2.29 H, Estim Creat Clear Calc 31.94, Est GFR (MDRD) Af Amer 37 L, Est GFR (MDRD) Non-Af 31 L, BUN/Creatinine Ratio 16.2, Glucose 973 H*, Calcium 10.2 H, Total Bilirubin 0.60, AST 7 L, ALT 25, Alkaline Phosphatase 102, Troponin I High Sens 26, Total Protein 9.4 H, Albumin 4.2, Globulin 5.2 H, Albumin/Globulin Ratio 0.8 L, Lipase 58 10/31/24 21:43: Acetone Level NEGATIVE ABG Data ABG results: ABG 10/31/24 21:50 Specimen Type AMY Sample Site Not entered VBG pH 7.37 VBG pO2 58 H VBG HCO3 16 (more content not included)... [facility] Discharge summary 12-19-2023 Note Date & Type Note Facility 12-19-2023 Discharge summary Note Date/Time December 19, 2023 1:01pm [facility] Medical Records Department [address] [place] [address] Emergency Department Summary 12/19/23 MR#: [id number] Acct: [id number] Name: MARIYA MATHEWS Rep #:[id number] : 1960 63 From: Gurinder Mcdonnell MD PCP: Care Physician,No Primary Status :REG ER Location: ED HPI <GERI Rosales - Last Filed: 12/19/23 14:42> History of Present Illness Chief Complaint: Fever Narrative Narrative: Patient is a 63-year-old male with no significant history who is from [facility] who presents to the emergency department for 2 days of generalized malaise, cough, body aches, headache fever and chills. Patient states last evening, he was shaking, he had to take Tylenol, today, he has a cough, generalized body aches and is here for evaluation. He denies any nausea or vomiting. Denies any sick contacts. Patient states he is coughing with no sputum production. PFSH <GERI Rosales - Last Filed: 12/19/23 14:42> [facility] Medical History no medical history Allergy/AdvReac Type Severity Reaction Status Date / Time No Known Allergies Allergy Verified 12/19/23 12:45 Social History Smoking Status: Never smoker ROS <GERI Rosales - Last Filed: 12/19/23 14:42> ROS ED ROS Narrative Constitutional: Negative for weight loss, weakness. Positive for fever and chills Eyes: Negative for vision loss, vision change, double vision ENT: Negative for any sore throat, ear pain, congestion Cardiovascular: Negative for any chest pain, tightness, palpitations Respiratory: Negative for any sputum production, hemoptysis, dyspnea, dyspnea onexertion, orthopnea. Positive for cough Gastrointestinal: Negative for any abdominal pain, nausea, vomiting, diarrhea, constipation, blood in stool, blood in vomit : Negative for any urinary frequency, dysuria, retention, blood in urine Muscle skeletal: Negative for any neck pain, back pain. Positive for generalized bodyaches Neurological: Negative for any headache, syncope, dizziness Skin: Negative for any rashes, itching, abrasions, lacerations Psychiatric: Negative for any depression, anxiety, stress, suicidal ideation, homicidal ideation Hematologic: Negative for any excessive bruising, easy bleeding EXAM <GERI Rosales - Last Filed: 12/19/23 14:42> Physical Exam Narrative Exam Narrative: Vital signs reviewed. Low-grade fever, slightly tachycardic HEET: Head normocephalic atraumatic, TMs clear bilaterally. Posterior pharynx is clear, moist mucous membranes. Nares clear bilaterally. Neck: Supple with no lymphadenopathy or tenderness. No signs of meningismus. Cardiac: Regular rate and rhythm no murmurs gallops or rubs, equal peripheral pulses bilaterally. Respiratory: Lungs clear to auscultation bilaterally. No chest tenderness. Abdomen: Soft, nontender, nondistended. No abdominal bruit or pulsatile masses. No hepatosplenomegaly Extremities: No peripheral edema, no signs of gross trauma or deformity. Activefull range of motion of all extremities. Neuro: Cranial nerves II through XII intact, no focal neurological deficits. Skin: Clean dry and intact with no rash, purpura, petechiae, vesicles or pustules. Backs/flank: No CVA tenderness, no midline spinal tenderness, no deformity. Psych: Normal mood and affect. No SI, HI or acute psychosis. Const Vital Signs: 12/19/23 12:45 12/19/23 13:41 12/19/23 13:44 Temperature 99.9 F H 101.4 F H Temperature Source Temporal Oral Pulse Rate 106 H 112 H Respiratory Rate 22 H 16 Respiratory Effort Normal Respiratory Pattern Normal Blood Pressure 199/101 H 175/108 H Blood Pressure Mean 133 130 Pulse Ox 97 95 Oxygen Delivery Method Room Air Room Air 12/19/23 14:36 12/19/23 14:45 Temperature 100 F H 99.5 F H Temperature Source Oral Pulse Rate 98 Respiratory Rate 16 Respiratory Effort Respiratory Pattern Blood Pressure 160/98 H Blood Pressure Mean 118 Pulse Ox 95 Oxygen Delivery Method <Dr. Gurinder Mcdonnell MD - Last Filed: 12/19/23 14:50> Physical Exam Const Vital Signs: 12/19/23 12:45 12/19/23 13:41 12/19/23 13:44 Temperature 99.9 F H 101.4 F H Temperature Source Temporal Oral Pulse Rate 106 H 112 H Respiratory Rate 22 H 16 Respiratory Effort Normal Respiratory Pattern Normal Blood Pressure 199/101 H 175/108 H Blood Pressure Mean 133 130 Pulse Ox 97 95 Oxygen Delivery Method Room Air Room Air 12/19/23 14:36 12/19/23 14:45 Temperature 100 F H 99.5 F H Temperature Source Oral Pulse Rate 98 Respiratory Rate 16 Respiratory Effort Respiratory Pattern Blood Pressure 160/98 H Blood Pressure Mean 118 Pulse Ox 95 Oxygen Delivery Method [facility] <Romeo Duarte NP-[place] - Last Filed: 12/19/23 14:42> [facility] Radiography Diagnostic Testing: Clinical Impression(s) from Imaging Studies Chest X-Ray 12/19/23 12:53 IMPRESSION: No radiographic evidence of acute cardiopulmonary disease. Electronically Signed: Timothy Bridges MD at 13:36 EST , Treatment and Re-Evaluation :: Differential diagnosis includes however is not limited to: COVID-19, RSV, influenza, community-acquired pneumonia, other viral illness. Gastroenteritis. Patient appears to be in no obvious distress. Presenting to the emergency department with complaints of viral-like symptoms such as fever, headache, body aches and cough. Patient will receive a rapid COVID/influenza/RSV test, urinalysis, as well as two-view chest x-ray. Patient be given Tylenol for his headache as well as body aches. Patient will be reevaluated Patient's chest x-ray inter by the ER physician shows no radiographic evidence of any acute cardiopulmonary process. Patient's rapid COVID/influenza/RSV was positive for influenza A. This does coincide with all the patient's symptom such as cough, fever and chills. I do believe the patient was not taking ibuprofen and Tylenol correctly, the fever became higher and he felt more uncomfortable. Patient given instructions regarding proper hydration, patient to continue to take ibuprofen, Tylenol. He was given strict return precautions. Patient is happy with the plan of care, all questions were answered, patient stable for discharge. <Dr. Gurinder Mcdonnell MD - Last Filed: 12/19/23 14:50> MDM Radiography Diagnostic Testing: Clinical Impression(s) from Imaging Studies Chest X-Ray 12/19/23 12:53 IMPRESSION: No radiographic evidence of acute cardiopulmonary disease. Electronically Signed: Timothy Bridges MD at 13:36 EST , Treatment and Re-Evaluation Comments:: I have personally performed a face to face assessment of the patient and have reviewed the DIANA Note. I performed a substantive portion of the visit including all aspects of the following. My rehman findings include: History is 1-2 days of cough, sore throat, fatigue, body aches, headaches, fevers. No dyspnea. Exam is well-appearing in no distress. Lungs clear to auscultation throughout. No tachycardia on my exam. No cervical lymphadenopathy. No potato voice or stridor. No rashes. Medical Decison Making: Viral syndrome likely here. Chest x-ray 2 views my interpretation is normal with no signs of pneumonia. We did a viral swab and ispositive for influenza A. This explains his symptoms and we do not think he needs any acute treatment or Tamiflu. He does not meet CDC recommendations/criteria for Tamiflu, and he is stable with no hypoxemia, discharged with supportive care instructions. Other additions or changes: [None] Discharge Plan Triage Chief Complaint: Fever ED Midlevel Provider: Romeo Duarte ED Provider: Gurinder Mcdonnell Dx/Rx/DC Orders Clinical Impression: Influenza A, Viral illness Instructions: ED Influenza (Adult) Primary Care Provider: Care Physician,No Primary Referrals: Care Physician,No Primary [Primary Care Provider] - Activity Restrictions/Additional Instructions: Please take Tylenol 1000 mg every 6-8 hours, you may take ibuprofen 600 mg every8 hours. You must maintain hydration. Ensure that you eat and drink normally. Follow-up with your primary care provider. Disposition Disposition: Home, Self Care What to do if you have Problems For any increased pain, shortness of breath, bleeding, nausea or vomiting, chestpain, or any unexpected problems, contact your Primary Care Provider. Call [facility] ([phone]) or report to the closest Emergency Room. Call 911 if necessary. 12/19/23 1450 <Electronically signed by Gurinder Mcdonnell MD> Cosigner Signature (if applicable): 12/19/23 1442 <Electronically signed by Romeo NEVAREZ> CC: No Primary Care Physician ~ Signed [facility] Work Phone: Hospital Discharge instructions 12-19-2023 Note Date & Type Note Facility 12-19-2023 Hospital Discharg e instructions Additional Instructions Please take Tylenol 1000 mg every 6-8 hours, you may take ibuprofen 600 mg every 8 hours. You must maintain hydration. Ensure that you eat and drink normally. Follow-up with your primary care provider. [facility] Work Phone: Discharge summary Note Date & Type Note Facility Discharge summary Note Date/Time April 21, 2025 11:26am [facility] Medical Records Department [address] [address] Emergency Department Summary 04/21/25 MR#: [id number] Acct: [id number] Name: MARIYA MATHEWS Rep #:[id number] : 1960 64 From: Everardo alegre DO PCP: Care Physician,No Primary Status :REG ER Location: ED HPI History of Present Illness Chief Complaint: Back Narrative Narrative: Chief complaint and HPI: Lumbar back pain. 64-year-old gentleman with past medical history of HTN, HLD, DM2 presents for evaluation of lumbar back pain. Patient does not speak Spanish and therefore official zoo veterinarian was used. Patient states yesterday he was lifting heavy boxes when he shortly later developed lumbar back pain. Lumbar back pain is lower and radiates to bilateralsides. At baseline he has diabetic neuropathy of the feet but denies any new numbness or tingling. Denies weakness, urinary retention, stool or urinary incontinence, saddle anesthesia, fever, abdominal pain, nausea, vomiting, chest pain, shortness of breath. He has not taken anything for the pain. Review of systems: See HPI Medications: As listed on the chart Allergies: As listed on the chart PFSH: Per chart Vital signs: As listed on the chart. Reviewed. Physical exam: Gen: A&O x3, NAD Head: Normocephalic, atraumatic Eyes: No sclera icterus, conjunctiva clear ENT: Moist mucous membranes Neck: Trachea midline, No JVD CV: RRR, no murmurs, no peripheral edema Resp: Lungs CTA BL, no w/r/c GI: Abd soft, non-distended, non-tender, no r/r/g Musc: Full ROM, no deformity no midline spinal tenderness, no bony step-offs, patient has tenderness to palpation along the paraspinal musculature of the lumbar spine bilaterally, no signs of injury or infection DP/PT pulses +2 bilaterally, strength plus 5 out of 5 in all extremities Skin: Warm, dry Neuro: Alert, oriented, grossly intact, sensation intact Psych: Cooperative, appropriate mood and affect [facility] Medical History (Updated 04/21/25 @ 11:[address] Everardo Fermin, DO) Diabetes Home Medications ?Medication ?Instructions ?Recorded ?Last Taken ?Type amlodipine 10 mg tablet 10 mg PO DAILY 90 days #90 t abs 11/03/24 Unknown Rx atorvastatin 40 mg tablet 40 mg PO QHS #90 tabs Unknown Rx glimepiride 2 mg tablet 2 mg PO DAILY #90 tabs 11/03 Unknown Rx insulin glargine 100 unit/mL (3 20 unit (0.2 mL) subcu t BID #30 mL 11/03/24 Unknown Rx mL) subcutaneous pen (Lantus Solostar U-100 Insulin) losartan 25 mg tablet 25 mg PO DAILY #90 tabs 10/13 01/03 Unknown Rx metformin 500 mg tablet 500 mg PO BID #180 tabs 10/13 01/03 Unknown Rx pen needle, diabetic 31 gauge x #100 ea 11/03/24 Unkno wn Rx cyclobenzaprine 5 mg tablet 5 mg PO TID PRN muscle spa sm 3 04/21/25 Unknown Rx days #9 tabs Allergy/AdvReac Type Severity Reaction Status Date / Time No Known Allergies Allergy Verified 04/21/25 09:14 Social History Smoking Status: Never smoker EXAM Physical Exam Const Vital Signs: 04/21/25 08:42 04/21/25 10:37 04/21/25 10:59 Temperature 98 F 98.0 F Temperature Source Temporal Pulse Rate 92 73 75 Respiratory Rate 14 16 16 Blood Pressure 218/130 H 157/108 H 182/115 H Blood Pressure Mean 159 124 137 Pulse Ox 98 98 97 Oxygen Delivery Method Room Air Room Air MDM MDM MDM Narrative Medical decision making narrative: 64-year-old gentleman with past medical history of HTN, HLD, DM2 presents for evaluation of lumbar back pain. Patient does not speak Spanish and therefore official zoo veterinarian was used. Patient states yesterday he was lifting heavy boxes when he shortly later developed lumbar back pain. Lumbar back pain is lower and radiates to bilateral sides. There is nothing to suggest any infectious etiology. There is no neurologic findings to suggest an acute cauda equina syndrome, infectious etiology, or any acute radiculopathy. At this point I do not feel any emergent MRI is needed. Will obtain CT of the lumbar spine toassess for fracture. Differential diagnosis includes but is not limited to myofascial spasm, back strain, fracture. On presentation patient is no acute distress other than hypertension. He supposed to be on amlodipine and losartan however has not been taking this. His hypertension may be secondary to noncompliance with medication versus pain. Will treat his pain with IM Toradol and Valium. Will reassess the blood pressure. CT of the lumbar spine ordered. CT of the lumbar spine without any acute fracture. Patient does have degenerative changes. On reevaluation, patient's pain has improved although is still present. He is able to ambulate without difficulty. I do think his pain is secondary to a lumbar back strain versus spasm. His blood pressure improved with pain medicine however is still hypertensive at 182/115, I do think his hypertension is a component of pain as well as not taking his medication.. He is asymptomatic from the hypertension. I do not think further hypertensive workup is needed. Patient states that he has not been taking his antihypertensive medications. He states that he has them all at home. He was educated the importance of taking his antihypertensives. He was told he needs to go home and take these. He was told he needs to monitor his blood pressure. He needs to take all of his medication that is prescribed regularly the right way. He confirmed understanding. Return precautions were explained. Follow-upwith primary care physician. Tylenol and Motrin as needed for pain. Muscle relaxers as needed. Patient given a work note for today. Official zoo veterinarian was used. Impression: 1. Lumbar back strain 2. Hypertension with history of hypertension, not compliant with medication Radiography Diagnostic Testing: Clinical Impression(s) from Imaging Studies Lumbar Spine CT 04/21/25 09:33 IMPRESSION: 1. No acute fracture. 2. Degenerative changes as above. Reading Location: [facility] Discharge Plan Triage Chief Complaint: Back ED Provider: Everardo Fermin Dx/Rx/DC Orders Clinical Impression: Acute lumbar back pain Instructions: ED Back Spasm, No Trauma, ED Back Sprain/Strain Prescriptions: New cyclobenzaprine 5 mg tablet 5 mg PO TID PRN (Reason: muscle spasm) 3 Days Qty: 9 0RF No Action amlodipine 10 mg Tablet 10 mg PO DAILY 90 Days Qty: 90 3RF losartan 25 mg tablet 25 mg PO DAILY Qty: 90 3RF atorvastatin 40 mg tablet 40 mg PO QHS Qty: 90 3RF metformin 500 mg tablet 500 mg PO BID Qty: 180 3RF glimepiride 2 mg tablet 2 mg PO DAILY Qty: 90 3RF insulin glargine [Lantus Solostar U-100 Insulin] 100 unit/mL (3 mL) insulin pen 20 unit subcut BID Qty: 30 0RF Patient Comments: pt states he only uses insulin if his BS is over 300 (DME) pen needle, diabetic 31 gauge x 5/32 needle See Rx Instructions .ROUTE .MEDSUPPLY Qty: 100 0RF Rx Instructions: As directed Stand Alone Forms: ED Work / School Excuse Primary Care Provider: Care Physician,No Primary Referrals: Romeo Carpio MD [Med Staff - Active Staff] - 3-5 Days Care Physician,No Primary [Primary Care Provider] - 3-5 Days Activity Restrictions/Additional Instructions: Follow-up with your primary care physician who writes your medications. If you want a new primary care physician follow-up with the one provided above. You need to go home and take all of your blood pressure medication. You need to be taking all of your medication that is prescribed regularly and every day. Monitor your blood pressure at home. You received Toradol here in the emergencydepartment, no ibuprofen for 8 hours. Okay for Tylenol. You received a muscle relaxer here in the emergency department, no muscle relaxer for 8 hours. Do notdrive or operate heavy machinery while taking muscle relaxers. They can increase confusion, falls, dizziness. Return back to the ED if symptoms change or worsen. Print Language: Oscar Cutler Disposition Disposition: Home, Self Care What to do if you have Problems For any increased pain, shortness of breath, bleeding, nausea or vomiting, chestpain, or any unexpected problems, contact your Primary Care Provider. Call [facility] ([phone]) or report to the closest Emergency Room. Call 911 if necessary. 04/21/25 1126 <Electronically signed by Everardo Fermin DO> Cosigner Signature (if applicable): CC: No Primary Care Physician ~ Signed [facility] Work Phone: Evaluation note Note Date & Type Note Facility Evaluation note No assessment information availa ble [facility] Work Phone: Hospital Discharge instructions Note Date & Type Note Facility Hospital Discharge instructions Additional Instructions Follow-up with your primary care physician who writes your medications. If you want a new primary care physician follow-up with the one provided above. You need to go home and take all of your blood pressure medication. You need to be taking all of your medication that is prescribed regularly and every day. Monitor your blood pressure at home. You received Toradol here in the emergency department, no ibuprofen for 8 hours. Okay for Tylenol. You received a muscle relaxer here in the emergency department, no muscle relaxer for [address] or operate heavy machinery while taking muscle relaxers. They can increase confusion, falls, dizziness. Return back to the ED if symptoms change or worsen. [facility] Work Phone: Reason for referral (narrative) Note Date & Type Note Facility Reason for referral (narrative) No reason for referral information available [facility] Work Phone: Chief Complaint and Reason for Visit Chief Complaint FLU Chief Complaint Admit Date back April 21, 2025 8:42 am Advance Directives No Advanced Directives Records Found Advance Directive Response Recorded Date/ Time Living Will No December 19, 2023 1:41pm Power of Millinery Blocker No December 18 1:41pm Advance Directive Response Recorded Date/ Time Do you have a Healthcare Power of Millinery Blocker? No April 21, 2025 9:21am Summary Purpose Family History No Family History Records Found Additional Source Comments Care Teams (unrecognized sec tion and content) Team Status: Active Member Role Status Dates No Primary Care Physician Primary Care Provider Active Team Status: Inactive Member Role Status Dates Dr. Gurinder Mcdonnell MD Emergency Provider Active No Primary Care Physician Primary Care Provider Active Team Status: Active Member Role/Relationship Status Dates No Primary Care Physician Primary Care Provider Active Team Status: Inactive Member Role/Relationship Status Dates No Primary Care Physician Primary Care Provider Active Start: April 21, 2025 End: April 21, 2025 Dr. Everardo Fermin DO Emergency Provider Activ e Start: April 21, 2025 End: April 21, 2025 Goals (unrecognized section and content) Goals may be documented in a n alternate sectionGoals may be documented in an alternate section (unrecognized sect ion and content) No Status Records Found INFORMATION SOURCE (unrecogn ized section and content) DATE CREATED AUTHOR 04/29/2025 [facility] FOR RECORDS PERTAINING TO PATIENTS WHO ARE OR HAVE BEEN ENROLLED IN A CHEMICAL DEPENDENCY/SUBSTANCEABUSE PROGRAM, SOME INFORMATION MAY BE OMITTED. This clinical summary was aggregated from multiple sources. Caution should be exercised in using it in the provision of clinical care. This summary normalizes information from multiple sources, and as a consequence, information in this document may materially change the coding, format and clinical context of patient data. In addition, data may be omitted in some cases. CLINICAL DECISIONS SHOULD BE BASED ON THE PRIMARY CLINICAL RECORDS. [facility]. provides no warranty or guarantee of the accuracy or completeness of information in this document.
[2025-05-12 19:55] LABS: Mucous, Urine 0 SEEN /hpf (<or=2+); Red Blood Cells-Urine 0 SEEN /hpf (0-5); Squamous Epithelial Cells - UA 0 SEEN /hpf (0-5)
[2025-05-12 19:58] LABS: Troponin T High Sensitivity 11 ng/L (<=22)
[2025-05-12 20:01] LABS: BETA-HYDROXYBUTYRATE 5.8 mmol/L (0.0-0.3); Magnesium 2.8 mg/dL (1.5-2.2)
[2025-05-12 20:05] LABS: Color, Urine Straw (Yellow); Glucose, Dipstick 1000 mg/dl (Normal); Ketone-Dipstick 50 mg/dl (Negative); Leukocyte Esterase-Dipstick Negative /ul (Negative); Nitrite-Dipstick Negative (Negative); Occult Blood-Urine Negative /ul (Negative); Protein-Dipstick Negative (Negative); Specific Gravity, Urine 1.010 (1.002-1.030); Urine Bilirubin Dipstick Negative (Negative)
[2025-05-12 20:15] LABS: AST(SGOT) 13 U/L (<=37); Alanine Aminotransfer ALT/SGPT 20 U/L (<=46); Albumin, Serum 4.4 g/dL (3.4-4.8); Alkaline Phosphatase 94 U/L (40-129); Anion Gap 24 (5-15); BUN 38 mg/dL (4-19); BUN/Creat Ratio 23.0 RATIO (10-20); Calcium,Total 9.1 mg/dL (7.6-11.0); Carbon Dioxide 15.6 mmol/L (21.0-32.0); Chloride 90 mmol/L (98-108); Estimated Creatinine Clearance 45.78 ml/min (50-250); Globulin 3.4 g/dL (2.2-4.2); Glucose 896 mg/dL (70-99); Potassium 6.2 mmol/L (3.3-5.1)
[2025-05-12] MEDS: 0.9% Normal Saline (1000mL) 1,000 ML 1000 ML IV (20:43)
--- NOTE | 2025-05-12 21:02 | ED.RN ---
This RN confirmed with Dr Phillip that she wanted both IVP of insulin and IV infusion. Dr. Phillip responded with correct I want both to get him down faster
--- NOTE | 2025-05-12 21:05 | PCM.HP.STD ---
[facility] - General General Date of Admission: 05/12/25 Date of Service: 05/12/25 Chief Complaint: Hyperglycemia. HPI Narrative MARIYA MATHEWS, is a 64 M with a past medical history of essential hypertension; on amlodipine and losartan, hyperlipidemia; on atorvastatin, DM-2; on metformin, glimepiride and insulin glargine 20U BID, history of muscle spasms; on prn cyclobenzaprine TID and medical who presents to [facility] ER complaining of hyperglycemia. Mr. Mathews speaks Tajik Creole and is apparently not fluent in Frisian making communication difficult compounded by the fact that he is also a poor historian so information was primarily gathered from chart, medical staff and computer. According to his logistics support he apparently ran out of multiple medications ~3 weeks ago and did not follow-up with a primary care physician with subsequent polyuria and polydipsia with the patient describing 'cotton-mouth'. He states his glucometer is just been reading high. His triage note in the ER stated that he had a sudden onset of chest pain and dizziness earlier today but he denied it to the ER physician. There is no report of associated fever, chills, nausea, vomiting, diarrhea, constipation, palpitations, heart racing, lower extremity edema, shortness of breath, headache or rash. In the ER he was noted to have critical hyperglycemia of 896 mg/dL with an elevated beta-hydroxybutyric acid of 5.8 mmol/L present on admission consistent with DKA with VBG revealing pH of 7.32 with VBG HCO3 of 17 mmol/L complicated by suspected MAGALIS; with elevated serum creatinine of 1.63 mg/dL present on admission (up from his previous baseline of 1.16 mg/dL last admission) in addition to Hyperkalemia of 6.2 mmol/L present on admission compounded by clinical evidence of Uncontrolled Hypertension with elevated blood pressure of 184/107 mmHg suspected to be due to Medical Noncompliance and he was then admitted to the ICU for ongoing care for status is expected to extend beyond 2 midnights. [facility] Medical History Diabetes Home Medications ?Medication ?Instructions ?Recorded ?Last Taken ?Type amlodipine 10 mg tablet 10 mg PO DAILY 90 days #90 tabs 11/03/24 Unknown Rx atorvastatin 40 mg tablet 40 mg PO QHS #90 tabs 11/03/24 Unknown Rx glimepiride 2 mg tablet 2 mg PO DAILY #90 tabs 11/03/24 Unknown Rx insulin glargine 100 unit/mL (3 20 unit (0.2 mL) subcut BID #30 mL 11/03/24 Unknown Rx mL) subcutaneous pen (Lantus Solostar U-100 Insulin) losartan 25 mg tablet 25 mg PO DAILY #90 tabs 11/03/24 Unknown Rx metformin 500 mg tablet 500 mg PO BID #180 tabs 11/03/24 Unknown Rx pen needle, diabetic 31 gauge x #100 ea 11/03/24 Unknown Rx cyclobenzaprine 5 mg tablet 5 mg PO TID PRN muscle spasm 3 04/21/25 Unknown Rx days #9 tabs Allergy/AdvReac Type Severity Reaction Status Date / Time No Known Allergies Allergy Verified 04/21/25 09:14 Social History Smoking Status: Never smoker ROS ROS Narrative Full review of systems was not possible at this time due to patient being a poor historian and only able to speak Tajik Creole. Vital Signs Vital Signs Vital Signs: 05/12/25 19:09 05/12/25 19:09 05/12/25 20:09 Temperature 98.1 F Temperature Source Oral Pulse Rate 83 77 Respiratory Rate 27 H 18 Respiratory Effort Short of Breath Respiratory Pattern Tachypnea Blood Pressure 184/107 H 165/110 H Blood Pressure Mean 132 128 Pulse Ox 100 Oxygen Delivery Method Room Air Weight Weight: 161 lb 2.526 oz Body Mass Index (BMI) 23.8 Physical Exam Const alert and no apparent distress Constitutional Narrative: Patient appears acutely ill. General Appearance: cooperative HEENT normocephalic, head/scalp atraumatic and hearing grossly normal bilaterally HEENT Narrative: Mucous membranes dry. Eyes PERRL, EOMs intact bilaterally and conjunctivae normal Neck no lymphadenopathy, supple and no JVD Resp normal respiratory effort, no retractions, no use of accessory muscles and clear to auscultation bilaterally Cardio regular rate and regular rhythm GI normal to inspection, nondistended, normoactive bowel sounds, soft to palpation, non-tender and non-distended Extremity normal to inspection, full ROM and no clubbing, cyanosis or edema Skin Skin Narrative: Patient has evidence of rash, abscess, wounds or jaundice. Neuro CN's II-XII intact bilaterally, moves all extremities and no focal motor deficits Neuro Narrative: Patient is alert and a poor historian unable to speak Frisian Sensorium / Orientation: awake and alert Speech: speech normal Psych affect normal Results Medical Records Data Attestation: I reviewed the patient's medical records Lab / Micro Data Attestation: I reviewed the patient's lab results. 05/12/25 19:15 05/13/25 00:25 Labs: Laboratory Results - last 24 hr 05/12/25 18:59: POC Glucose > 500 H* 05/12/25 19:15: WBC 8.0, RBC 4.60, Hgb 13.2, Hct 38.8 L, MCV 84.3, MCH 28.7, MCHC 34.0, RDW Std Deviation 35.7, RDW Coeff of [place] 11.8, Plt Count 223, MPV 10.9, Immature Gran % (Auto) 0.300, Neut % (Auto) 91.1 H, Lymph % (Auto) 7.2 L, [place] % (Auto) 1.3, Eos % (Auto) 0.0, Baso % (Auto) 0.1, Absolute Neuts (auto) 7.3, Absolute Lymphs (auto) 0.57 L, Nucleated RBC % 0, Sodium 130 L, Potassium 6.2 H*, Chloride 90 L, Carbon Dioxide 15.6 L, Anion Gap 24 H, BUN 38 H, Creatinine 1.63 H, Estim Creat Clear Calc 45.78 L, Est GFR (MDRD) Non-Af 47 L, BUN/Creatinine Ratio 23.0 H, Glucose 896 H*, Calcium 9.1, Magnesium 2.8 H, Total Bilirubin 0.99, AST 13, ALT 20, Alkaline Phosphatase 94, Troponin T High Sens 11, Total Protein 7.8, Albumin 4.4, Globulin 3.4, Albumin/Globulin Ratio 1.3, b-Hydroxybutyric mmol/L 5.8 H 05/12/25 19:44: Urine Color Straw, Urine Clarity Clear, Urine pH 6.0, Ur Specific [place] 1.010, Urine Protein Negative, Urine Glucose (UA) 1000 H, Urine Ketones 50 H, Urine Occult Blood Negative, Urine Nitrite Negative, Urine Bilirubin Negative, Urine Urobilinogen Normal, Ur Leukocyte Esterase Negative, Urine RBC 0 SEEN, Urine WBC 0 SEEN, Ur Squamous Epith Cells 0 SEEN, Urine Bacteria 0 SEEN, Urine Mucus 0 SEEN ABG Data ABG results: ABG 05/12/25 19:35 Specimen Type AMY Sample Site Not entered VBG pH 7.32 VBG pO2 66 H VBG HCO3 17 L VBG Total CO2 18 L VBG O2 Sat (Calc) 91 H VBG Base Excess -9 L POC Mix VBG pCO2 Pt Tmp 33.3 L O2 Delivery Device Room Air Assessment & Plan Assessment/Plan (1) DKA (diabetic ketoacidoses): QUALIFIERS: Diabetes mellitus complication detail: without coma Diabetes mellitus type: type 2 Qualified Code(s): E11.10 - Type 2 diabetes mellitus with ketoacidosis without coma (2) Medical non-compliance: (3) MAGALIS (acute kidney injury): (4) Uncontrolled hypertension: (5) DM type 2 causing complication: PLAN: Plan 1. Critical hyperglycemia of 896 mg/dL with an elevated beta-hydroxybutyric acid of 5.8 mmol/L present on admission consistent with DKA with VBG revealing pH of 7.32 with VBG HCO3 of 17 mmol/L in the setting of known Medical Noncompliance - Admit to ICU for treatment under the DKA protocol primarily consisting of IV insulin drip and vigorous volume resuscitation. Keep strict NPO. Check UDS and DAYDAY. Give pantoprazole 40 mg IV daily for GI prophylaxis. Give ondansetron IV as needed for nausea and vomiting. Give acetaminophen HI as needed for pain or fever. 2. Suspected MAGALIS; with elevated serum creatinine of 1.63 mg/dL present on admission (up from his previous baseline of 1.16 mg/dL last admission) in addition to Hyperkalemia of 6.2 mmol/L present on admission due to #1 - Give vigorous IVF and recheck renal indices in AM to monitor for improvement. We will avoid potentially nephrotoxic medications. 3. Uncontrolled Hypertension with elevated blood pressure of 184/107 mmHg present on admission due to suspected combination of medical noncompliance and acute illness complicating #1 & #2 - Give hydralazine IV prn for systolic blood pressure > 160 mmHg. 4. DM-2; on metformin, glimepiride and insulin glargine 20U BID adding to the medical complexity of #1 - #3 - Keep NPO. Check FSBS q. 1 hour while on insulin drip. Check hemoglobin A1c to objectively evaluate quality of diabetic control. 5. Essential hypertension; on amlodipine and losartan - Hold scheduled oral antihypertensives in light of patient being n.p.o. for #1. 6. Hyperlipidemia; on atorvastatin - Restart statin when patient is cleared for oral intake. 7. History of muscle spasms; on prn cyclobenzaprine TID - Hold this agent until patient can tolerate oral intake. 8. DVT/GI prophylaxis - Enoxaparin 30 mg sq daily plus SCD's. Pantoprazole 40 mg IV daily. Total time: Approximately (but not less than) 75 minutes. Charges/Coding Visit Charges Inpatient E&M: 72655 Init Hosp L3
--- NOTE | 2025-05-12 21:05 | PCM.HP.STD ---
HPI - General HPI Narrative MARIYA MATHEWS, is a 64 M who presents [facility] Medical History Diabetes Home Medications ?Medication ?Instructions ?Recorded ?Last Taken ?Type amlodipine 10 mg tablet 10 mg PO DAILY 90 days #90 tabs 11/03/24 Unknown Rx atorvastatin 40 mg tablet 40 mg PO QHS #90 tabs 11/03/24 Unknown Rx glimepiride 2 mg tablet 2 mg PO DAILY #90 tabs 11/03/24 Unknown Rx insulin glargine 100 unit/mL (3 20 unit (0.2 mL) subcut BID #30 mL 11/03/24 Unknown Rx mL) subcutaneous pen (Lantus Solostar U-100 Insulin) losartan 25 mg tablet 25 mg PO DAILY #90 tabs 11/03/24 Unknown Rx metformin 500 mg tablet 500 mg PO BID #180 tabs 11/03/24 Unknown Rx pen needle, diabetic 31 gauge x #100 ea 11/03/24 Unknown Rx 5/ cyclobenzaprine 5 mg tablet 5 mg PO TID PRN muscle spasm 3 04/21/25 Unknown Rx days #9 tabs Allergy/AdvReac Type Severity Reaction Status Date / Time No Known Allergies Allergy Verified 04/21/25 09:14 Social History Smoking Status: Never smoker Vital Signs Vital Signs Vital Signs: 05/12/25 19:09 05/12/25 19:09 05/12/25 20:09 Temperature 98.1 F Temperature Source Oral Pulse Rate 83 77 Respiratory Rate 27 H 18 Respiratory Effort Short of Breath Respiratory Pattern Tachypnea Blood Pressure 184/107 H 165/110 H Blood Pressure Mean 132 128 Pulse Ox 100 Oxygen Delivery Method Room Air Weight Weight: 73.1 kg Body Mass Index (BMI) 23.8 Results Lab / Micro Data 05/12/25 19:15 05/12/25 19:15 Labs: Laboratory Results - last 24 hr 05/12/25 18:59: POC Glucose > 500 H* 05/12/25 19:15: WBC 8.0, RBC 4.60, Hgb 13.2, Hct 38.8 L, MCV 84.3, MCH 28.7, MCHC 34.0, RDW Std Deviation 35.7, RDW Coeff of Sarina 11.8, Plt Count 223, MPV 10.9, Immature Gran % (Auto) 0.300, Neut % (Auto) 91.1 H, Lymph % (Auto) 7.2 L, [place] % (Auto) 1.3, Eos % (Auto) 0.0, Baso % (Auto) 0.1, Absolute Neuts (auto) 7.3, Absolute Lymphs (auto) 0.57 L, Nucleated RBC % 0, Sodium 130 L, Potassium 6.2 H*, Chloride 90 L, Carbon Dioxide 15.6 L, Anion Gap 24 H, BUN 38 H, Creatinine 1.63 H, Estim Creat Clear Calc 45.78 L, Est GFR (MDRD) Non-Af 47 L, BUN/Creatinine Ratio 23.0 H, Glucose 896 H*, Calcium 9.1, Magnesium 2.8 H, Total Bilirubin 0.99, AST 13, ALT 20, Alkaline Phosphatase 94, Troponin T High Sens 11, Total Protein 7.8, Albumin 4.4, Globulin 3.4, Albumin/Globulin Ratio 1.3, b-Hydroxybutyric mmol/L 5.8 H 05/12/25 19:44: Urine Color Straw, Urine Clarity Clear, Urine pH 6.0, Ur Specific [place] 1.010, Urine Protein Negative, Urine Glucose (UA) 1000 H, Urine Ketones 50 H, Urine Occult Blood Negative, Urine Nitrite Negative, Urine Bilirubin Negative, Urine Urobilinogen Normal, Ur Leukocyte Esterase Negative, Urine RBC 0 SEEN, Urine WBC 0 SEEN, Ur Squamous Epith Cells 0 SEEN, Urine Bacteria 0 SEEN, Urine Mucus 0 SEEN ABG Data ABG results: ABG 05/12/25 19:35 Specimen Type AMY Sample Site Not entered VBG pH 7.32 VBG pO2 66 H VBG HCO3 17 L VBG Total CO2 18 L VBG O2 Sat (Calc) 91 H VBG Base Excess -9 L POC Mix VBG pCO2 Pt Tmp 33.3 L O2 Delivery Device Room Air
[2025-05-12] MEDS: Insulin Lispro 100 UNIT in 0.9% Normal Saline (100mL Bag) 99 ML CONT INF (21:13)
--- OUTSIDE RECORDS SUMMARY | 2025-05-12 21:31 | XMS RPT_ITS | CCD ---
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 64-year-old gentleman with past medical history of HTN, HLD, DM2 presents for evaluation of lumbar back pain. Patient does not speak Belizean and therefore official wreath and garland maker hand was used. Patient states yesterday he was [...] intact Psych: Cooperative, appropriate mood and affect [facility] Medical History (Updated 04/21/25 @ 11:07 by [...] lumbar back pain. Patient does not speak Bel[place]an and therefore official wreath and garland maker hand was used. Patient states yesterday he was [...] improved with (more content not included)... Normal [facility] Spine Lumbar without Contras ton 04-21-2025 Spine Lumbar without Contrast [facility] Imaging Services [address] [place], [place] [address] Spine Lumbar without Contrast MR#: [id number] Acct: [id number] Name: MARIYA MATHEWS Rep #: [id number] : 1960 M 64 From: Magno Markham MD PCP: Care Physician,No Primary Status: REG ER Study: Spine Lumbar without Contrast Date of Exam: Exam# [id number] Ordering Dr: Barrera Fermin DO EXAM: CT [...] 2. Degenerative changes as above. Reading Location: [facility] CC: Dr. Everardo Fermin, DO; No Primary Care Physician Solar Applications Development Engineer: Signed Normal [facility] Basic Metabolic Profile (BMP )on 11-04-2024 BUN Normal 7-18 [facility] Comment on above: Result Comment: Canc elled via OM: Order cancelled - Patient discharged Performed By: #### L 100.0100, L500.2500 ####[facility] [address] [facility] [address] BUN/CRE Normal 10-20 [facility] Comment on above: Result Comment: Canc elled via OM: Order cancelled - Patient discharged Performed By: #### L 100.0100, L500.2500 ####[facility] [address] [place], [address] CA,Total Normal 8.5-10.1 [facility] Comment on above: Result Comment: Canc elled via OM: Order cancelled - Patient discharged Performed By: #### L 100.0100, L500.2500 ####[facility] [address] [place], [address] CL Normal 98-107 [facility] Comment on above: Result Comment: Canc elled via OM: Order cancelled - Patient discharged Performed By: #### L 100.0100, L500.2500 ####[facility] [address] [place], [address] CO2 Normal 21.0-32.0 [facility] Comment on above: Result Comment: Canc elled via OM: Order cancelled - Patient discharged Performed By: #### L 100.0100, L500.2500 ####[facility] [address] [place], [address] CREAT,SERUM Normal 0.70-1.30 [facility] Comment on above: Result Comment: Canc elled via OM: Order cancelled - Patient discharged Performed By: #### L 100.0100, L500.2500 ####[facility] [address] [place], [address] EST GFR Normal >60 [facility] Comment on above: Result Comment: Canc elled via OM: Order cancelled - Patient discharged Performed By: #### L 100.0100, L500.2500 ####[facility] [address] [place], [address] EST GFR - AA Normal >60 [facility] Comment on above: Result Comment: Canc elled via OM: Order cancelled - Patient discharged Performed By: #### L 100.0100, L500.2500 ####[facility] [address] [place], [address] GAP Normal 5-15 [facility] Comment on above: Result Comment: Canc elled via OM: Order cancelled - Patient discharged Performed By: #### L 100.0100, L500.2500 ####[facility] [address] [place], [address] GLU Normal 74-106 [facility] Comment on above: Result Comment: Canc elled via OM: Order cancelled - Patient discharged Performed By: #### L 100.0100, L500.2500 ####[facility] [address] [place], [address] Potassium Normal 3.5-5.1 [facility] Comment on above: Result Comment: Canc elled via OM: Order cancelled - Patient discharged Performed By: #### L 100.0100, L500.2500 ####[facility] [address] [place], [address] Basic Metabolic Profile (BMP) Normal 136-145 [facility] Comment on above: Result Comment: Canc elled via OM: Order cancelled - Patient discharged Performed By: #### L 100.0100, L500.2500 ####[facility] [address] [place], [address] CBC W/Diff, Automatedon 01-2 Absolute Neut Normal 2.0-7.7 [facility] Comment on above: Result Comment: Canc elled via OM: Order cancelled - Patient discharged Performed By: #### L 100.0100, L500.2500 ####[facility] [address] [place], [address] HCT Normal 40-54 [facility] Comment on above: Result Comment: Canc elled via OM: Order cancelled - Patient discharged Performed By: #### L 100.0100, L500.2500 ####[facility] [address] [place], [address] HGB Normal 13.0-16.5 [facility] Comment on above: Result Comment: Canc elled via OM: Order cancelled - Patient discharged Performed By: #### L 100.0100, L500.2500 ####[facility] [address] [place], [address] MCH Normal 27.0-32.0 [facility] Comment on above: Result Comment: Canc elled via OM: Order cancelled - Patient discharged Performed By: #### L 100.0100, L500.2500 ####[facility] [address] [place], [address] MCHC Normal 32-36 [facility] Comment on above: Result Comment: Canc elled via OM: Order cancelled - Patient discharged Performed By: #### L 100.0100, L500.2500 ####[facility] [address] [place], [address] MCV Normal 80-94 [facility] Comment on above: Result Comment: Canc elled via OM: Order cancelled - Patient discharged Performed By: #### L 100.0100, L500.2500 ####[facility] [address] [place], [address] NEUT% Normal 47-70 [facility] Comment on above: Result Comment: Canc elled via OM: Order cancelled - Patient discharged Performed By: #### L 100.0100, L500.2500 ####[facility] [address] [place], [address] PLT Normal 150-450 [facility] Comment on above: Result Comment: Canc elled via OM: Order cancelled - Patient discharged Performed By: #### L 100.0100, L500.2500 ####[facility] [address] [place], [address] RBC Normal 4.6-6.2 [facility] Comment on above: Result Comment: Canc elled via OM: Order cancelled - Patient discharged Performed By: #### L 100.0100, L500.2500 ####[facility] [address] [place], [address] RDW CV Normal 11.6-14.6 [facility] Comment on above: Result Comment: Canc elled via OM: Order cancelled - Patient discharged Performed By: #### L 100.0100, L500.2500 ####[facility] [address] [place], [address] RDW SD Normal 35.1-43.9 [facility] Comment on above: Result Comment: Canc elled via OM: Order cancelled - Patient discharged Performed By: #### L 100.0100, L500.2500 ####[facility] [address] [place], [address] WBC Normal 4.4-11.0 [facility] Comment on above: Result Comment: Canc elled via OM: Order cancelled - Patient discharged Performed By: #### L 100.0100, L500.2500 ####[facility] [address] [place], [address] Basic Metabolic Profile (BMP )on 11-03-2024 BUN/CRE 15.5 RATIO Normal 10-20 [facility] Comment on above: Performed By: #### L 500.2500, L100.0100 #### [facility] [address] [place], [address] CA,Total 8.9 mg/dL Normal 8.5-10.1 [facility] Comment on above: Performed By: #### L 500.2500, L100.0100 #### [facility] [address] [place], [address] Chloride [Moles/Vol] 105 mmol/L Normal 98-107 [facility] Comment on above: Performed By: #### L 500.2500, L100.0100 #### [facility] [address] [place], [address] CO2 [Moles/Vol] 23.0 mmol/L Normal 21.0-32.0 [facility] Comment on above: Performed By: #### L 500.2500, L100.0100 #### [facility] [address] [place], [address] Creatinine [Mass/Vol] 1.16 mg/dL Normal 0.70-1.30 [facility] Comment on above: Result Comment: The validity of the calculated GFR GFRAA in patients over 70 years has not been determined. Clinical correlation is essential. Performed By: #### L 500.2500, L100.0100 #### [facility] [address] [place], [address] ECRCL 63.06 ml/min Normal [facility] Comment on above: Performed By: #### L 500.2500, L100.0100 #### [facility] [address] [place], [address] EST GFR - AA 82 mL/min Normal >60 [facility] Comment on above: Result Comment: Afri can [place]se GFR Calc Performed By: #### L 500.2500, L100.0100 #### [facility] [address] [place], [address] GAP 9 Normal 5-15 [facility] Comment on above: Performed By: #### L 500.2500, L100.0100 #### [facility] [address] [place], [address] GFR/1.73 sq M.predicted among non-blacks MDRD (S/P/Bld) [Vol rate/Area] 67 mL/min/{1.73_m2} Normal >60 [facility] Comment on above: Result Comment: Non- GFR Calc Performed By: #### L 500.2500, L100.0100 #### [facility] [address] [place], [address] Glucose [Mass/Vol] 304 mg/dL High 74-106 [facility] Comment on above: Result Comment: Gluc ose result greater than or equal to 200 mg/dL suggests DIABETES MELLITUS per A.D.A. criteria. Performed By: #### L 500.2500, L100.0100 #### [facility] [address] [place], [address] Potassium [Moles/Vol] 3.7 mmol/L Normal 3.5-5.1 [facility] Comment on above: Performed By: #### L 500.2500, L100.0100 #### [facility] [address] [place], [address] Sodium [Moles/Vol] 137 mmol/L Normal 136-145 [facility] Comment on above: Performed By: #### L 500.2500, L100.0100 #### [facility] [address] [place], [address] Urea nitrogen [Mass/Vol] 18 mg/dL Normal 7-18 [facility] Comment on above: Performed By: #### L 500.2500, L100.0100 #### [facility] [address] [place], [address] Bedside Glucoseon 11-03-2024 FINGERSTICK GLU 293 mg/dL High 74-106 [facility] Comment on above: Result Comment: KRISTI SOTO OF PATIENT CARE PER NURSING PROTOCOL Performed By: #### L 501.0100 #### [facility] [address] [place], [address] CBC W/Diff, Automatedon 10-13 Absolute Lymph 2.27 X10 3/uL Normal 0.83-4.51 [facility] Comment on above: Performed By: #### L 500.2500, L100.0100 #### [facility] [address] [place], [address] Absolute Neut 6.0 X10 3/uL Normal 2.0-7.7 [facility] Comment on above: Performed By: #### L 500.2500, L100.0100 #### [facility] [address] [place], [address] Basophils/100 WBC (Bld) 0.1 % Normal 0-1 [facility] Comment on above: Performed By: #### L 500.2500, L100.0100 #### [facility] [address] [place], [address] Eosinophils/100 WBC (Bld) 0.7 % Normal 0-5 [facility] Comment on above: Performed By: #### L 500.2500, L100.0100 #### [facility] [address] [place], [address] Erythrocyte distribution width (RBC) [Ratio] 11.2 % Low 11.6-14.6 [facility] Comment on above: Performed By: #### L 500.2500, L100.0100 #### [facility] [address] [place], [address] Hematocrit (Bld) [Volume fraction] 40.1 % Normal 40-54 [facility] Comment on above: Performed By: #### L 500.2500, L100.0100 #### [facility] [address] [place], [address] Hemoglobin (Bld) [Mass/Vol] 13.2 g/dL Normal 13.0-16.5 [facility] Comment on above: Performed By: #### L 500.2500, L100.0100 #### [facility] [address] [place], [address] IG% 0.200 Normal 0.0-0.9 [facility] Comment on above: Result Comment: IG% - Immature Granulocytes (promyelocytes, myelocytes and metamyelocytes) > 1% indicates that a LEFT SHIFT is Present. Performed By: #### L 500.2500, L100.0100 #### [facility] [address] [facility] [place], [address] Lymphocytes/100 WBC (Bld) 25.6 % Normal 19-41 [facility] Comment on above: Performed By: #### L 500.2500, L100.0100 #### [facility] [address] [place], [address] MCH (RBC) [Entitic mass] 27.3 pg Normal 27.0-32.0 [facility] Comment on above: Performed By: #### L 500.2500, L100.0100 #### [facility] [address] [place], [address] MCHC (RBC) [Mass/Vol] 32.9 g/dL Normal 32-36 [facility] Comment on above: Performed By: #### L 500.2500, L100.0100 #### [facility] [address] [place], [address] MCV (RBC) [Entitic vol] 83.0 fL Normal 80-94 [facility] Comment on above: Performed By: #### L 500.2500, L100.0100 #### [facility] [address] [place], [address] Monocytes/100 WBC (Bld) 5.3 % Normal 0-10 [facility] Comment on above: Performed By: #### L 500.2500, L100.0100 #### [facility] [address] [place], [address] Neutrophils/100 WBC (Bld) 68.1 % Normal 47-70 [facility] Comment on above: Performed By: #### L 500.2500, L100.0100 #### [facility] [address] [place], [address] Nucleated RBC (Bld) [#/Vol] 0 10*3/uL Normal 0-5 [facility] Comment on above: Performed By: #### L 500.2500, L100.0100 #### [facility] [address] [place], [address] Platelet mean volume (Bld) [Entitic vol] 10.9 fL Normal 6.2-12.0 [facility] Comment on above: Performed By: #### L 500.2500, L100.0100 #### [facility] [address] [place], [address] Platelets (Bld) [#/Vol] 189 10*3/uL Normal 150-450 [facility] Comment on above: Performed By: #### L 500.2500, L100.0100 #### [facility] [address] [place], [address] RBC (Bld) [#/Vol] 4.83 10*6/uL Normal 4.6-6.2 [facility] Comment on above: Performed By: #### L 500.2500, L100.0100 #### [facility] [address] [place], [address] RDW SD 34.2 fl Low 35.1-43.9 [facility] Comment on above: Performed By: #### L 500.2500, L100.0100 #### [facility] [address] [place], [address] WBC (Bld) [#/Vol] 8.9 10*3/uL Normal 4.4-11.0 [facility] Comment on above: Performed By: #### L 500.2500, L100.0100 #### [facility] [address] [place], [address] Lipaseon 11-03-2024 Lipase [Catalytic activity/Vol] 74 U/L Normal 13-75 [facility] Comment on above: Result Comment: Mckinley chung note: LIPASE revised reference range effective 23. New Lipase methodology. Expected to produce lower values than the previous assay method. NEW Reference Range: 13 - 75 U/L Performed By: #### L 501.2450 ####[facility] [address] [place], [address] Basic Metabolic Profile (BMP )on 11-02-2024 BUN/CRE 16.8 RATIO Normal 10-20 [facility] Comment on above: Performed By: #### L 500.2500 ####[facility] [address] [place], [address] CA,Total 8.8 mg/dL Normal 8.5-10.1 [facility] Comment on above: Performed By: #### L 500.2500 ####[facility] [address] [place], [address] Chloride [Moles/Vol] 109 mmol/L High 98-107 [facility] Comment on above: Performed By: #### L 500.2500 ####[facility] [address] [place], [address] CO2 [Moles/Vol] 26.0 mmol/L Normal 21.0-32.0 [facility] Comment on above: Performed By: #### L 500.2500 ####[facility] [address] [place], [address] Creatinine [Mass/Vol] 1.19 mg/dL Normal 0.70-1.30 [facility] Comment on above: Result Comment: The validity of the calculated GFR GFRAA in patients over 70 years has not been determined. Clinical correlation is essential. Performed By: #### L 500.2500 ####[facility] [address] [place], [address] ECRCL 61.47 ml/min Normal [facility] Comment on above: Performed By: #### L 500.2500 ####[facility] [address] [place], [address] EST GFR - AA 79 mL/min Normal >60 [facility] Comment on above: Result Comment: Afri can [place] GFR Calc Performed By: #### L 500.2500 ####[facility] [address] [place], [address] GAP 7 Normal 5-15 [facility] Comment on above: Performed By: #### L 500.2500 ####[facility] [address] [place], [address] GFR/1.73 sq M.predicted among non-blacks MDRD (S/P/Bld) [Vol rate/Area] 65 mL/min/{1.73_m2} Normal >60 [facility] Comment on above: Result Comment: Non- GFR Calc Performed By: #### L 500.2500 ####[facility] [address] [place], [address] Glucose [Mass/Vol] 244 mg/dL High 74-106 [facility] Comment on above: Result Comment: Gluc ose result greater than or equal to 200 mg/dL suggests DIABETES MELLITUS per A.D.A. criteria. Performed By: #### L 500.2500 ####[facility] [address] [place], [address] Potassium [Moles/Vol] 4.0 mmol/L Normal 3.5-5.1 [facility] Comment on above: Performed By: #### L 500.2500 ####[facility] [address] [place], [address] Sodium [Moles/Vol] 142 mmol/L Normal 136-145 [facility] Comment on above: Performed By: #### L 500.2500 ####[facility] [address] [place], [address] Urea nitrogen [Mass/Vol] 20 mg/dL High 7-18 [facility] Comment on above: Performed By: #### L 500.2500 ####[facility] [address] [place], [address] BUN Normal 7-18 [facility] Comment on above: Order Comment: Call MD with results STAT Result Comment: Canc elled via OM: MD Ordered Performed By: #### L 501.0100 #### [facility] [address] [place], [address] BUN/CRE Normal 10-20 [facility] Comment on above: Order Comment: Call MD with results STAT Result Comment: Canc elled via OM: MD Ordered Performed By: #### L 501.0100 #### [facility] [address] [place], [address] CA,Total Normal 8.5-10.1 [facility] Comment on above: Order Comment: Call MD with results STAT Result Comment: Canc elled via OM: MD Ordered Performed By: #### L 501.0100 #### [facility] [address] [place], [address] CL Normal 98-107 [facility] Comment on above: Order Comment: Call MD with results STAT Result Comment: Canc elled via OM: MD Ordered Performed By: #### L 501.0100 #### [facility] [address] [place], [address] CO2 Normal 21.0-32.0 [facility] Comment on above: Order Comment: Call MD with results STAT Result Comment: Canc elled via OM: MD Ordered Performed By: #### L 501.0100 #### [facility] [address] [place], [address] CREAT,SERUM Normal 0.70-1.30 [facility] Comment on above: Order Comment: Call MD with results STAT Result Comment: Canc elled via OM: MD Ordered Performed By: #### L 501.0100 #### [facility] [address] [place], [address] EST GFR Normal >60 [facility] Comment on above: Order Comment: Call MD with results STAT Result Comment: Canc elled via OM: MD Ordered Performed By: #### L 501.0100 #### [facility] [address] [place], [address] EST GFR - AA Normal >60 [facility] Comment on above: Order Comment: Call MD with results STAT Result Comment: Canc elled via OM: MD Ordered Performed By: #### L 501.0100 #### [facility] [address] [place], [address] GAP Normal 5-15 [facility] Comment on above: Order Comment: Call MD with results STAT Result Comment: Canc elled via OM: MD Ordered Performed By: #### L 501.0100 #### [facility] [address] [place], [address] GLU Normal 74-106 [facility] Comment on above: Order Comment: Call MD with results STAT Result Comment: Canc elled via OM: MD Ordered Performed By: #### L 501.0100 #### [facility] [address] [place], [address] Potassium Normal 3.5-5.1 [facility] Comment on above: Order Comment: Call MD with results STAT Result Comment: Canc elled via OM: MD Ordered Performed By: #### L 501.0100 #### [facility] [address] [place], [address] Basic Metabolic Profile (BMP) Normal 136-145 [facility] Comment on above: Order Comment: Call MD with results STAT Result Comment: Canc elled via OM: MD Ordered Performed By: #### L 501.0100 #### [facility] [address] [place], [address] Bedside Glucoseon 11-02-2024 FINGERSTICK GLU 171 mg/dL High 74-106 [facility] Comment on above: Result Comment: KRISTI GEMENT OF PATIENT CARE PER NURSING PROTOCOL Performed By: #### L 501.0100 #### [facility] [address] [place], [address] FINGERSTICK GLU 195 mg/dL High 74-106 [facility] Comment on above: Result Comment: KRISTI GEMENT OF PATIENT CARE PER NURSING PROTOCOL Performed By: #### L 501.0100 #### [facility] [address] [place], [address] FINGERSTICK GLU 237 mg/dL High 74-106 [facility] Comment on above: Result Comment: KRISTI GEMENT OF PATIENT CARE PER NURSING PROTOCOL Performed By: #### L 501.080 ####[facility] [address] [place], [address] FINGERSTICK GLU 241 mg/dL High 74-106 [facility] Comment on above: Result Comment: KRISTI GEMENT OF PATIENT CARE PER NURSING PROTOCOL Performed By: #### L 501.080 ####[facility] [address] [place], [address] CBC W/Diff, Automatedon 10-13 Absolute Lymph 2.12 X10 3/uL Normal 0.83-4.51 [facility] [facility] Comment on above: Performed By: #### L 501.0100 #### [facility] [address] [place], [address] Absolute Neut 8.9 X10 3/uL High 2.0-7.7 [facility] Comment on above: Performed By: #### L 501.0100 #### [facility] [address] [place], [address] Basophils/100 WBC (Bld) 0.3 % Normal 0-1 [facility] Comment on above: Performed By: #### L 501.0100 #### [facility] [address] [place], [address] Eosinophils/100 WBC (Bld) 0.6 % Normal 0-5 [facility] Comment on above: Performed By: #### L 501.0100 #### [facility] [address] [place], [address] Erythrocyte distribution width (RBC) [Ratio] 11.3 % Low 11.6-14.6 [facility] Comment on above: Performed By: #### L 501.0100 #### [facility] [address] [place], [address] Hematocrit (Bld) [Volume fraction] 39.4 % Low 40-54 [facility] Comment on above: Performed By: #### L 501.0100 #### [facility] [address] [place], [address] Hemoglobin (Bld) [Mass/Vol] 13.2 g/dL Normal 13.0-16.5 [facility] Comment on above: Performed By: #### L 501.0100 #### [facility] [address] [place], [address] IG% 0.300 Normal 0.0-0.9 [facility] Comment on above: Result Comment: IG% - Immature Granulocytes (promyelocytes, myelocytes and metamyelocytes) > 1% indicates that a LEFT SHIFT is Present. Performed By: #### L 501.0100 #### [facility] [address] [place], [address] Lymphocytes/100 WBC (Bld) 18.2 % Low 19-41 [facility] Comment on above: Performed By: #### L 501.0100 #### [facility] [address] [place], [address] MCH (RBC) [Entitic mass] 28.1 pg Normal 27.0-32.0 [facility] Comment on above: Performed By: #### L 501.0100 #### [facility] [address] [place], [address] MCHC (RBC) [Mass/Vol] 33.5 g/dL Normal 32-36 [facility] Comment on above: Performed By: #### L 501.0100 #### [facility] [address] [place], [address] MCV (RBC) [Entitic vol] 84.0 fL Normal 80-94 [facility] Comment on above: Performed By: #### L 501.0100 #### [facility] [address] [place], [address] Monocytes/100 WBC (Bld) 4.4 % Normal 0-10 [facility] Comment on above: Performed By: #### L 501.0100 #### [facility] [address] [place], [address] Neutrophils/100 WBC (Bld) 76.2 % High 47-70 [facility] Comment on above: Performed By: #### L 501.0100 #### [facility] [address] [place], [address] Nucleated RBC (Bld) [#/Vol] 0 10*3/uL Normal 0-5 [facility] Comment on above: Performed By: #### L 501.0100 #### [facility] [address] [place], [address] Platelet mean volume (Bld) [Entitic vol] 11.2 fL Normal 6.2-12.0 [facility] Comment on above: Performed By: #### L 501.0100 #### [facility] [address] [place], [address] Platelets (Bld) [#/Vol] 198 10*3/uL Normal 150-450 [facility] Comment on above: Performed By: #### L 501.0100 #### [facility] [address] [place], [address] RBC (Bld) [#/Vol] 4.69 10*6/uL Normal 4.6-6.2 [facility] Comment on above: Performed By: #### L 501.0100 #### [facility] [address] [place], [address] RDW SD 34.6 fl Low 35.1-43.9 [facility] Comment on above: Performed By: #### L 501.0100 #### [facility] [address] [place], [address] WBC (Bld) [#/Vol] 11.7 10*3/uL High 4.4-11.0 [facility] Comment on above: Performed By: #### L 501.0100 #### [facility] [address] [place], [address] Hemoglobin A1con 11-02-2024 HbA1c (Bld) [Mass fraction] 10.3 % High 3.8-5.6 [facility] Comment on above: Result Comment: Norm al < 5.7 % Prediabetic 5.7 - 6.4 % Diabetic >or= 6.5 % Please note range changes. Performed By: #### L 501.0100 #### [facility] [address] [place], [address] T4 Free Directon 11-02-2024 T4 FREE DIRECT 0.99 ng/dL Normal 0.76-1.46 [facility] Comment on above: Performed By: #### L 501.0100 #### [facility] [address] [place], [address] Thyroid Stim Hormone (TSH)on 11-02-2024 TSH 0.501 uIU/mL Normal 0.358-3.740 [facility] Comment on above: Performed By: #### L 501.0100 #### [facility] [address] [place], [address] Acetone Serumon 11-01-2024 ACETONE SERUM SMALL Abnormal NEG [facility] Comment on above: Order Comment: Comme nts: If not done in the EDComments: Add to ER Lab draw Performed By: #### L 501.6900, L501.7300 ####[facility] [address] [place], [address] Basic Metabolic Profile (BMP )on 11-01-2024 BUN Normal 7-18 [facility] Comment on above: Order Comment: Call MD with results STAT Result Comment: Roosevelt murray via OM: Ordered Performed By: #### L 500.2500 ####[facility] [address] [place], [address] Performed By: #### L 500.2500 #### [facility] [address] [place], [address] BUN/CRE Normal 10-20 [facility] Comment on above: Order Comment: Call MD with results STAT Result Comment: Canc elled via OM: MD Ordered Performed By: #### L 500.2500 ####[facility] [address] [place], [address] Performed By: #### L 500.2500 #### [facility] [address] [place], [address] CA,Total Normal 8.5-10.1 [facility] Comment on above: Order Comment: Call MD with results STAT Result Comment: Canc elled via OM: MD Ordered Performed By: #### L 500.2500 ####[facility] [address] [place], [address] Performed By: #### L 500.2500 #### [facility] [address] [place], [address] CL Normal 98-107 [facility] Comment on above: Order Comment: Call MD with results STAT Result Comment: Canc elled via OM: MD Ordered Performed By: #### L 500.2500 ####[facility] [address] [place], [address] Performed By: #### L 500.2500 #### [facility] [address] [place], [address] CO2 Normal 21.0-32.0 [facility] Comment on above: Order Comment: Call MD with results STAT Result Comment: Canc elled via OM: MD Ordered Performed By: #### L 500.2500 ####[facility] [address] [place], [address] Performed By: #### L 500.2500 #### [facility] [address] [place], [address] CREAT,SERUM Normal 0.70-1.30 [facility] Comment on above: Order Comment: Call MD with results STAT Result Comment: Canc elled via OM: MD Ordered Performed By: #### L 500.2500 ####[facility] [address] [place], [address] Performed By: #### L 500.2500 #### [facility] [address] [place], [address] EST GFR Normal >60 [facility] Comment on above: Order Comment: Call MD with results STAT Result Comment: Canc elled via OM: MD Ordered Performed By: #### L 500.2500 ####[facility] [address] [place], [address] Performed By: #### L 500.2500 #### [facility] [address] [place], [address] EST GFR - AA Normal >60 [facility] Comment on above: Order Comment: Call MD with results STAT Result Comment: Canc elled via OM: MD Ordered Performed By: #### L 500.2500 ####[facility] [address] [place], [address] Performed By: #### L 500.2500 #### [facility] [address] [place], [address] GAP Normal 5-15 [facility] Comment on above: Order Comment: Call MD with results STAT Result Comment: Canc elled via OM: MD Ordered Performed By: #### L 500.2500 ####[facility] [address] [place], [address] Performed By: #### L 500.2500 #### [facility] [address] [place], [address] GLU Normal 74-106 [facility] Comment on above: Order Comment: Call MD with results STAT Result Comment: Canc elled via OM: MD Ordered Performed By: #### L 500.2500 ####[facility] [address] [place], [address] Performed By: #### L 500.2500 #### [facility] [address] [place], [address] Potassium Normal 3.5-5.1 [facility] Comment on above: Order Comment: Call with results STAT Result Comment: Roosevelt murray via OM: MD Ordered Performed By: #### L 500.2500 ####[facility] [address] [place], [address] Performed By: #### L 500.2500 #### [facility] [address] [place], [address] Basic Metabolic Profile (BMP) Normal 136-145 [facility] Comment on above: Order Comment: Call with results STAT Result Comment: Roosevelt murray via OM: MD Ordered Performed By: #### L 500.2500 ####[facility] [address] [place], [address] Performed By: #### L 500.2500 #### [facility] [address] [place], [address] BUN/CRE 17.8 RATIO Normal 10-20 [facility] Comment on above: Order Comment: Call with results STAT Performed By: #### L 500.2500 ####[facility] [address] [place], [address] CA,Total 9.1 mg/dL Normal 8.5-10.1 [facility] Comment on above: Order Comment: Call with results STAT Performed By: #### L 500.2500 ####[facility] [address] [place], [address] Chloride [Moles/Vol] 114 mmol/L High 98-107 [facility] Comment on above: Order Comment: Call with results STAT Performed By: #### L 500.2500 ####[facility] [address] [place], [address] CO2 [Moles/Vol] 24.0 mmol/L Normal 21.0-32.0 [facility] Comment on above: Order Comment: Call MD with results STAT Performed By: #### L 500.2500 ####[facility] [address] [place], [address] Creatinine [Mass/Vol] 1.69 mg/dL High 0.70-1.30 [facility] Comment on above: Order Comment: Call MD with results STAT Result Comment: The validity of the calculated GFR GFRAA in patients over 70 years has not been determined. Clinical correlation is essential. Performed By: #### L 500.2500 ####[facility] [address] [place], [address] ECRCL 43.28 ml/min Normal [facility] Comment on above: Order Comment: Call MD with results STAT Performed By: #### L 500.2500 ####[facility] [address] [place], [address] EST GFR - AA 53 mL/min Low >60 [facility] Comment on above: Order Comment: Call MD with results STAT Result Comment: Afri can [place] GFR Calc Performed By: #### L 500.2500 ####[facility] [address] [place], [address] GAP 7 Normal 5-15 [facility] Comment on above: Order Comment: Call MD with results STAT Performed By: #### L 500.2500 ####[facility] [address] [place], [address] GFR/1.73 sq M.predicted among non-blacks MDRD (S/P/Bld) [Vol rate/Area] 44 mL/min/{1.73_m2} Low >60 [facility] Comment on above: Order Comment: Call MD with results STAT Result Comment: Non- GFR Calc Performed By: #### L 500.2500 ####[facility] [address] [place], [address] Glucose [Mass/Vol] 339 mg/dL High 74-106 [facility] Comment on above: Order Comment: Call MD with results STAT Result Comment: Gluc ose result greater than or equal to 200 mg/dL suggests DIABETES MELLITUS per A.D.A. criteria. Performed By: #### L 500.2500 ####[facility] [address] [place], [address] Potassium [Moles/Vol] 4.0 mmol/L Normal 3.5-5.1 [facility] Comment on above: Order Comment: Call MD with results STAT Performed By: #### L 500.2500 ####[facility] [address] [place], [address] Sodium [Moles/Vol] 145 mmol/L Normal 136-145 [facility] Comment on above: Order Comment: Call MD with results STAT Performed By: #### L 500.2500 ####[facility] [address] [place], [address] Urea nitrogen [Mass/Vol] 30 mg/dL High 7-18 [facility] Comment on above: Order Comment: Call MD with results STAT Performed By: #### L 500.2500 ####[facility] [address] [place], [address] BUN/CRE 18.8 RATIO Normal 10-20 [facility] Comment on above: Performed By: #### L 500.2500, L501.5200 ####[facility] [address] [place], [address] CA,Total 9.5 mg/dL Normal 8.5-10.1 [facility] Comment on above: Performed By: #### L 500.2500, L501.5200 ####[facility] [address] [place], [address] Chloride [Moles/Vol] 106 mmol/L Normal 98-107 [facility] Comment on above: Performed By: #### L 500.2500, L501.5200 ####[facility] [address] [place], [address] CO2 [Moles/Vol] 22.0 mmol/L Normal 21.0-32.0 [facility] Comment on above: Performed By: #### L 500.2500, L501.5200 ####[facility] [address] [place], [address] Creatinine [Mass/Vol] 1.76 mg/dL High 0.70-1.30 [facility] Comment on above: Result Comment: The validity of the calculated GFR GFRAA in patients over 70 years has not been determined. Clinical correlation is essential. Performed By: #### L 500.2500, L501.5200 ####[facility] [address] [place], [address] ECRCL 41.56 ml/min Normal [facility] Comment on above: Performed By: #### L 500.2500, L501.5200 ####[facility] [address] [place], [address] EST GFR - AA 50 mL/min Low >60 [facility] Comment on above: Result Comment: Afri can [place] GFR Calc Performed By: #### L 500.2500, L501.5200 ####[facility] [address] [place], [address] GAP 10 Normal 5-15 [facility] Comment on above: Performed By: #### L 500.2500, L501.5200 ####[facility] [address] [place], [address] GFR/1.73 sq M.predicted among non-blacks MDRD (S/P/Bld) [Vol rate/Area] 42 mL/min/{1.73_m2} Low >60 [facility] Comment on above: Result Comment: Non- GFR Calc Performed By: #### L 500.2500, L501.5200 ####[facility] [address] [place], [address] Glucose [Mass/Vol] 553 mg/dL Invalid Interpretation Code 74-106 [facility] Comment on above: Result Comment: Crit ical Result(s) Called at: 07:34:29 11/01/2024 by: Veronica Corrales to raman Buenrostro. Results read back by same. Glucose result greater than or equal to 200 mg/dL suggests DIABETES MELLITUS per A.D.A. criteria. Performed By: #### L 500.2500, L501.5200 ####[facility] [address] [place], [address] Potassium [Moles/Vol] 5.1 mmol/L Normal 3.5-5.1 [facility] Comment on above: Performed By: #### L 500.2500, L501.5200 ####[facility] [address] [place], [address] Sodium [Moles/Vol] 138 mmol/L Normal 136-145 [facility] Comment on above: Performed By: #### L 500.2500, L501.5200 ####[facility] [address] [place], [address] Urea nitrogen [Mass/Vol] 33 mg/dL High 7-18 [facility] Comment on above: Performed By: #### L 500.2500, L501.5200 ####[facility] [address] [place], [address] Bedside Glucoseon 11-01-2024 FINGERSTICK GLU 269 mg/dL High 74-106 [facility] Comment on above: Result Comment: KRISTI CHARLES OF PATIENT CARE PER NURSING PROTOCOL Performed By: #### L 501.0100 #### [facility] [address] [place], [address] FINGERSTICK GLU 439 mg/dL High [address] [place] [address] Comment on above: Result Comment: KRISTI GEMENT OF PATIENT CARE PER NURSING PROTOCOL Performed By: #### L 501.080 ####[facility] [address] [place], [address] FINGERSTICK GLU 239 mg/dL High [address] [place] [address] Comment on above: Result Comment: KRISTI GEMENT OF PATIENT CARE PER NURSING PROTOCOL Performed By: #### L 501.0100 #### [facility] [address] [place], [address] FINGERSTICK GLU 301 mg/dL High [address] [place] [address] Comment on above: Result Comment: KRISTI GEMENT OF PATIENT CARE PER NURSING PROTOCOL Performed By: #### L 501.080 ####[facility] [address] [place], [address] FINGERSTICK GLU 316 mg/dL High [address] [place] [address] Comment on above: Result Comment: KRISTI GEMENT OF PATIENT CARE PER NURSING PROTOCOL Performed By: #### L 501.080 #### [facility] [address] [place], [address] FINGERSTICK GLU 366 mg/dL High [address] [place] [address] Comment on above: Result Comment: KRISTI GEMENT OF PATIENT CARE PER NURSING PROTOCOL Performed By: #### L 501.080 ####[facility] [address] [place], [address] FINGERSTICK GLU 471 mg/dL Invalid Interpretation Code [address] [place] [address] Comment on above: Result Comment: Dr Faye casas Followed MANAGEMENT OF PATIENT CARE PER NURSING PROTOCOL Performed By: #### L 501.080 ####[facility] [address] [place], [address] FINGERSTICK GLU > 500 Invalid Interpretation Code [address] [place] [address] Comment on above: Result Comment: Dr Faye casas Followed MANAGEMENT OF PATIENT CARE PER NURSING PROTOCOL Performed By: #### L 501.080 ####[facility] [address] [place], [address] M100.677on 11-01-2024 M100.677 Negative Normal [facility] Comment on above: Performed By: #### M 100.677 ####[facility] [address] [place], [address] Magnesiumon 11-01-2024 Magnesium [Mass/Vol] 3.2 mg/dL High 1.6-2.6 [facility] Comment on above: Performed By: #### L 500.2500, L501.5200 ####[facility] [address] [place], [address] Osmolality, Serumon 11-01-19 25 OSMOLALITY,SER 352 mOsm/KG High 280-301 [facility] Comment on above: Order Comment: Comme nts: If not done in the EDComments: Add to ER Lab draw Performed By: #### L 501.6900, L501.7300 ####[facility] [address], [address] 12 Lead EKGon 10-31-2024 12 Lead EKG [facility] [address] [place] [address] 12 Lead EKG 10/31/242021 MR#: [id number] Acct: [id number] Name: MARIYA MATHEWS Rep #: [id number] : 1960 63 From: Shabana Sorenson MD Attending Dr: Dr. Fernando Hatfield MD Status: DIS IN Ordering Dr: Justice Cabrera DO Date: 10/31/24 Location: [facility] Sex: M AA Admitted: 10/31/24 Test Reason [...] Abnormal ECG Confirmed by SANTOSH GEORGE, ANIYAH ([id number]), tape editor DHAVAL MURGUIA ([id number]) on 11/07/2024 2:21:37 PM Referred By: Confirmed By: ANIYAH SORENSON MD 11/07/24 1421 Date Shabana Sorenson MD CC: Dr. Fernando Hatfield MD; Dr. Justice Cabrera DO; No Primary Care Physician Signed Normal [facility] Abdomen/Pelvis without Conto n 10-31-2024 Abdomen/Pelvis without Cont [facility] Imaging Services [address] [place] [address] Abdomen/Pelvis without Cont MR#: [id number] Acct: [id number] Name: MARIYA MATHEWS Rep #: [id number] : 1960 M 63 From: Dayne infante DO PCP: Care Physician,No Primary Status: REG ER Study: Abdomen/Pelvis without Cont Date of Exam: 10/13 Exam# [id number] Ordering Dr: Justice Cabrera DO -[id number] EXAM: CT ABDOMEN AND PELVIS WITHOUT [...] Justice Cabrera DO; No Primary Care Physician [employer]: Signed Normal [facility] Acetone Serumon 10-31-2024 ACETONE SERUM Negative Normal NEG [facility] Comment on above: Performed By: #### L 501.6900 #### [facility] [address] [place], [place], [address] Bedside Glucoseon 10-31-2024 FINGERSTICK GLU > 500 Invalid Interpretation Code 91-106 [facility] Comment on above: Result Comment: Dr Faye casas Followed MANAGEMENT OF PATIENT CARE PER NURSING PROTOCOL Performed By: #### L 501.6900 #### [facility] [address] [place], [address] CBC W/Diff, Automatedon 01-2 0-5 Absolute Lymph 1.52 X10 3/uL Normal 0.83-4.51 [facility] Comment on above: Performed By: #### L 501.6900 #### [facility] [address] [place], [address] Absolute Neut 9.1 X10 3/uL High 2.0-7.7 [facility] Comment on above: Performed By: #### L 501.6900 #### [facility] [address] [place], [address] Basophils/100 WBC (Bld) 0.2 % Normal 0-1 [facility] Comment on above: Performed By: #### L 501.6900 #### [facility] [address] [place], [address] Eosinophils/100 WBC (Bld) 0.0 % Normal 0-5 [facility] Comment on above: Performed By: #### L 501.6900 #### [facility] [address] [place], [address] Erythrocyte distribution width (RBC) [Ratio] 11.3 % Low 11.6-14.6 [facility] Comment on above: Performed By: #### L 501.6900 #### [facility] [address] [place], [address] Hematocrit (Bld) [Volume fraction] 45.2 % Normal 40-54 [facility] Comment on above: Performed By: #### L 501.6900 #### [facility] [address] [place], [address] Hemoglobin (Bld) [Mass/Vol] 15.4 g/dL Normal 13.0-16.5 [facility] Comment on above: Performed By: #### L 501.6900 #### [facility] [address] [place], [address] IG% 0.400 Normal 0.0-0.9 [facility] Comment on above: Result Comment: IG% - Immature Granulocytes (promyelocytes, myelocytes and metamyelocytes) > 1% indicates that a LEFT SHIFT is Present. Performed By: #### L 501.6900 #### [facility] [address] [place], [address] Lymphocytes/100 WBC (Bld) 13.7 % Low 19-41 [facility] Comment on above: Performed By: #### L 501.6900 #### [facility] [address] [place], [address] MCH (RBC) [Entitic mass] 28.2 pg Normal 27.0-32.0 [facility] Comment on above: Performed By: #### L 501.6900 #### [facility] [address] [place], [address] MCHC (RBC) [Mass/Vol] 34.1 g/dL Normal 32-36 [facility] Comment on above: Performed By: #### L 501.1740 #### [facility] [address] [place], [address] MCV (RBC) [Entitic vol] 82.6 fL Normal 80-94 [facility] Comment on above: Performed By: #### L 501.2840 #### [facility] [address] [place], [address] Monocytes/100 WBC (Bld) 3.4 % Normal 0-10 W [facility] Comment on above: Performed By: #### L 501.6090 #### [facility] [address] [place], [address] Neutrophils/100 WBC (Bld) 82.3 % High 47-70 [facility] Comment on above: Performed By: #### L 501.5120 #### [facility] [address] [place], [address] Nucleated RBC (Bld) [#/Vol] 0 10*3/uL Normal 0-5 [facility] Comment on above: Performed By: #### L 501.6900 #### [facility] [address] [place], [address] Platelet mean volume (Bld) [Entitic vol] 11.7 fL Normal 6.2-12.0 [facility] Comment on above: Performed By: #### L 501.6900 #### [facility] [address] [place], [address] Platelets (Bld) [#/Vol] 255 10*3/uL Normal 150-450 [facility] Comment on above: Performed By: #### L 501.6900 #### [facility] [address] [place], [address] RBC (Bld) [#/Vol] 5.47 10*6/uL Normal 4.6-6.2 [facility] Comment on above: Performed By: #### L 501.6900 #### [facility] [address] [place], [address] RDW SD 33.7 fl Low 35.1-43.9 [facility] Comment on above: Performed By: #### L 501.6900 #### [facility] [address] [place], [address] WBC (Bld) [#/Vol] 11.1 10*3/uL High 4.4-11.0 [facility] Comment on above: Performed By: #### L 501.6900 #### [facility] [address] 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, [address] Albumin/Globulin [Mass ratio] 0.8 {ratio} Low 0.9-2.4 [facility] Comment on above: Order Comment: 'TROP ' Serial specimen #1, #2 or #3: 1 Performed By: #### L 303.2820 #### [facility] [address] [place], [address] ALK P 102 U/L Normal 45-117 [facility] Comment on above: Order Comment: 'TROP ' Serial specimen #1, #2 or #3: 1 Performed By: #### L 501.6900 #### [facility] [address] [place], [address] ALT [Catalytic activity/Vol] 25 U/L Normal 16-61 [facility] Comment on above: Order Comment: 'TROP ' Serial specimen #1, #2 or #3: 1 Performed By: #### L 501.6900 #### [facility] [address] [place], [address] AST [Catalytic activity/Vol] 7 U/L Low 15-37 [facility] Comment on above: Order Comment: 'TROP ' Serial specimen #1, #2 or #3: 1 Performed By: #### L 501.6900 #### [facility] [address] [place], [address] Bilirubin [Mass/Vol] 0.60 mg/dL Normal 0.20-1.00 [facility] Comment on above: Order Comment: 'TROP ' Serial specimen #1, #2 or #3: 1 Result Comment: For patients on eltrombopag therapy, use of Dimension Marble TBIL is not recommended. Performed By: #### L 501.6900 #### [facility] [address] [place], [address] BUN/CRE 16.2 RATIO Normal 10-20 [facility] Comment on above: Order Comment: 'TROP ' Serial specimen #1, #2 or #3: 1 Performed By: #### L 501.6900 #### [facility] [address] [place], [address] CA,Total 10.2 mg/dL High 8.5-10.1 [facility] Comment on above: Order Comment: 'TROP ' Serial specimen #1, #2 or #3: 1 Performed By: #### L [id number] #### [facility] [address] [place], [address] Chloride [Moles/Vol] 94 mmol/L Low 98-107 [facility] Comment on above: Order Comment: 'TROP ' Serial specimen #1, #2 or #3: 1 Performed By: #### L 510.6900 #### [facility] [address] [place], [address] CO2 [Moles/Vol] 20.0 mmol/L Low 21.0-32.0 [facility] Comment on above: Order Comment: 'TROP ' Serial specimen #1, #2 or #3: 1 Performed By: #### L [id number] #### [facility] [address] [place], [address] Creatinine [Mass/Vol] 2.29 mg/dL High 0.70-1.30 [facility] Comment on above: Order Comment: 'TROP ' Serial specimen #1, #2 or #3: 1 Result Comment: The validity of the calculated GFR GFRAA in patients over 70 years has not been determined. Clinical correlation is essential. Performed By: #### L [id number] #### [facility] [address] [place], [address] ECRCL 31.94 ml/min Normal [facility] Comment on above: Order Comment: 'TROP ' Serial specimen #1, #2 or #3: 1 Performed By: #### L 501.6900 #### [facility] [address] [place], [address] EST GFR - AA 37 mL/min Low >60 [facility] Comment on above: Order Comment: 'TROP ' Serial specimen #1, #2 or #3: 1 Result Comment: Afri can [place] GFR Calc Performed By: #### L [id number] #### [facility] [address] [place], [place], [address] GAP 18 High 5-15 [facility] Comment on above: Order Comment: 'TROP ' Serial specimen #1, #2 or #3: 1 Performed By: #### L 501.6900 #### [facility] [address] [place], [address] GFR/1.73 sq M.predicted among non-blacks MDRD (S/P/Bld) [Vol rate/Area] 31 mL/min/{1.73_m2} Low >60 [facility] Comment on above: Order Comment: 'TROP ' Serial specimen #1, #2 or #3: 1 Result Comment: Non- GFR Calc Performed By: #### L 501.6900 #### [facility] [address] [place], [place], [id number] ([address]) Globulin (S) [Mass/Vol] 5.2 g/dL High 2.2-4.2 [facility] Comment on above: Order Comment: 'TROP ' Serial specimen #1, #2 or #3: 1 Performed By: #### L 501.6900 #### [facility] [address] [place], [place], [address] Glucose [Mass/Vol] 973 mg/dL Invalid Interpretation Code 74-106 [facility] Comment on above: Order Comment: 'TROP ' Serial specimen #1, #2 or #3: 1 Result Comment: Crit ical Result(s) Called at: 21:21:35 10/31/2024 by: Donna Vidal to Laxmi. Results read back by same. Glucose result greater than or equal to 200 mg/dL suggests DIABETES MELLITUS per A.D.A. criteria. Performed By: #### L 501.6900 #### [facility] [address] [place], [address] Potassium [Moles/Vol] 4.8 mmol/L Normal 3.5-5.1 [facility] Comment on above: Order Comment: 'TROP ' Serial specimen #1, #2 or #3: 1 Performed By: #### L 501.6900 #### [facility] [address] [place], [address] Sodium [Moles/Vol] 132 mmol/L Low 136-145 [facility] Comment on above: Order Comment: 'TROP ' Serial specimen #1, #2 or #3: 1 Performed By: #### L 501.6900 #### [facility] [address] [place], [address] T PROT 9.4 g/dL High 6.4-8.2 [facility] Comment on above: Order Comment: 'TROP ' Serial specimen #1, #2 or #3: 1 Performed By: #### L 501.6900 #### [facility] [address] [place], [address] Urea nitrogen [Mass/Vol] 37 mg/dL High 7-18 [facility] Comment on above: Order Comment: 'TROP ' Serial specimen #1, #2 or #3: 1 Performed By: #### L 501.6900 #### [facility] [address], [address] Emergency Department Summary on 10-31-2024 Emergency Department Summary [facility] Medical Records Department [address] [place] [address] Emergency Department Summary 10/31/24 MR#: [id number] Acct: [id number] Name: MARIYA MATHEWS Rep #: [id number] : 1960 63 From: Justice Cabrera DO PCP: Care Physician,No Primary Status:ADM IN Location: [address] History of Present Illness Chief Complaint: [...] Blood Pressure Mean 140 Pulse Ox 98 [facility] Narrative Medical decision making narrative: HISTORY OF PRESENT ILLNESS: 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 Carpio) MDM Narrative: Patient is initially hypertensive with [...] hyperglycemia. D (more content not included)... Normal [facility] Glucoseon 10-31-2024 Glucose [Mass/Vol] 708 mg/dL Invalid Interpretation Code 74-106 [facility] Comment on above: Result Comment: Crit ical Result(s) Called at: 23:55:21 10/31/2024 by: JESSICA BARRON TO YAMILE NICE. Results read back by same. Glucose result greater than or equal to 200 mg/dL suggests DIABETES MELLITUS per A.D.A. criteria. Performed By: #### L 501.0100 #### [facility] [address] [place], [address] L501.4020on 10-31-2024 TROPONIN-I HS 26 pg/mL Normal 3.0-78.0 [facility] Comment on above: Order Comment: 'TROP ' Serial specimen #1, #2 or #3: 1 Result Comment: Mckinley chung Note: New Test Units and Gender Specific Reference Ranges. For more information see Policy Stat Procedure Marble High Sensitivity Troponin (TNIH) and attachments. Performed By: #### L 501.6900 #### [facility] [address] [place], [address] Lipaseon 10-31-2024 Lipase [Catalytic activity/Vol] 58 U/L Normal 13-75 [facility] Comment on above: Order Comment: 'TROP ' Serial specimen #1, #2 or #3: 1 Result Comment: Mckinley chung note: LIPASE revised reference range effective 23. New Lipase methodology. Expected to produce lower values than the previous assay method. NEW Reference Range: 13 - 75 U/L Performed By: #### L 501.6900 #### [facility] [address] [place], [address] Venous Blood Gason 5 Blood Gas Type AMY Normal [facility] Comment on above: Performed By: #### L 501.6900 #### [facility] [address] [place], [address] CO2 [Moles/Vol] 17 mmol/L Low 23-33 [facility] Comment on above: Performed By: #### L 501.6900 #### [facility] [address] [place], [address] HCO3 (Bld) [Moles/Vol] 16 mmol/L Low 22-26 [facility] Comment on above: Performed By: #### L 501.6900 #### [facility] [address] [place], [address] O2 Delivery Dev Room Air Normal [facility] Comment on above: Performed By: #### L 501.6900 #### [facility] [address] [place], [address] SITE Not entered Normal [facility] Comment on above: Performed By: #### L 501.6900 #### [facility] [address] [place], [address] VBG BE -9 mmol/L Low -1.0-3.5 [facility] Comment on above: Performed By: #### L 501.6900 #### [facility] [address] [place], [address] VBG pCO2 28.1 mmHg Low 41-51 [facility] Comment on above: Performed By: #### L 501.6900 #### [facility] [address] [place], [address] VBG pH 7.37 Normal 7.32-7.42 [facility] Comment on above: Performed By: #### L 501.6900 #### [facility] [address] [place], [address] VBG PO2 58 mmHg High 25-40 [facility] Comment on above: Performed By: #### L 501.6900 #### [facility] [address] [place], [address] VBG SO2 89 High 50-70 [facility] Comment on above: Performed By: #### L 501.6900 #### [facility] [address] [place], [address] Laboratory - Microbiology an d Antimicrobial susceptibilityOrdered By: Romeo Duarte on 12-19-2023 SARS-CoV-2 (COVID-19) RNA KRYSTA+probe Ql (Unsp spec) Influenzae A [facility] Vital Signs Date Time Vital Sign Value Performing Clinician Faci lity 04-21-2025 10:59-0400 Body temperature 98 [degF] No Primary Care Physician [facility] 04-21-2025 10:59-0400 Diastolic blood pressure 115 mm[Hg] No Primary Care Physician [facility] 04-21-2025 10:59-0400 Heart rate 75 /min No Primary Care Physician [facility] 04-21-2025 10:59-0400 Respiratory rate 16 /min No Primary Care Physician [facility] 04-21-2025 10:59-0400 SaO2% (BldA) [Mass fraction] 97 % No Primary Care Physician [facility] 04-21-2025 10:59-0400 Systolic blood pressure 182 mm[Hg] No Primary Care Physician [facility] 04-21-2025 08:42-0400 Body height 175.26 cm No Primary Care Physician [facility] 04-21-2025 08:42-0400 Body mass index (BMI) [Ratio] 24.6 kg/m2 No Primary Care Physician [facility] 04-21-2025 08:42-0400 Body weight 75.7 kg No Primary Care Physician [facility] 12-19-2023 14:45-0500 Body temperature 101 [degF] [facility] 12-19-2023 14:45-0500 Diastolic blood pressure 98 mm[Hg] [facility] 12-19-2023 14:45-0500 Heart rate 98 /min [facility] 12-19-2023 14:45-0500 Respiratory rate 16 /min [facility] 12-19-2023 14:45-0500 SaO2% (BldA) [Mass fraction] 95 % [facility] 12-19-2023 14:45-0500 Systolic blood pressure 160 mm[Hg] [facility] 12-19-2023 12:45-0500 Body height 165.1 cm [facility] 12-19-2023 12:45-0500 Body mass index (BMI) [Ratio] 29 kg/m2 [facility] 12-19-2023 12:45-0500 Body weight 79 kg [facility] Encounters Encounter Date Encounter Type Care Provider Facility Start: 04-21-2025 End: 04-21-2025 Emergency department patient visit No Primary Care Physician -Emergency Department Work Phone: Start: 10-31-2024 End: 11-03-2024 Evaluation and management of inpatient No Primary Care Physician Facility:[facility] Start: 10-31-2024 ambulatory Fernando Hatfield Facility:[facility] Start: 12-19-2023 End: 12-19-2023 Emergency department patient visit [facility]-Emergency Department Work Phone: Procedures Date Procedure Procedure Detail Performing Clinician Start: 04-21-2025 CT of lumbar spine No P rimary Care Physician Start: 12-19-2023 SARS-CoV-2, Influenz a & RSV (PCR) Start: 12-19-2023 Plain chest X-ray Plan of Treatment Date Care Activity Detail Author Start: 12-19-2023 [facility] Bilirubin measurement, urine [facility] Hemoglobin [Presence] in Urine [facility] Measurement of keton es in urine using dipstick [facility] Microscopic urinalysis [facility] Organism count, micr oscopic method [facility] Patient Education [facility] Work Phone: Patient referral [facility] Work Phone: pH of Urine [facility] Specific gravity of Urine [facility] Urine dipstick for glucose [facility] Urine dipstick for l eukocyte esterase [facility] Urine dipstick for nitrite [facility] Urine dipstick for protein [facility] Urine examination [facility] Urine microscopy: ep ithelial cells [facility] Urine microscopy: red cells [facility] Urobilinogen [Presence] in Urine [facility] White blood cell count [facility] Payers Date Payer Category Payer Unknown [id number] 2024 Self-pay Unknown [id number] 2.16.8 [id number] Unknown [id number] 2.16.8 [id number] Unknown [id number] 2.16.8 [id number] Unknown [id number] 2.16.8 [id number] Unknown [id number] 2.16.8 [id number] Unknown [id number] 2.16.8 [id number] Social History Date Type Detail Facility Start: 12-19-2023 Tobacco smoking stat [facility] Unknown if ever smoked [facility] Start: 1960 Sex Assigned At Male [facility] Start: 04-21-2025 [facility] (finding) [facility] Medical Equipment Procedure Code Equipment Code Equipment Origin al Text Equipment Identifier Dates Pen Needle, Diab etic 31 gauge x /32 needle Start: 11-03-2024 Mental Status Date Assessment Result Facility 12-19-2023 Cognitive function Level Of Cons ciousness Awake;Alert;Appropriate;Follow s Commands [facility] Work Phone: Discharge summary 04-21-2025 Note Date & Type Note Facility 04-21-2025 Discharge summary [facility] Radiology Diagnostic study note 04-21-2025 Note Date & Type Note Facility 04-21-2025 Radiology Diagnostic study note [facility] Imaging Services [address] [place] [address] Spine Lumbar without Contrast MR#: [id number] Acct: [id number] Name: MARIYA MATHEWS Rep #: [id number] : 1960 M 64 From: Carmen Markham MD PCP: Care Physician,No Primary Status: REG ER Study:Spine Lumbar without Contrast Date of E xam: 04/21/25 Exam# [id number] Ordering Dr: Everardo Winn DO EXAM: CT [...] 2. Degenerative changes as above. Reading Location: [facility] CC: Dr. 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 Plans for patient to follow-up with [facility] for subsequent care. Case was discussed with [...] % (Auto) 68.1, Lymph % (Auto) 25.6, [place] % (Auto) 5.3, Eos % (Auto) 0.7, [...] not meet guidel (more content not included)... [facility] Clinical Note 10-31-2024 Note Date & Type Note Facility 10-31-2024 Note [facility] Medical Records Department [address] [place] [address] History Physical Exam 10/31/247 MR#: [id number] Acct: [id number] Name: MARIYA MATHEWS Rep #: [id number] : 1960 63 From: Romeo Carpio MD PCP: Care Physician,No Primary Status:ADM IN Location: [facility] [id number] HPI - General General Date of Admission: 10/31/24 Date of Service: 10/31/24 Chief Complaint: Generalized weakness HPI Narrative MARIYA MATHEWS, is a 63 M who presents to the emergency room with chief complaint of generalized weakness. Language line afternoon babysitter was used to communicate with the patient who is from [facility] and speaks Creole. Patient complains of sore [...] labs will be ordered in the a.m. [facility] Home Medications ???Medication ???Instructions ???Recorded ???Last Taken [...] 82.3 H, Lymph % (Auto) 13.7 L, [place] % (Auto) 3.4, Eos % (Auto) 0.0, [...] VBG HCO3 16 (more content not included)... [facility] Discharge summary 12-19-2023 Note Date & Type Note Facility 12-19-2023 Discharge summary Note Date/Time December 19, 2023 1:01pm [facility] Medical Records Department [address] [place] [address] Emergency Department Summary 12/19/23 MR#: [id number] Acct: [id number] Name: MARIYA MATHEWS Rep #:[id number] : 1960 63 From: Gurinder Mcdonnell MD PCP: Care Physician,No Primary Status :REG ER Location: ED HPI <GERI Rosales - Last Filed: 12/19/23 14:42> History of Present Illness Chief Complaint: Fever Narrative Narrative: Patient is a 63-year-old male with no significant history who is from [facility] who presents to the emergency department for [...] <GERI Rosales - Last Filed: 12/19/23 14:42> [facility] Medical History no medical history Allergy/AdvReac Type [...] 118 Pulse Ox 95 Oxygen Delivery Method [facility] <Romeo Duarte NP-[place] - Last Filed: 12/19/23 14:42> [facility] Radiography Diagnostic Testing: Clinical Impression(s) from Imaging [...] problems, contact your Primary Care Provider. Call [facility] ([phone]) or report to the closest Emergency Room. Call 911 if necessary. 12/19/23 1450 <Electronically signed by Gurinder Mcdonnell MD> Cosigner Signature (if applicable): 12/19/23 1442 <Electronically signed by Romeo NEVAREZ> CC: No Primary Care Physician ~ Signed [facility] Work Phone: Hospital Discharge instructions 12-19-2023 Note Date & Type Note Facility 12-19-2023 Hospital Discharg e instructions Additional Instructions Please take Tylenol 1000 mg every 6-8 hours, you may take ibuprofen 600 mg every 8 hours. You must maintain hydration. Ensure that you eat and drink normally. Follow-up with your primary care provider. [facility] Work Phone: Discharge summary Note Date & Type Note Facility Discharge summary Note Date/Time April 21, 2025 11:26am [facility] Medical Records Department [address] [facility] [place] [address] Emergency Department Summary 04/21/25 MR#: [id number] Acct: [id number] Name: MARIYA MATHEWS Rep #:[id number] : 1960 64 From: Everardo alegre DO PCP: Care Physician,No Primary Status :REG ER Location: ED HPI History of Present Illness Chief Complaint: Back Narrative Narrative: Chief complaint and HPI: Lumbar back pain. 64-year-old gentleman with past medical history of HTN, HLD, DM2 presents for evaluation of lumbar back pain. Patient does not speak [place]an and therefore official wreath and garland maker hand was used. Patient states yesterday he was [...] intact Psych: Cooperative, appropriate mood and affect [facility] Medical History (Updated 04/21/25 @ 11:07 by [...] lumbar back pain. Patient does not speak [place] and therefore official wreath and garland maker hand was used. Patient states yesterday he was [...] given a work note for today. Official wreath and garland maker hand was used. Impression: 1. Lumbar back strain 2. Hypertension with history of hypertension, not compliant with medication Radiography Diagnostic Testing: Clinical Impression(s) from Imaging Studies Lumbar Spine CT 04/21/25 09:33 IMPRESSION: 1. No acute fracture. 2. Degenerative changes as above. Reading Location: [facility] Discharge Plan Triage Chief Complaint: Back ED [...] your Primary Care Provider. Call [facility] ([phone]) or report to the closest Emergency Room. Call 911 if necessary. 04/21/25 1126 <Electronically signed by Everardo Fermin DO> Cosigner Signature (if applicable): CC: No Primary Care Physician ~ Signed [facility] Work Phone: Evaluation note Note Date & Type Note Facility Evaluation note No assessment information availa ble [facility] Work Phone: Hospital Discharge instructions [...] the ED if symptoms change or worsen. [facility] Work Phone: Reason for referral (narrative) Note Date & Type Note Facility Reason for referral (narrative) No reason for referral information available [facility] Work Phone: Chief Complaint and Reason for Visit Chief Complaint FLU Chief Complaint Admit Date back April 21, 2025 8:42 am Advance Directives No Advanced Directives Records Found Advance Directive Response Recorded Date/ Time Living Will No December 19, 2023 1:41pm Power of Trimmer Buffing Wheel No December 18 1:41pm Advance Directive Response Recorded Date/ Time Do you have a Healthcare Power of Trimmer Buffing Wheel? No April 21, 2025 9:21am Summary Purpose [...] section and content) DATE CREATED AUTHOR 04/29/2025 [facility] FOR RECORDS PERTAINING TO PATIENTS WHO ARE [...] BE BASED ON THE PRIMARY CLINICAL RECORDS. [facility] [employer] [facility]. provides no warranty or guarantee of the accuracy or completeness of information in this document.
[2025-05-12 21:33] LABS: Osmolality, Serum 350 mOsm/KG (280-301)
--- OUTSIDE RECORDS SUMMARY | 2025-05-12 21:41 | XMS RPT_ITS | CCD ---
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 Name Role Phone Care Physician, No Primary [...] Attending Unavailable Romeo Carpio Admitting Unavailable Carpio, Roemo Consulting Unavailable Diomedes Dove Consulting Unavailable Medications [...] Department Summary on 04-21-2025 Emergency Department Summary [facility] Medical Records Department [address] [place] [address] Emergency Department Summary 04/21/25 MR#: [id number] Acct: [id number] Name: MARIYA MATHEWS Rep #: [id number] : 1960 64 From: Everardo Fermin DO PCP: Care Physician,No Primary Status:REG ER Location: ED HPI History of Present Illness Chief Complaint: Back Narrative Narrative: Chief complaint and HPI: Lumbar back pain. 64-year-old gentleman with past medical history of HTN, HLD, DM2 presents for evaluation of lumbar back pain. Patient does not speak Bahamian and therefore official toy stuffer was used. Patient states yesterday he was [...] intact Psych: Cooperative, appropriate mood and affect [facility] Medical History (Updated 04/21/25 @ 11:07 by [...] lumbar back pain. Patient does not speak Bahamian and therefore official toy stuffer was used. Patient states yesterday he was [...] improved with (more content not included)... Normal [facility] Spine Lumbar without Contras ton 04-21-2025 Spine Lumbar without Contrast [facility] Imaging Services [address] [place], [place] [address] Spine Lumbar without Contrast MR#: [id number] Acct: [id number] Name: MARIYA MATHEWS Rep #: [id number] : 1960 M 64 From: Magno Markham MD PCP: Care Physician,No Primary Status: REG ER Study: Spine Lumbar without Contrast Date of Exam: Exam# [id number] Ordering Dr: Barrera Fermin DO EXAM: CT [...] 2. Degenerative changes as above. Reading Location: [facility] CC: Dr. 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 [facility] [address] BUN/CRE Normal 10-20 [facility] Comment on above: Result Comment: Canc elled via OM: Order cancelled - Patient discharged Performed By: #### L 100.0100, L500.2500 ####[facility] [address] [place], [address] CA,Total Normal 8.5-10.1 [facility] Comment on above: Result Comment: Canc elled via OM: Order cancelled - Patient discharged Performed By: #### L 100.0100, L500.2500 ####[facility] [address] [place], [address] CL Normal 98-107 [facility] Comment on above: Result Comment: Canc elled via OM: Order cancelled - Patient discharged Performed By: #### L 100.0100, L500.2500 ####[facility] [address] [place], [address] CO2 Normal 21.0-32.0 [facility] Comment on above: Result Comment: Canc elled via OM: Order cancelled - Patient discharged Performed By: #### L 100.0100, L500.2500 ####[facility] [address] [place], [address] CREAT,SERUM Normal 0.70-1.30 [facility] Comment on above: Result Comment: Canc elled via OM: Order cancelled - Patient discharged Performed By: #### L 100.0100, L500.2500 ####[facility] [address] [place], [address] EST GFR Normal >60 [facility] Comment on above: Result Comment: Canc elled via OM: Order cancelled - Patient discharged Performed By: #### L 100.0100, L500.2500 ####[facility] [address] [place], [address] EST GFR - AA Normal >60 [facility] Comment on above: Result Comment: Canc elled via OM: Order cancelled - Patient discharged Performed By: #### L 100.0100, L500.2500 ####[facility] [address] [place], [address] GAP Normal 5-15 [facility] Comment on above: Result Comment: Canc elled via OM: Order cancelled - Patient discharged Performed By: #### L 100.0100, L500.2500 ####[facility] [address] [place], [address] GLU Normal 74-106 [facility] Comment on above: Result Comment: Canc elled via OM: Order cancelled - Patient discharged Performed By: #### L 100.0100, L500.2500 ####[facility] [address] [place], [address] Potassium Normal 3.5-5.1 [facility] Comment on above: Result Comment: Canc elled via OM: Order cancelled - Patient discharged Performed By: #### L 100.0100, L500.2500 ####[facility] [address] [place], [address] Basic Metabolic Profile (BMP) Normal 136-145 [facility] Comment on above: Result Comment: Canc elled via OM: Order cancelled - Patient discharged Performed By: #### L 100.0100, L500.2500 ####[facility] [address] [place], [address] CBC W/Diff, Automatedon 01-2 Absolute Neut Normal 2.0-7.7 [facility] Comment on above: Result Comment: Canc elled via OM: Order cancelled - Patient discharged Performed By: #### L 100.0100, L500.2500 ####[facility] [address] [place], [address] HCT Normal 40-54 [facility] Comment on above: Result Comment: Canc elled via OM: Order cancelled - Patient discharged Performed By: #### L 100.0100, L500.2500 ####[facility] [address] [place], [address] HGB Normal 13.0-16.5 [facility] Comment on above: Result Comment: Canc elled via OM: Order cancelled - Patient discharged Performed By: #### L 100.0100, L500.2500 ####[facility] [address] [place], [address] MCH Normal 27.0-32.0 [facility] Comment on above: Result Comment: Canc elled via OM: Order cancelled - Patient discharged Performed By: #### L 100.0100, L500.2500 ####[facility] [address] [place], [address] MCHC Normal 32-36 [facility] Comment on above: Result Comment: Canc elled via OM: Order cancelled - Patient discharged Performed By: #### L 100.0100, L500.2500 ####[facility] [address] [place], [address] MCV Normal 80-94 [facility] Comment on above: Result Comment: Canc elled via OM: Order cancelled - Patient discharged Performed By: #### L 100.0100, L500.2500 ####[facility] [address] [place], [address] NEUT% Normal 47-70 [facility] Comment on above: Result Comment: Canc elled via OM: Order cancelled - Patient discharged Performed By: #### L 100.0100, L500.2500 ####[facility] [address] [place], [address] PLT Normal 150-450 [facility] Comment on above: Result Comment: Canc elled via OM: Order cancelled - Patient discharged Performed By: #### L 100.0100, L500.2500 ####[facility] [address] [place], [address] RBC Normal 4.6-6.2 [facility] Comment on above: Result Comment: Canc elled via OM: Order cancelled - Patient discharged Performed By: #### L 100.0100, L500.2500 ####[facility] [address] [place], [address] RDW CV Normal 11.6-14.6 [facility] Comment on above: Result Comment: Canc elled via OM: Order cancelled - Patient discharged Performed By: #### L 100.0100, L500.2500 ####[facility] [address] [place], [address] RDW SD Normal 35.1-43.9 [facility] Comment on above: Result Comment: Canc elled via OM: Order cancelled - Patient discharged Performed By: #### L 100.0100, L500.2500 ####[facility] [address] [place], [address] WBC Normal 4.4-11.0 [facility] Comment on above: Result Comment: Canc elled via OM: Order cancelled - Patient discharged Performed By: #### L 100.0100, L500.2500 ####[facility] [address] [place], [address] Basic Metabolic Profile (BMP )on 11-03-2024 BUN/CRE 15.5 RATIO Normal 10-20 [facility] Comment on above: Performed By: #### L 500.2500, L100.0100 #### [facility] Laboratory [address] [place], [address] CA,Total 8.9 mg/dL Normal 8.5-10.1 [facility] Comment on above: Performed By: #### L 500.2500, L100.0100 #### [facility] Laboratory [address] [place], [address] Chloride [Moles/Vol] 105 mmol/L Normal 98-107 [facility] Comment on above: Performed By: #### L 500.2500, L100.0100 #### [facility] [address] [place], [address] CO2 [Moles/Vol] 23.0 mmol/L Normal 21.0-32.0 [facility] Comment on above: Performed By: #### L 500.2500, L100.0100 #### [facility] Laboratory [address] [place], [address] Creatinine [Mass/Vol] 1.16 mg/dL Normal 0.70-1.30 [facility] Comment on above: Result Comment: The validity of the calculated GFR GFRAA in patients over 70 years has not been determined. Clinical correlation is essential. Performed By: #### L 500.2500, L100.0100 #### [facility] [address] [place], [address] ECRCL 63.06 ml/min Normal [facility] Comment on above: Performed By: #### L 500.2500, L100.0100 #### [facility] [address] [place], [address] EST GFR - AA 82 mL/min Normal >60 [facility] Comment on above: Result Comment: Afri can Brazilian GFR Calc Performed By: #### L 500.2500, L100.0100 #### [facility] [address] [place], [address] GAP 9 Normal 5-15 [facility] Comment on above: Performed By: #### L 500.2500, L100.0100 #### [facility] [address] [place], [address] GFR/1.73 sq M.predicted among non-blacks MDRD (S/P/Bld) [Vol rate/Area] 67 mL/min/{1.73_m2} Normal >60 [facility] Comment on above: Result Comment: Non- GFR Calc Performed By: #### L 500.2500, L100.0100 #### [facility] [address] [place], [address] Glucose [Mass/Vol] 304 mg/dL High 74-106 [facility] Comment on above: Result Comment: Gluc ose result greater than or equal to 200 mg/dL suggests DIABETES MELLITUS per A.D.A. criteria. Performed By: #### L 500.2500, L100.0100 #### [facility] [address] [place], [address] Potassium [Moles/Vol] 3.7 mmol/L Normal 3.5-5.1 [facility] Comment on above: Performed By: #### L 500.2500, L100.0100 #### [facility] [address] [place], [address] Sodium [Moles/Vol] 137 mmol/L Normal 136-145 [facility] Comment on above: Performed By: #### L 500.2500, L100.0100 #### [facility] [address] [place], [address] Urea nitrogen [Mass/Vol] 18 mg/dL Normal 7-18 [facility] Comment on above: Performed By: #### L 500.2500, L100.0100 #### [facility] [address] [place], [address] Bedside Glucoseon 11-03-2024 FINGERSTICK GLU 293 mg/dL High 74-106 [facility] Comment on above: Result Comment: KRISTI SOTO OF PATIENT CARE PER NURSING PROTOCOL Performed By: #### L 501.0100 #### [facility] [address] [place], [address] CBC W/Diff, Automatedon 10-13 Absolute Lymph 2.27 X10 3/uL Normal 0.83-4.51 [facility] Comment on above: Performed By: #### L 500.2500, L100.0100 #### [facility] [address] [place], [address] Absolute Neut 6.0 X10 3/uL Normal 2.0-7.7 [facility] Comment on above: Performed By: #### L 500.2500, L100.0100 #### [facility] [address] [place], [address] Basophils/100 WBC (Bld) 0.1 % Normal 0-1 [facility] Comment on above: Performed By: #### L 500.2500, L100.0100 #### [facility] [address] [place], [address] Eosinophils/100 WBC (Bld) 0.7 % Normal 0-5 [facility] Comment on above: Performed By: #### L 500.2500, L100.0100 #### [facility] [address] [place], [address] Erythrocyte distribution width (RBC) [Ratio] 11.2 % Low 11.6-14.6 [facility] Comment on above: Performed By: #### L 500.2500, L100.0100 #### [facility] [address] [place], [address] Hematocrit (Bld) [Volume fraction] 40.1 % Normal 40-54 [facility] Comment on above: Performed By: #### L 500.2500, L100.0100 #### [facility] [address] [place], [address] Hemoglobin (Bld) [Mass/Vol] 13.2 g/dL Normal 13.0-16.5 [facility] Comment on above: Performed By: #### L 500.2500, L100.0100 #### [facility] [address] [place], [address] IG% 0.200 Normal 0.0-0.9 [facility] Comment on above: Result Comment: IG% - Immature Granulocytes (promyelocytes, myelocytes and metamyelocytes) > 1% indicates that a LEFT SHIFT is Present. Performed By: #### L 500.2500, L100.0100 #### [facility] [address] [facility] [place], [address] Lymphocytes/100 WBC (Bld) 25.6 % Normal 19-41 [facility] Comment on above: Performed By: #### L 500.2500, L100.0100 #### [facility] [address] [place], [address] MCH (RBC) [Entitic mass] 27.3 pg Normal 27.0-32.0 [facility] Comment on above: Performed By: #### L 500.2500, L100.0100 #### [facility] [address] [place], [address] MCHC (RBC) [Mass/Vol] 32.9 g/dL Normal 32-36 [facility] Comment on above: Performed By: #### L 500.2500, L100.0100 #### [facility] [address] [place], [address] MCV (RBC) [Entitic vol] 83.0 fL Normal 80-94 [facility] Comment on above: Performed By: #### L 500.2500, L100.0100 #### [facility] [address] [place], [address] Monocytes/100 WBC (Bld) 5.3 % Normal 0-10 [facility] Comment on above: Performed By: #### L 500.2500, L100.0100 #### [facility] [address] [place], [address] Neutrophils/100 WBC (Bld) 68.1 % Normal 47-70 [facility] Comment on above: Performed By: #### L 500.2500, L100.0100 #### [facility] [address] [place], [address] Nucleated RBC (Bld) [#/Vol] 0 10*3/uL Normal 0-5 [facility] Comment on above: Performed By: #### L 500.2500, L100.0100 #### [facility] [address] [place], [address] Platelet mean volume (Bld) [Entitic vol] 10.9 fL Normal 6.2-12.0 [facility] Comment on above: Performed By: #### L 500.2500, L100.0100 #### [facility] [address] [place], [address] Platelets (Bld) [#/Vol] 189 10*3/uL Normal 150-450 [facility] Comment on above: Performed By: #### L 500.2500, L100.0100 #### [facility] [address] [place], [address] RBC (Bld) [#/Vol] 4.83 10*6/uL Normal 4.6-6.2 [facility] Comment on above: Performed By: #### L 500.2500, L100.0100 #### [facility] [address] [place], [address] RDW SD 34.2 fl Low 35.1-43.9 [facility] Comment on above: Performed By: #### L 500.2500, L100.0100 #### [facility] [address] [place], [address] WBC (Bld) [#/Vol] 8.9 10*3/uL Normal 4.4-11.0 [facility] Comment on above: Performed By: #### L 500.2500, L100.0100 #### [facility] [address] [place], [address] Lipaseon 11-03-2024 Lipase [Catalytic activity/Vol] 74 U/L Normal 13-75 [facility] Comment on above: Result Comment: Mckinley chung note: LIPASE revised reference range effective 23. New Lipase methodology. Expected to produce lower values than the previous assay method. NEW Reference Range: 13 - 75 U/L Performed By: #### L 501.2450 ####[facility] [address] [place], [address] Basic Metabolic Profile (BMP )on 11-02-2024 BUN/CRE 16.8 RATIO Normal 10-20 [facility] Comment on above: Performed By: #### L 500.2500 ####[facility] [address] [place], [address] CA,Total 8.8 mg/dL Normal 8.5-10.1 [facility] Comment on above: Performed By: #### L 500.2500 ####[facility] [address] [place], [address] Chloride [Moles/Vol] 109 mmol/L High 98-107 [facility] Comment on above: Performed By: #### L 500.2500 ####[facility] [address] [place], [address] CO2 [Moles/Vol] 26.0 mmol/L Normal 21.0-32.0 [facility] Comment on above: Performed By: #### L 500.2500 ####[facility] [address] [place], [address] Creatinine [Mass/Vol] 1.19 mg/dL Normal 0.70-1.30 [facility] Comment on above: Result Comment: The validity of the calculated GFR GFRAA in patients over 70 years has not been determined. Clinical correlation is essential. Performed By: #### L 500.2500 ####[facility] [address] [place], [address] ECRCL 61.47 ml/min Normal [facility] Comment on above: Performed By: #### L 500.2500 ####[facility] [address] [place], [address] EST GFR - AA 79 mL/min Normal >60 [facility] Comment on above: Result Comment: Afri can Brazilian GFR Calc Performed By: #### L 500.2500 ####[facility] [address] [place], [address] GAP 7 Normal 5-15 [facility] Comment on above: Performed By: #### L 500.2500 ####[facility] [address] [place], [address] GFR/1.73 sq M.predicted among non-blacks MDRD (S/P/Bld) [Vol rate/Area] 65 mL/min/{1.73_m2} Normal >60 [facility] Comment on above: Result Comment: Non- GFR Calc Performed By: #### L 500.2500 ####[facility] [address] [place], [address] Glucose [Mass/Vol] 244 mg/dL High 74-106 [facility] Comment on above: Result Comment: Gluc ose result greater than or equal to 200 mg/dL suggests DIABETES MELLITUS per A.D.A. criteria. Performed By: #### L 500.2500 ####[facility] [address] [place], [address] Potassium [Moles/Vol] 4.0 mmol/L Normal 3.5-5.1 [facility] Comment on above: Performed By: #### L 500.2500 ####[facility] [address] [place], [address] Sodium [Moles/Vol] 142 mmol/L Normal 136-145 [facility] Comment on above: Performed By: #### L 500.2500 ####[facility] [address] [place], [address] Urea nitrogen [Mass/Vol] 20 mg/dL High 7-18 [facility] Comment on above: Performed By: #### L 500.2500 ####[facility] [address] [place], [address] BUN Normal 7-18 [facility] Comment on above: Order Comment: Call MD with results STAT Result Comment: Canc elled via OM: MD Ordered Performed By: #### L 501.0100 #### [facility] [address] [place], [address] BUN/CRE Normal 10-20 [facility] Comment on above: Order Comment: Call MD with results STAT Result Comment: Canc elled via OM: MD Ordered Performed By: #### L 501.0100 #### [facility] [address] [place], [address] CA,Total Normal 8.5-10.1 [facility] Comment on above: Order Comment: Call MD with results STAT Result Comment: Canc elled via OM: MD Ordered Performed By: #### L 501.0100 #### [facility] [address] [place], [address] CL Normal 98-107 [facility] Comment on above: Order Comment: Call MD with results STAT Result Comment: Canc elled via OM: MD Ordered Performed By: #### L 501.0100 #### [facility] [address] [place], [address] CO2 Normal 21.0-32.0 [facility] Comment on above: Order Comment: Call MD with results STAT Result Comment: Canc elled via OM: MD Ordered Performed By: #### L 501.0100 #### [facility] [address] [place], [address] CREAT,SERUM Normal 0.70-1.30 [facility] Comment on above: Order Comment: Call MD with results STAT Result Comment: Canc elled via OM: MD Ordered Performed By: #### L 501.0100 #### [facility] [address] [place], [address] EST GFR Normal >60 [facility] Comment on above: Order Comment: Call MD with results STAT Result Comment: Canc elled via OM: MD Ordered Performed By: #### L 501.0100 #### [facility] [address] [place], [address] EST GFR - AA Normal >60 [facility] Comment on above: Order Comment: Call MD with results STAT Result Comment: Canc elled via OM: MD Ordered Performed By: #### L 501.0100 #### [facility] [address] [place], [address] GAP Normal 5-15 [facility] Comment on above: Order Comment: Call MD with results STAT Result Comment: Canc elled via OM: MD Ordered Performed By: #### L 501.0100 #### [facility] [address] [place], [address] GLU Normal 74-106 [facility] Comment on above: Order Comment: Call MD with results STAT Result Comment: Canc elled via OM: MD Ordered Performed By: #### L 501.0100 #### [facility] [address] [place], [address] Potassium Normal 3.5-5.1 [facility] Comment on above: Order Comment: Call MD with results STAT Result Comment: Canc elled via OM: MD Ordered Performed By: #### L 501.0100 #### [facility] [address] [place], [address] Basic Metabolic Profile (BMP) Normal 136-145 [facility] Comment on above: Order Comment: Call MD with results STAT Result Comment: Canc elled via OM: MD Ordered Performed By: #### L 501.0100 #### [facility] [address] [place], [address] Bedside Glucoseon 11-02-2024 FINGERSTICK GLU 171 mg/dL High 74-106 [facility] Comment on above: Result Comment: KRISTI GEMENT OF PATIENT CARE PER NURSING PROTOCOL Performed By: #### L 501.0100 #### [facility] [address] [place], [address] FINGERSTICK GLU 195 mg/dL High 74-106 [facility] Comment on above: Result Comment: KRISTI GEMENT OF PATIENT CARE PER NURSING PROTOCOL Performed By: #### L 501.0100 #### [facility] [address] [place], [address] FINGERSTICK GLU 237 mg/dL High 74-106 [facility] Comment on above: Result Comment: KRISTI GEMENT OF PATIENT CARE PER NURSING PROTOCOL Performed By: #### L 501.080 ####[facility] [address] [place], [address] FINGERSTICK GLU 241 mg/dL High 74-106 [facility] Comment on above: Result Comment: KRISTI GEMENT OF PATIENT CARE PER NURSING PROTOCOL Performed By: #### L 501.080 ####[facility] [address] [place], [address] CBC W/Diff, Automatedon 10-13 Absolute Lymph 2.12 X10 3/uL Normal 0.83-4.51 [facility] Comment on above: Performed By: #### L 501.0100 #### [facility] [address] [place], [address] Absolute Neut 8.9 X10 3/uL High 2.0-7.7 [facility] Comment on above: Performed By: #### L 501.0100 #### [facility] [address] [place], [address] Basophils/100 WBC (Bld) 0.3 % Normal 0-1 [facility] Comment on above: Performed By: #### L 501.0100 #### [facility] [address] [place], [address] Eosinophils/100 WBC (Bld) 0.6 % Normal 0-5 [facility] Comment on above: Performed By: #### L 501.0100 #### [facility] [address] [place], [address] Erythrocyte distribution width (RBC) [Ratio] 11.3 % Low 11.6-14.6 [facility] Comment on above: Performed By: #### L 501.0100 #### [facility] [address] [place], [address] Hematocrit (Bld) [Volume fraction] 39.4 % Low 40-54 [facility] Comment on above: Performed By: #### L 501.0100 #### [facility] [address] [place], [address] Hemoglobin (Bld) [Mass/Vol] 13.2 g/dL Normal 13.0-16.5 [facility] Comment on above: Performed By: #### L 501.0100 #### [facility] [address] [place], [address] IG% 0.300 Normal 0.0-0.9 [facility] Comment on above: Result Comment: IG% - Immature Granulocytes (promyelocytes, myelocytes and metamyelocytes) > 1% indicates that a LEFT SHIFT is Present. Performed By: #### L 501.0100 #### [facility] [address] [place], [address] Lymphocytes/100 WBC (Bld) 18.2 % Low 19-41 [facility] Comment on above: Performed By: #### L 501.0100 #### [facility] [address] [place], [address] MCH (RBC) [Entitic mass] 28.1 pg Normal 27.0-32.0 [facility] Comment on above: Performed By: #### L 501.0100 #### [facility] [address] [place], [address] MCHC (RBC) [Mass/Vol] 33.5 g/dL Normal 32-36 [facility] Comment on above: Performed By: #### L 501.0100 #### [facility] [address] [place], [address] MCV (RBC) [Entitic vol] 84.0 fL Normal 80-94 [facility] Comment on above: Performed By: #### L 501.0100 #### [facility] [address] [place], [address] Monocytes/100 WBC (Bld) 4.4 % Normal 0-10 [facility] Comment on above: Performed By: #### L 501.0100 #### [facility] [address] [place], [address] Neutrophils/100 WBC (Bld) 76.2 % High 47-70 [facility] Comment on above: Performed By: #### L 501.0100 #### [facility] [address] [place], [address] Nucleated RBC (Bld) [#/Vol] 0 10*3/uL Normal 0-5 [facility] Comment on above: Performed By: #### L 501.0100 #### [facility] [address] [place], [address] Platelet mean volume (Bld) [Entitic vol] 11.2 fL Normal 6.2-12.0 [facility] Comment on above: Performed By: #### L 501.0100 #### [facility] [address] [place], [address] Platelets (Bld) [#/Vol] 198 10*3/uL Normal 150-450 [facility] Comment on above: Performed By: #### L 501.0100 #### [facility] [address] [place], [address] RBC (Bld) [#/Vol] 4.69 10*6/uL Normal 4.6-6.2 [facility] Comment on above: Performed By: #### L 501.0100 #### [facility] [address] [place], [address] RDW SD 34.6 fl Low 35.1-43.9 [facility] Comment on above: Performed By: #### L 501.0100 #### [facility] [address] [place], [address] WBC (Bld) [#/Vol] 11.7 10*3/uL High 4.4-11.0 [facility] Comment on above: Performed By: #### L 501.0100 #### [facility] [address] [place], [address] Hemoglobin A1con 11-02-2024 HbA1c (Bld) [Mass fraction] 10.3 % High 3.8-5.6 [facility] Comment on above: Result Comment: Norm al < 5.7 % Prediabetic 5.7 - 6.4 % Diabetic >or= 6.5 % Please note range changes. Performed By: #### L 501.0100 #### [facility] [address] [place], [address] T4 Free Directon 11-02-2024 T4 FREE DIRECT 0.99 ng/dL Normal 0.76-1.46 [facility] Comment on above: Performed By: #### L 501.0100 #### [facility] [address] [place], [address] Thyroid Stim Hormone (TSH)on 11-02-2024 TSH 0.501 uIU/mL Normal 0.358-3.740 [facility] Comment on above: Performed By: #### L 501.0100 #### [facility] [address] [place], [address] Acetone Serumon 11-01-2024 ACETONE SERUM SMALL Abnormal NEG [facility] Comment on above: Order Comment: Comme nts: If not done in the EDComments: Add to ER Lab draw Performed By: #### L 501.6900, L501.7300 ####[facility] [address] [place], [address] Basic Metabolic Profile (BMP )on 11-01-2024 BUN Normal 7-18 [facility] Comment on above: Order Comment: Call MD with results STAT Result Comment: Roosevelt murray via OM: Ordered Performed By: #### L 500.2500 ####[facility] [address] [place], [address] Performed By: #### L 500.2500 #### [facility] [address] [place], [address] BUN/CRE Normal 10-20 [facility] Comment on above: Order Comment: Call MD with results STAT Result Comment: Canc elled via OM: MD Ordered Performed By: #### L 500.2500 ####[facility] [address] [place], [address] Performed By: #### L 500.2500 #### [facility] [address] [place], [address] CA,Total Normal 8.5-10.1 [facility] Comment on above: Order Comment: Call MD with results STAT Result Comment: Canc elled via OM: MD Ordered Performed By: #### L 500.2500 ####[facility] [address] [place], [address] Performed By: #### L 500.2500 #### [facility] [address] [place], [address] CL Normal 98-107 [facility] Comment on above: Order Comment: Call MD with results STAT Result Comment: Canc elled via OM: MD Ordered Performed By: #### L 500.2500 ####[facility] [address] [place], [address] Performed By: #### L 500.2500 #### [facility] [address] [place], [address] CO2 Normal 21.0-32.0 [facility] Comment on above: Order Comment: Call MD with results STAT Result Comment: Canc elled via OM: MD Ordered Performed By: #### L 500.2500 ####[facility] [address] [place], [address] Performed By: #### L 500.2500 #### [facility] [address] [place], [address] CREAT,SERUM Normal 0.70-1.30 [facility] Comment on above: Order Comment: Call MD with results STAT Result Comment: Canc elled via OM: MD Ordered Performed By: #### L 500.2500 ####[facility] [address] [place], [address] Performed By: #### L 500.2500 #### [facility] [address] [place], [address] EST GFR Normal >60 [facility] Comment on above: Order Comment: Call MD with results STAT Result Comment: Canc elled via OM: MD Ordered Performed By: #### L 500.2500 ####[facility] [address] [place], [address] Performed By: #### L 500.2500 #### [facility] [address] [place], [address] EST GFR - AA Normal >60 [facility] Comment on above: Order Comment: Call MD with results STAT Result Comment: Canc elled via OM: MD Ordered Performed By: #### L 500.2500 ####[facility] [address] [place], [address] Performed By: #### L 500.2500 #### [facility] [address] [place], [address] GAP Normal 5-15 [facility] Comment on above: Order Comment: Call MD with results STAT Result Comment: Canc elled via OM: MD Ordered Performed By: #### L 500.2500 ####[facility] [address] [place], [address] Performed By: #### L 500.2500 #### [facility] [address] [place], [address] GLU Normal 74-106 [facility] Comment on above: Order Comment: Call MD with results STAT Result Comment: Canc elled via OM: MD Ordered Performed By: #### L 500.2500 ####[facility] [address] [place], [address] Performed By: #### L 500.2500 #### [facility] [address] [place], [address] Potassium Normal 3.5-5.1 [facility] Comment on above: Order Comment: Call with results STAT Result Comment: Roosevelt murray via OM: MD Ordered Performed By: #### L 500.2500 ####[facility] [address] [place], [address] Performed By: #### L 500.2500 #### [facility] [address] [place], [address] Basic Metabolic Profile (BMP) Normal 136-145 [facility] Comment on above: Order Comment: Call with results STAT Result Comment: Roosevelt murray via OM: MD Ordered Performed By: #### L 500.2500 ####[facility] [address] [place], [address] Performed By: #### L 500.2500 #### [facility] [address] [place], [address] BUN/CRE 17.8 RATIO Normal 10-20 [facility] Comment on above: Order Comment: Call with results STAT Performed By: #### L 500.2500 ####[facility] [address] [place], [address] CA,Total 9.1 mg/dL Normal 8.5-10.1 [facility] Comment on above: Order Comment: Call with results STAT Performed By: #### L 500.2500 ####[facility] [address] [place], [address] Chloride [Moles/Vol] 114 mmol/L High 98-107 [facility] Comment on above: Order Comment: Call with results STAT Performed By: #### L 500.2500 ####[facility] [address] [place], [address] CO2 [Moles/Vol] 24.0 mmol/L Normal 21.0-32.0 [facility] Comment on above: Order Comment: Call MD with results STAT Performed By: #### L 500.2500 ####[facility] [address] [place], [address] Creatinine [Mass/Vol] 1.69 mg/dL High 0.70-1.30 [facility] Comment on above: Order Comment: Call MD with results STAT Result Comment: The validity of the calculated GFR GFRAA in patients over 70 years has not been determined. Clinical correlation is essential. Performed By: #### L 500.2500 ####[facility] [address] [place], [address] ECRCL 43.28 ml/min Normal [facility] Comment on above: Order Comment: Call MD with results STAT Performed By: #### L 500.2500 ####[facility] [address] [place], [address] EST GFR - AA 53 mL/min Low >60 [facility] Comment on above: Order Comment: Call MD with results STAT Result Comment: Afri can Brazilian GFR Calc Performed By: #### L 500.2500 ####[facility] [address] [place], [address] GAP 7 Normal 5-15 [facility] Comment on above: Order Comment: Call MD with results STAT Performed By: #### L 500.2500 ####[facility] [address] [place], [address] GFR/1.73 sq M.predicted among non-blacks MDRD (S/P/Bld) [Vol rate/Area] 44 mL/min/{1.73_m2} Low >60 [facility] Comment on above: Order Comment: Call MD with results STAT Result Comment: Non- GFR Calc Performed By: #### L 500.2500 ####[facility] [address] [place], [address] Glucose [Mass/Vol] 339 mg/dL High 74-106 [facility] Comment on above: Order Comment: Call MD with results STAT Result Comment: Gluc ose result greater than or equal to 200 mg/dL suggests DIABETES MELLITUS per A.D.A. criteria. Performed By: #### L 500.2500 ####[facility] [address] [place], [address] Potassium [Moles/Vol] 4.0 mmol/L Normal 3.5-5.1 [facility] Comment on above: Order Comment: Call MD with results STAT Performed By: #### L 500.2500 ####[facility] [address] [place], [address] Sodium [Moles/Vol] 145 mmol/L Normal 136-145 [facility] Comment on above: Order Comment: Call MD with results STAT Performed By: #### L 500.2500 ####[facility] [address] [place], [address] Urea nitrogen [Mass/Vol] 30 mg/dL High 7-18 [facility] Comment on above: Order Comment: Call MD with results STAT Performed By: #### L 500.2500 ####[facility] [address] [place], [address] BUN/CRE 18.8 RATIO Normal 10-20 [facility] Comment on above: Performed By: #### L 500.2500, L501.5200 ####[facility] [address] [place], [address] CA,Total 9.5 mg/dL Normal 8.5-10.1 [facility] Comment on above: Performed By: #### L 500.2500, L501.5200 ####[facility] [address] [place], [address] Chloride [Moles/Vol] 106 mmol/L Normal 98-107 [facility] Comment on above: Performed By: #### L 500.2500, L501.5200 ####[facility] [address] [place], [address] CO2 [Moles/Vol] 22.0 mmol/L Normal 21.0-32.0 [facility] Comment on above: Performed By: #### L 500.2500, L501.5200 ####[facility] [address] [place], [address] Creatinine [Mass/Vol] 1.76 mg/dL High 0.70-1.30 [facility] Comment on above: Result Comment: The validity of the calculated GFR GFRAA in patients over 70 years has not been determined. Clinical correlation is essential. Performed By: #### L 500.2500, L501.5200 ####[facility] [address] [place], [address] ECRCL 41.56 ml/min Normal [facility] Comment on above: Performed By: #### L 500.2500, L501.5200 ####[facility] [address] [place], [address] EST GFR - AA 50 mL/min Low >60 [facility] Comment on above: Result Comment: Afri can Brazilian GFR Calc Performed By: #### L 500.2500, L501.5200 ####[facility] [address] [place], [address] GAP 10 Normal 5-15 [facility] Comment on above: Performed By: #### L 500.2500, L501.5200 ####[facility] [address] [place], [address] GFR/1.73 sq M.predicted among non-blacks MDRD (S/P/Bld) [Vol rate/Area] 42 mL/min/{1.73_m2} Low >60 [facility] Comment on above: Result Comment: Non- GFR Calc Performed By: #### L 500.2500, L501.5200 ####[facility] [address] [place], [address] Glucose [Mass/Vol] 553 mg/dL Invalid Interpretation Code 74-106 [facility] Comment on above: Result Comment: Crit ical Result(s) Called at: 07:34:29 11/01/2024 by: Veronica Corrales to raman Buenrostro. Results read back by same. Glucose result greater than or equal to 200 mg/dL suggests DIABETES MELLITUS per A.D.A. criteria. Performed By: #### L 500.2500, L501.5200 ####[facility] [address] [place], [address] Potassium [Moles/Vol] 5.1 mmol/L Normal 3.5-5.1 [facility] Comment on above: Performed By: #### L 500.2500, L501.5200 ####[facility] [address] [place], [address] Sodium [Moles/Vol] 138 mmol/L Normal 136-145 [facility] Comment on above: Performed By: #### L 500.2500, L501.5200 ####[facility] [address] [place], [address] Urea nitrogen [Mass/Vol] 33 mg/dL High 7-18 [facility] Comment on above: Performed By: #### L 500.2500, L501.5200 ####[facility] [address] [place], [address] Bedside Glucoseon 11-01-2024 FINGERSTICK GLU 269 mg/dL High 74-106 [facility] Comment on above: Result Comment: KRISTI CHARLES OF PATIENT CARE PER NURSING PROTOCOL Performed By: #### L 501.0100 #### [facility] [address] [place], [address] FINGERSTICK GLU 439 mg/dL High [address] [place] [address] Comment on above: Result Comment: KRISTI GEMENT OF PATIENT CARE PER NURSING PROTOCOL Performed By: #### L 501.080 ####[facility] [address] [place], [address] FINGERSTICK GLU 239 mg/dL High [address] [place] [address] Comment on above: Result Comment: KRISTI GEMENT OF PATIENT CARE PER NURSING PROTOCOL Performed By: #### L 501.0100 #### [facility] [address] [place], [address] FINGERSTICK GLU 301 mg/dL High [address] [place] [address] Comment on above: Result Comment: KRISTI GEMENT OF PATIENT CARE PER NURSING PROTOCOL Performed By: #### L 501.080 ####[facility] [address] [place], [address] FINGERSTICK GLU 316 mg/dL High [address] [place] [address] Comment on above: Result Comment: KRISTI GEMENT OF PATIENT CARE PER NURSING PROTOCOL Performed By: #### L 501.080 #### [facility] [address] [place], [address] FINGERSTICK GLU 366 mg/dL High [address] [place] [address] Comment on above: Result Comment: KRISTI GEMENT OF PATIENT CARE PER NURSING PROTOCOL Performed By: #### L 501.080 ####[facility] [address] [place], [address] FINGERSTICK GLU 471 mg/dL Invalid Interpretation Code [address] [place] [address] Comment on above: Result Comment: Dr Faye casas Followed MANAGEMENT OF PATIENT CARE PER NURSING PROTOCOL Performed By: #### L 501.080 ####[facility] [address] [place], [address] FINGERSTICK GLU > 500 Invalid Interpretation Code [address] [place] [address] Comment on above: Result Comment: Dr Faye casas Followed MANAGEMENT OF PATIENT CARE PER NURSING PROTOCOL Performed By: #### L 501.080 ####[facility] [address] [place], [address] M100.677on 11-01-2024 M100.677 Negative Normal [facility] [facility] Comment on above: Performed By: #### M 100.677 ####[facility] [address] [place], [address] Magnesiumon 11-01-2024 Magnesium [Mass/Vol] 3.2 mg/dL High 1.6-2.6 [facility] Comment on above: Performed By: #### L 500.2500, L501.5200 ####[facility] [address] [place], [address] Osmolality, Serumon 11-01-19 25 OSMOLALITY,SER 352 mOsm/KG High 280-301 [facility] Comment on above: Order Comment: Comme nts: If not done in the EDComments: Add to ER Lab draw Performed By: #### L 501.6900, L501.7300 ####[facility] [address] [place], [address] 12 Lead EKGon 10-31-2024 12 Lead EKG [facility] Cardiovascular Services [address] [place] [address] 12 Lead EKG 10/31/242021 MR#: [id number] Acct: [id number] Name: MARIYA MATHEWS Rep #: [id number] : 1960 63 From: Shabana Sorenson MD [...] Abnormal ECG Confirmed by SANTOSH GEORGE, ANIYAH ([id number]), website/blog editor DHAVAL MURGUIA ([id number]) on 11/07/2024 2:21:37 PM Referred By: Confirmed By: ANIYAH SORENSON MD 11/07/24 1421 Date Shabana Sorenson MD CC: Dr. Fernando Hatfield MD; Dr. Justice Cabrera DO; No Primary Care Physician Signed Normal [facility] Abdomen/Pelvis without Conto n 10-31-2024 Abdomen/Pelvis without Cont [facility] Imaging Services [address] [place] [address] Abdomen/Pelvis without Cont MR#: [id number] Acct: [id number] Name: MARIYA MATHEWS Rep #: [id number] : 1960 M 63 From: Dayne infante DO PCP: Care Physician,No Primary Status: REG ER Study: Abdomen/Pelvis without Cont Date of Exam: 10/13 Exam# [id number] Ordering Dr: Justice Cabrera DO -[id number] EXAM: CT ABDOMEN AND PELVIS WITHOUT [...] Justice Cabrera DO; No Primary Care Physician Spinning Lathe Operator Hydraulic: Signed Normal [facility] Acetone Serumon 10-31-2024 ACETONE SERUM Negative Normal NEG [facility] Comment on above: Performed By: #### L 501.6900 #### [facility] Laboratory [address] [place], [place], [address] Bedside Glucoseon 10-31-2024 FINGERSTICK GLU > 500 Invalid Interpretation Code 38-106 [facility] Comment on above: Result Comment: Dr Faye casas Followed MANAGEMENT OF PATIENT CARE PER NURSING PROTOCOL Performed By: #### L 501.6900 #### [facility] Laboratory [address] [place], [address] CBC W/Diff, Automatedon 01-2 0-5 Absolute Lymph 1.52 X10 3/uL Normal 0.83-4.51 [facility] Comment on above: Performed By: #### L 501.6900 #### [facility] Laboratory [address] [place], [address] Absolute Neut 9.1 X10 3/uL High 2.0-7.7 [facility] Comment on above: Performed By: #### L 501.6900 #### [facility] Laboratory [address] [place], [address] Basophils/100 WBC (Bld) 0.2 % Normal 0-1 [facility] Comment on above: Performed By: #### L 501.6900 #### [facility] Laboratory [address] [place], [address] Eosinophils/100 WBC (Bld) 0.0 % Normal 0-5 [facility] Comment on above: Performed By: #### L 501.6900 #### [facility] Laboratory [address] [place], [address] Erythrocyte distribution width (RBC) [Ratio] 11.3 % Low 11.6-14.6 [facility] Comment on above: Performed By: #### L 501.6900 #### [facility] Laboratory [address] [place], [address] Hematocrit (Bld) [Volume fraction] 45.2 % Normal 40-54 [facility] Comment on above: Performed By: #### L 501.6900 #### [facility] Laboratory [address] [place], [address] Hemoglobin (Bld) [Mass/Vol] 15.4 g/dL Normal 13.0-16.5 [facility] Comment on above: Performed By: #### L 501.6900 #### [facility] Laboratory [address] [place], [address] IG% 0.400 Normal 0.0-0.9 [facility] Comment on above: Result Comment: IG% - Immature Granulocytes (promyelocytes, myelocytes and metamyelocytes) > 1% indicates that a LEFT SHIFT is Present. Performed By: #### L 501.6900 #### [facility] Laboratory [address] [place], [address] Lymphocytes/100 WBC (Bld) 13.7 % Low 19-41 [facility] Comment on above: Performed By: #### L 501.6900 #### [facility] Laboratory [address] [place], [address] MCH (RBC) [Entitic mass] 28.2 pg Normal 27.0-32.0 [facility] Comment on above: Performed By: #### L 501.6900 #### [facility] Laboratory [address] [place], [address] MCHC (RBC) [Mass/Vol] 34.1 g/dL Normal 32-36 [facility] Comment on above: Performed By: #### L 501.7070 #### [facility] Laboratory [address] [place], [address] MCV (RBC) [Entitic vol] 82.6 fL Normal 80-94 [facility] Comment on above: Performed By: #### L 501.7210 #### [facility] Laboratory [address] [place], [address] Monocytes/100 WBC (Bld) 3.4 % Normal 0-10 [facility] Comment on above: Performed By: #### L 501.5090 #### [facility] Laboratory [address] [place], [address] Neutrophils/100 WBC (Bld) 82.3 % High 47-70 [facility] Comment on above: Performed By: #### L 501.9010 #### [facility] Laboratory [address] [place], [address] Nucleated RBC (Bld) [#/Vol] 0 10*3/uL Normal 0-5 [facility] Comment on above: Performed By: #### L 501.6900 #### [facility] Laboratory [address] [place], [address] Platelet mean volume (Bld) [Entitic vol] 11.7 fL Normal 6.2-12.0 [facility] Comment on above: Performed By: #### L 501.6900 #### [facility] Laboratory [address] [place], [address] Platelets (Bld) [#/Vol] 255 10*3/uL Normal 150-450 [facility] Comment on above: Performed By: #### L 501.6900 #### [facility] Laboratory [address] [place], [address] RBC (Bld) [#/Vol] 5.47 10*6/uL Normal 4.6-6.2 [facility] Comment on above: Performed By: #### L 501.6900 #### [facility] Laboratory [address] [place], [address] RDW SD 33.7 fl Low 35.1-43.9 [facility] Comment on above: Performed By: #### L 501.6900 #### [facility] Laboratory [address] [place], [address] WBC (Bld) [#/Vol] 11.1 10*3/uL High 4.4-11.0 [facility] Comment on above: Performed By: #### L 501.6900 #### [facility] Laboratory [address] [place], [address] Chest 1 View (Portable)on Chest 1 View (Portable) [facility] Imaging Services [address] [place] [address] Chest 1 View (Portable) MR#: [id number] Acct: [id number] Name: MARIYA MATHEWS Rep #: [id number] : 1960 M 63 From: Dayne denisnoe PCP: Care Physician,No Primary Status: REG ER Study: Chest 1 View (Portable) Date of Exam: 10/31/24 Exam# [id number] Ordering Dr: Justice Cabrera DO -[id number] EXAM: XR CHEST, 1 VIEW CLINICAL [...] Justice Cabrera DO; No Primary Care Physician Spinning Lathe Operator Hydraulic: Signed Normal [facility] Comprehensive Metabolic Prof ilon 10-31-2024 Albumin [Mass/Vol] 4.2 g/dL Normal 3.2-5.0 [facility] Comment on above: Order Comment: 'TROP ' Serial specimen #1, #2 or #3: 1 Performed By: #### L 683.5612 #### [facility] Laboratory [address] [place], [address] Albumin/Globulin [Mass ratio] 0.8 {ratio} Low 0.9-2.4 [facility] Comment on above: Order Comment: 'TROP ' Serial specimen #1, #2 or #3: 1 Performed By: #### L 045.0090 #### [facility] Laboratory [address] [place], [address] ALK P 102 U/L Normal 45-117 [facility] Comment on above: Order Comment: 'TROP ' Serial specimen #1, #2 or #3: 1 Performed By: #### L 501.6900 #### [facility] Laboratory [address] [place], [address] ALT [Catalytic activity/Vol] 25 U/L Normal 16-61 [facility] Comment on above: Order Comment: 'TROP ' Serial specimen #1, #2 or #3: 1 Performed By: #### L 501.6900 #### [facility] Laboratory [address] [place], [address] AST [Catalytic activity/Vol] 7 U/L Low 15-37 [facility] Comment on above: Order Comment: 'TROP ' Serial specimen #1, #2 or #3: 1 Performed By: #### L 501.6900 #### [facility] Laboratory [address] [place], [address] Bilirubin [Mass/Vol] 0.60 mg/dL Normal 0.20-1.00 [facility] Comment on above: Order Comment: 'TROP ' Serial specimen #1, #2 or #3: 1 Result Comment: For patients on eltrombopag therapy, use of Dimension [place] TBIL is not recommended. Performed By: #### L 501.6900 #### [facility] Laboratory [address] [place], [address] BUN/CRE 16.2 RATIO Normal 10-20 [facility] Comment on above: Order Comment: 'TROP ' Serial specimen #1, #2 or #3: 1 Performed By: #### L 501.6900 #### [facility] Laboratory [address] [place], [address] CA,Total 10.2 mg/dL High 8.5-10.1 [facility] Comment on above: Order Comment: 'TROP ' Serial specimen #1, #2 or #3: 1 Performed By: #### L [id number] #### [facility] Laboratory [address] [place], [address] Chloride [Moles/Vol] 94 mmol/L Low 98-107 [facility] Comment on above: Order Comment: 'TROP ' Serial specimen #1, #2 or #3: 1 Performed By: #### L 590.6900 #### [facility] Laboratory [address] [place], [address] CO2 [Moles/Vol] 20.0 mmol/L Low 21.0-32.0 [facility] Comment on above: Order Comment: 'TROP ' Serial specimen #1, #2 or #3: 1 Performed By: #### L [id number] #### [facility] Laboratory [address] [place], [address] Creatinine [Mass/Vol] 2.29 mg/dL High 0.70-1.30 [facility] Comment on above: Order Comment: 'TROP ' Serial specimen #1, #2 or #3: 1 Result Comment: The validity of the calculated GFR GFRAA in patients over 70 years has not been determined. Clinical correlation is essential. Performed By: #### L [id number] #### [facility] Laboratory [address] [place], [address] ECRCL 31.94 ml/min Normal [facility] Comment on above: Order Comment: 'TROP ' Serial specimen #1, #2 or #3: 1 Performed By: #### L 501.6900 #### [facility] Laboratory [address] [place], [address] EST GFR - AA 37 mL/min Low >60 [facility] Comment on above: Order Comment: 'TROP ' Serial specimen #1, #2 or #3: 1 Result Comment: Afri can Brazilian GFR Calc Performed By: #### L [id number] #### [facility] Laboratory [address] [place], [place], [address] GAP 18 High 5-15 [facility] Comment on above: Order Comment: 'TROP ' Serial specimen #1, #2 or #3: 1 Performed By: #### L 501.6900 #### [facility] Laboratory [address] [place], [address] GFR/1.73 sq M.predicted among non-blacks MDRD (S/P/Bld) [Vol rate/Area] 31 mL/min/{1.73_m2} Low >60 [facility] Comment on above: Order Comment: 'TROP ' Serial specimen #1, #2 or #3: 1 Result Comment: Non- GFR Calc Performed By: #### L 501.6900 #### [facility] Laboratory [address] [place], [place], [id number] ([address]) Globulin (S) [Mass/Vol] 5.2 g/dL High 2.2-4.2 [facility] Comment on above: Order Comment: 'TROP ' Serial specimen #1, #2 or #3: 1 Performed By: #### L 501.6900 #### [facility] Laboratory [address] [place], [place], [address] Glucose [Mass/Vol] 973 mg/dL Invalid Interpretation Code 74-106 [facility] Comment on above: Order Comment: 'TROP ' Serial specimen #1, #2 or #3: 1 Result Comment: Crit ical Result(s) Called at: 21:21:35 10/31/2024 by: Donna Vidal to Laxmi. Results read back by same. Glucose result greater than or equal to 200 mg/dL suggests DIABETES MELLITUS per A.D.A. criteria. Performed By: #### L 501.6900 #### [facility] Laboratory [address] [place], [address] Potassium [Moles/Vol] 4.8 mmol/L Normal 3.5-5.1 [facility] Comment on above: Order Comment: 'TROP ' Serial specimen #1, #2 or #3: 1 Performed By: #### L 501.6900 #### [facility] Laboratory [address] [place], [address] Sodium [Moles/Vol] 132 mmol/L Low 136-145 [facility] Comment on above: Order Comment: 'TROP ' Serial specimen #1, #2 or #3: 1 Performed By: #### L 501.6900 #### [facility] Laboratory [address] [place], [address] T PROT 9.4 g/dL High 6.4-8.2 [facility] Comment on above: Order Comment: 'TROP ' Serial specimen #1, #2 or #3: 1 Performed By: #### L 501.6900 #### [facility] Laboratory [address] [place], [address] Urea nitrogen [Mass/Vol] 37 mg/dL High 7-18 [facility] Comment on above: Order Comment: 'TROP ' Serial specimen #1, #2 or #3: 1 Performed By: #### L 501.6900 #### [facility] Laboratory [address] [place], [address] Emergency Department Summary on 10-31-2024 Emergency Department Summary [facility] Medical Records Department [address] [place] [address] Emergency Department Summary 10/31/24 MR#: [id number] Acct: [id number] Name: MARIYA MATHEWS Rep #: [id number] : 1960 63 From: Justice Cabrera DO PCP: Care Physician,No Primary Status:ADM IN Location: [address] History of Present Illness Chief Complaint: [...] Blood Pressure Mean 140 Pulse Ox 98 [facility] Narrative Medical decision making narrative: HISTORY OF PRESENT ILLNESS: Language LIne automatic outsole cutter used 63-year-old male presents with chest pain, [...] hyperglycemia. D (more content not included)... Normal [facility] Glucoseon 10-31-2024 Glucose [Mass/Vol] 708 mg/dL Invalid Interpretation Code 74-106 [facility] Comment on above: Result Comment: Crit ical Result(s) Called at: 23:55:21 10/31/2024 by: JESSICA BARRON TO YAMILE NICE. Results read back by same. Glucose result greater than or equal to 200 mg/dL suggests DIABETES MELLITUS per A.D.A. criteria. Performed By: #### L 501.0100 #### [facility] Laboratory [address] [place], [address] L501.4020on 10-31-2024 TROPONIN-I HS 26 pg/mL Normal 3.0-78.0 [facility] Comment on above: Order Comment: 'TROP ' Serial specimen #1, #2 or #3: 1 Result Comment: Mckinley chung Note: New Test Units and Gender Specific Reference Ranges. For more information see Policy Stat Procedure [place] High Sensitivity Troponin (TNIH) and attachments. Performed By: #### L 501.6900 #### [facility] Laboratory [address] [place], [address] Lipaseon 10-31-2024 Lipase [Catalytic activity/Vol] 58 U/L Normal 13-75 [facility] Comment on above: Order Comment: 'TROP ' Serial specimen #1, #2 or #3: 1 Result Comment: Mckinley chung note: LIPASE revised reference range effective 23. New Lipase methodology. Expected to produce lower values than the previous assay method. NEW Reference Range: 13 - 75 U/L Performed By: #### L 501.6900 #### [facility] Laboratory [address] [place], [address] Venous Blood Gason 5 Blood Gas Type AMY Normal [facility] Comment on above: Performed By: #### L 501.6900 #### [facility] Laboratory [address] [place], [address] CO2 [Moles/Vol] 17 mmol/L Low 23-33 [facility] Comment on above: Performed By: #### L 501.6900 #### [facility] Laboratory [address] [place], [address] HCO3 (Bld) [Moles/Vol] 16 mmol/L Low 22-26 [facility] Comment on above: Performed By: #### L 501.6900 #### [facility] Laboratory [address] [place], [address] O2 Delivery Dev Room Air Normal [facility] Comment on above: Performed By: #### L 501.6900 #### [facility] Laboratory [address] [place], [address] SITE Not entered Normal [facility] Comment on above: Performed By: #### L 501.6900 #### [facility] Laboratory [address] [place], [address] VBG BE -9 mmol/L Low -1.0-3.5 [facility] Comment on above: Performed By: #### L 501.6900 #### [facility] Laboratory [address] [place], [address] VBG pCO2 28.1 mmHg Low 41-51 [facility] Comment on above: Performed By: #### L 501.6900 #### [facility] Laboratory [address] [place], [address] VBG pH 7.37 Normal 7.32-7.42 [facility] Comment on above: Performed By: #### L 501.6900 #### [facility] Laboratory [address] [place], [address] VBG PO2 58 mmHg High 25-40 [facility] Comment on above: Performed By: #### L 501.6900 #### [facility] Laboratory [address] [place], [address] VBG SO2 89 High 50-70 [facility] Comment on above: Performed By: #### L 501.6900 #### [facility] Laboratory [address] [place], [address] Laboratory - Microbiology an d Antimicrobial susceptibilityOrdered By: Romeo Duarte on 12-19-2023 SARS-CoV-2 (COVID-19) RNA KRYSTA+probe Ql (Unsp spec) Influenzae A [facility] Vital Signs Date Time Vital Sign Value Performing Clinician Faci lity 04-21-2025 10:59-0400 Body temperature 98 [degF] No Primary Care Physician [facility] 04-21-2025 10:59-0400 Diastolic blood pressure 115 mm[Hg] No Primary Care Physician [facility] 04-21-2025 10:59-0400 Heart rate 75 /min No Primary Care Physician [facility] 04-21-2025 10:59-0400 Respiratory rate 16 /min No Primary Care Physician [facility] 04-21-2025 10:59-0400 SaO2% (BldA) [Mass fraction] 97 % No Primary Care Physician [facility] 04-21-2025 10:59-0400 Systolic blood pressure 182 mm[Hg] No Primary Care Physician [facility] 04-21-2025 08:42-0400 Body height 175.26 cm No Primary Care Physician [facility] 04-21-2025 08:42-0400 Body mass index (BMI) [Ratio] 24.6 kg/m2 No Primary Care Physician [facility] 04-21-2025 08:42-0400 Body weight 75.7 kg No Primary Care Physician [facility] 12-19-2023 14:45-0500 Body temperature 101 [degF] [facility] 12-19-2023 14:45-0500 Diastolic blood pressure 98 mm[Hg] [facility] 12-19-2023 14:45-0500 Heart rate 98 /min [facility] 12-19-2023 14:45-0500 Respiratory rate 16 /min [facility] 12-19-2023 14:45-0500 SaO2% (BldA) [Mass fraction] 95 % [facility] 12-19-2023 14:45-0500 Systolic blood pressure 160 mm[Hg] [facility] 12-19-2023 12:45-0500 Body height 165.1 cm [facility] 12-19-2023 12:45-0500 Body mass index (BMI) [Ratio] 29 kg/m2 [facility] 12-19-2023 12:45-0500 Body weight 79 kg [facility] Encounters Encounter Date Encounter Type Care Provider Facility Start: 04-21-2025 End: 04-21-2025 Emergency department patient visit No Primary Care Physician -Emergency Department Work Phone: Start: 10-31-2024 End: 11-03-2024 Evaluation and management of inpatient No Primary Care Physician Facility:[facility] Start: 10-31-2024 ambulatory Fernando Hatfield Facility:[facility] Start: 12-19-2023 End: 12-19-2023 Emergency department patient visit [facility]-Emergency Department Work Phone: Procedures Date Procedure Procedure Detail Performing Clinician Start: 04-21-2025 CT of lumbar spine No P rimary Care Physician Start: 12-19-2023 SARS-CoV-2, Influenz a & RSV (PCR) Start: 12-19-2023 Plain chest X-ray Plan of Treatment Date Care Activity Detail Author Start: 12-19-2023 [facility] Bilirubin measurement, urine [facility] Hemoglobin [Presence] in Urine [facility] Measurement of keton es in urine using dipstick [facility] Microscopic urinalysis [facility] Organism count, micr oscopic method [facility] Patient Education [facility] Work Phone: Patient referral [facility] Work Phone: pH of Urine [facility] Specific gravity of Urine [facility] Urine dipstick for glucose [facility] Urine dipstick for l eukocyte esterase [facility] Urine dipstick for nitrite [facility] Urine dipstick for protein [facility] Urine examination [facility] Urine microscopy: ep ithelial cells [facility] Urine microscopy: red cells [facility] Urobilinogen [Presence] in Urine [facility] White blood cell count [facility] Payers Date Payer Category Payer Unknown [id number] 2024 Self-pay Unknown [id number] 2.16.8 [id number] Unknown [id number] 2.16.8 [id number] Unknown [id number] 2.16.8 [id number] Unknown [id number] 2.16.8 [id number] Unknown [id number] 2.16.8 [id number] Unknown [id number] 2.16.8 [id number] Social History Date Type Detail Facility Start: 12-19-2023 Tobacco smoking stat [facility] Unknown if ever smoked [facility] Start: 1960 Sex Assigned At Male [facility] Start: 04-21-2025 [facility] Medical Equipment Procedure Code Equipment Code Equipment Origin al Text Equipment Identifier Dates Pen Needle, Diab etic 31 gauge x /32 needle Start: 11-03-2024 Mental Status Date Assessment Result Facility 12-19-2023 Cognitive function Level Of Cons ciousness Awake;Alert;Appropriate;Follow s Commands [facility] Work Phone: Discharge summary 04-21-2025 Note Date & Type Note Facility 04-21-2025 Discharge summary [facility] Radiology Diagnostic study note 04-21-2025 Note Date & Type Note Facility 04-21-2025 Radiology Diagnostic study note [facility] Imaging Services [address] [place] [address] Spine Lumbar without Contrast MR#: [id number] Acct: [id number] Name: MARIYA MATHEWS Rep #: [id number] : 1960 M 64 From: Carmen Markham MD PCP: Care Physician,No Primary Status: REG ER Study:Spine Lumbar without Contrast Date of E xam: 04/21/25 Exam# [id number] Ordering Dr: Everardo Winn DO EXAM: CT [...] 2. Degenerative changes as above. Reading Location: [facility] CC: Dr. 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 Plans for patient to follow-up with [facility] for subsequent care. Case was discussed with [...] % (Auto) 68.1, Lymph % (Auto) 25.6, Licking % (Auto) 5.3, Eos % (Auto) 0.7, [...] not meet guidel (more content not included)... [facility] Clinical Note 10-31-2024 Note Date & Type Note Facility 10-31-2024 Note [facility] Medical Records Department [address] [place] [address] History Physical Exam 10/31/247 MR#: [id number] Acct: [id number] Name: MARIYA MATHEWS Rep #: [id number] : 1960 63 From: Romeo Carpio MD PCP: Care Physician,No Primary Status:ADM IN Location: [facility] [id number] HPI - General General Date of Admission: 10/31/24 Date of Service: 10/31/24 Chief Complaint: Generalized weakness HPI Narrative MARIYA MATHEWS, is a 63 M who presents to the emergency room with chief complaint of generalized weakness. Language line automatic outsole cutter was used to communicate with the patient who is from [facility] and speaks Creole. Patient complains of sore [...] labs will be ordered in the a.m. [facility] Home Medications ???Medication ???Instructions ???Recorded ???Last [...] 82.3 H, Lymph % (Auto) 13.7 L, Licking % (Auto) 3.4, Eos % (Auto) 0.0, [...] VBG HCO3 16 (more content not included)... [facility] Discharge summary 12-19-2023 Note Date & Type Note Facility 12-19-2023 Discharge summary Note Date/Time December 19, 2023 1:01pm [facility] Medical Records Department [address] [place] [address] Emergency Department Summary 12/19/23 MR#: [id number] Acct: [id number] Name: MARIYA MATHEWS Rep #:[id number] : 1960 63 From: Gurinder Mcdonnell MD PCP: Care Physician,No Primary Status :REG ER Location: ED HPI <GERI Rosales - Last Filed: 12/19/23 14:42> History of Present Illness Chief Complaint: Fever Narrative Narrative: Patient is a 63-year-old male with no significant history who is from [facility] who presents to the emergency department for [...] <GERI Rosales - Last Filed: 12/19/23 14:42> [facility] Medical History no medical history Allergy/AdvReac [...] 118 Pulse Ox 95 Oxygen Delivery Method [facility] <Romeo Duarte NP-[place] - Last Filed: 12/19/23 14:42> [facility] Radiography Diagnostic Testing: Clinical Impression(s) from Imaging [...] problems, contact your Primary Care Provider. Call [facility] ([phone]) or report to the closest Emergency Room. Call 911 if necessary. 12/19/23 1450 <Electronically signed by Gurinder Mcdonnell MD> Cosigner Signature (if applicable): 12/19/23 1442 <Electronically signed by Romeo NEVAREZ> CC: No Primary Care Physician ~ Signed [facility] Work Phone: Hospital Discharge instructions 12-19-2023 Note Date & Type Note Facility 12-19-2023 Hospital Discharg e instructions Additional Instructions Please take Tylenol 1000 mg every 6-8 hours, you may take ibuprofen 600 mg every 8 hours. You must maintain hydration. Ensure that you eat and drink normally. Follow-up with your primary care provider. [facility] Work Phone: Discharge summary Note Date & Type Note Facility Discharge summary Note Date/Time April 21, 2025 11:26am [facility] Medical Records Department [address] [facility] [place] [address] Emergency Department Summary 04/21/25 MR#: [id number] Acct: [id number] Name: MARIYA MATHEWS Rep #:[id number] : 1960 64 From: Everardo alegre DO PCP: Care Physician,No Primary Status :REG ER Location: ED HPI History of Present Illness Chief Complaint: Back Narrative Narrative: Chief complaint and HPI: Lumbar back pain. 64-year-old gentleman with past medical history of HTN, HLD, DM2 presents for evaluation of lumbar back pain. Patient does not speak Bahamian and therefore official toy stuffer was used. Patient states yesterday he was [...] intact Psych: Cooperative, appropriate mood and affect [facility] Medical History (Updated 04/21/25 @ 11:07 by [...] lumbar back pain. Patient does not speak Bahamian and therefore official toy stuffer was used. Patient states yesterday he was [...] given a work note for today. Official toy stuffer was used. Impression: 1. Lumbar back strain 2. Hypertension with history of hypertension, not compliant with medication Radiography Diagnostic Testing: Clinical Impression(s) from Imaging Studies Lumbar Spine CT 04/21/25 09:33 IMPRESSION: 1. No acute fracture. 2. Degenerative changes as above. Reading Location: [facility] Discharge Plan Triage Chief Complaint: [...] your Primary Care Provider. Call [facility] ([phone]) or report to the closest Emergency Room. Call 911 if necessary. 04/21/25 1126 <Electronically signed by Everardo Fermin DO> Cosigner Signature (if applicable): CC: No Primary Care Physician ~ Signed [facility] Work Phone: Evaluation note Note Date & Type Note Facility Evaluation note No assessment information availa ble [facility] Work Phone: Hospital Discharge instructions Note Date [...] the ED if symptoms change or worsen. [facility] Work Phone: Reason for referral (narrative) Note Date & Type Note Facility Reason for referral (narrative) No reason for referral information available [facility] Work Phone: Chief Complaint and Reason for Visit Chief Complaint FLU Chief Complaint Admit Date back April 21, 2025 8:42 am Advance Directives No Advanced Directives Records Found Advance Directive Response Recorded Date/ Time Living Will No December 19, 2023 1:41pm Power of Community Service Coordinator No December 18 1:41pm Advance Directive Response Recorded Date/ Time Do you have a Healthcare Power of Community Service Coordinator? No April 21, 2025 9:21am Summary Purpose [...] section and content) DATE CREATED AUTHOR 04/29/2025 [facility] FOR RECORDS PERTAINING TO PATIENTS [...] BE BASED ON THE PRIMARY CLINICAL RECORDS. [facility] [employer] [facility]. provides no warranty or guarantee of the accuracy or completeness of information in this document.
--- NOTE | 2025-05-12 22:51 | ED.RN ---
Insulin bolus held due to pt BS 586. Dr. Phillip made aware, no new orders at this time.
[2025-05-12 23:14] LABS: Alcohol, Blood (Medical)-Serum < 10.1 mg/dL (<=10.0)
[2025-05-12] MEDS: Pantoprazole Sodium 40 MG in 0.9% Normal Saline (100mL MB+) 100 ML 330 MG IV (23:22)
[2025-05-12] MEDS: Insulin Lispro 100 UNIT in 0.9% Normal Saline (100mL Bag) 99 ML 6 UNIT CONT INF (23:30)
[2025-05-12 23:32] LABS: Vitamin B12 693 pg/mL (180-914)
[2025-05-12 23:40] LABS: BETA-HYDROXYBUTYRATE 5.2 mmol/L (0.0-0.3); Cholesterol 171 mg/dL (<=200); Low Density Lipoprotein Calc. 96 mg/dL; Magnesium 2.7 mg/dL (1.5-2.2); Triglycerides 91 mg/dL; Very Low Density Lipoprotein 18 mg/dL (5-40); cholesterol:hdl ratio screen 3.02
[2025-05-13] VITALS (19 sets, daily range): BP systolic 105–161; BP diastolic 69–101; PULSE 47–68; RESP 12–18; TEMP 35.7–36.6; O2SAT 97–100; BMI 22.7
[2025-05-13 00:57] LABS: Magnesium 3.0 mg/dL (1.5-2.2)
[2025-05-13 01:01] LABS: Anion Gap 15 (5-15); Carbon Dioxide 22.3 mmol/L (21.0-32.0); Chloride 106 mmol/L (98-108); Potassium 4.5 mmol/L (3.3-5.1)
[2025-05-13 01:44] LABS: FOLATES,SERUM (FOLIC ACID) 16.20 ng/mL (4.60-34.80)
[2025-05-13 02:16] LABS: Barbiturate Urine NEGATIVE (< 200 ng/mL); Benzodiazepine Urine NEGATIVE (< 200 ng/mL); PCP Urine NEGATIVE (< 25 ng/mL); THC Urine NEGATIVE (< 50 ng/mL)
--- NOTE | 2025-05-13 03:15 | NURSING ---
Upon arrival to ICU, patient's insulin drip was running at 3.7 units/hr. After further investigation, the order that was placed into the MAR was the weight based insulin drip protocol. Pharmacy was contacted and sent a new bag of insulin. We started the drip at 6 units/hr based on the current blood sugar and the new nomogram. Will continue to follow the new protocol for DKA.
--- NOTE | 2025-05-13 03:51 | NURSING ---
This RN contacted pharmacy to have a bag of D5 0.45 NS sent up. Tube system is down. RN awaiting medication.
[2025-05-13] MEDS: Dext 5%-0.45% NS 1,000 ML 150 ML IV ×2 (04:11→11:36)
[2025-05-13 05:46] LABS: Free T3 1.2 pg/mL (2.18-3.98)
[2025-05-13 06:24] LABS: Anion Gap 10 (5-15); Carbon Dioxide 23.8 mmol/L (21.0-32.0); Chloride 112 mmol/L (98-108); Potassium 4.0 mmol/L (3.3-5.1)
[2025-05-13] MEDS: Potassium Phosphate 30 MM in 0.9% Normal Saline (250mL Bag) 250 ML 55 MM IV (06:49)
[2025-05-13 07:42] LABS: BETA-HYDROXYBUTYRATE 0.7 mmol/L (0.0-0.3)
[2025-05-13 07:44] LABS: SITE Not entered; VBG BASE EXCESS 6 mmol/L (-1.0-3.5); VBG PO2 73 mmHg (25-40); VBG SO2 95 % (50-70); VBG TCO2 31 mmol/L (23-33)
[2025-05-13 08:41] LABS: Anion Gap 10 (5-15); Carbon Dioxide 25.7 mmol/L (21.0-32.0); Chloride 111 mmol/L (98-108); Magnesium 2.8 mg/dL (1.5-2.2); Potassium 4.0 mmol/L (3.3-5.1)
[2025-05-13 09:24] LABS: BUN 27 mg/dL (4-19); BUN/Creat Ratio 21.7 RATIO (10-20); Calcium,Total 8.9 mg/dL (7.6-11.0); Estimated Creatinine Clearance 59.39 ml/min (50-250); Glucose 209 mg/dL (70-99)
[2025-05-13] MEDS: Pantoprazole Sodium 40 MG in 0.9% Normal Saline (100mL MB+) 100 ML 330 MG IV (09:31)
[2025-05-13] MEDS: Insulin Glargine-YFGN 100 UNIT/ML Pen 20 UNIT SC ×2 (13:02→21:46)
[2025-05-13] MEDS: 0.9% Saline Lock 10 ML Syringe IV (13:18)
--- NOTE | 2025-05-13 14:00 | PN_ITS ---
Subjective Subjective Patient seen and examined. I communicated with patient via the use of the [employer] asl interpreter via the [employer] asl interpreter service. He had no active complaints. He denied any headache, blurred vision, fever or chills or any other symptoms. Review of systems otherwise negative. He has been managed for DKA due to noncompliance with diabetes medications. Objective Data Objective Data Vital Signs: Vital Signs Temp Pulse Resp BP Pulse Ox O2 Del Method 96.6 F L 63 14 152/98 H 99 Room Air 05/13/25 11:00 05/13/25 11:00 05/13/25 11:00 05/13/25 11:00 05/13/25 11:00 05/13/25 11:00 Oxygen Delivery Method Room Air Weight: 153 lb 12.8 oz Body Mass Index (BMI) 22.7 Intake & Output: Intake and Output for Last 24 Hours 05/11/25 05/12/25 05/13/25 23:59 23:59 23:59 Intake Total 2250 / 2250 1875.30 / 1875.30 Output Total 800 / 800 Balance 2250 / 2250 1075.30 / 1075.30 Lab / Micro Data 05/12/25 19:15 05/13/25 08:08 Labs: Laboratory Results - last 24 hr 05/12/25 18:59: POC Glucose > 500 H* 05/12/25 19:15: WBC 8.0, RBC 4.60, Hgb 13.2, Hct 38.8 L, MCV 84.3, MCH 28.7, MCHC 34.0, RDW Std Deviation 35.7, RDW Coeff of Sarina 11.8, Plt Count 223, MPV 10.9, Immature Gran % (Auto) 0.300, Neut % (Auto) 91.1 H, Lymph % (Auto) 7.2 L, Loíza % (Auto) 1.3, Eos % (Auto) 0.0, Baso % (Auto) 0.1, Absolute Neuts (auto) 7.3, Absolute Lymphs (auto) 0.57 L, Nucleated RBC % 0, Sodium 130 L, Potassium 6.2 H*, Chloride 90 L, Carbon Dioxide 15.6 L, Anion Gap 24 H, BUN 38 H, C reatinine 1.63 H, Estim Creat Clear Calc 45.78 L, Est GFR (MDRD) Non-Af 47 L, B UN/Creatinine Ratio 23.0 H, Glucose 896 H*, Hemoglobin A1c 13.4 H, Serum Osmolality 350 H, Calcium 9.1, Phosphorus 5.6 H, Magnesium 2.8 H, Total Bilirubin 0.99, AST 13, ALT 20, Alkaline Phosphatase 94, Troponin T High Sens 11, Total Protein 7.8, Albumin 4.4, Globulin 3.4, Albumin/Globulin Ratio 1.3, b- Hydroxybutyric mmol/L 5.8 H 05/12/25 19:44: Urine Color Straw, Urine Clarity Clear, Urine pH 6.0, Ur Specific [place] 1.010, Urine Protein Negative, Urine Glucose (UA) 1000 H, Urine Ketones 50 H, Urine Occult Blood Negative, Urine Nitrite Negative, Urine Bilirubin Negative, Urine Urobilinogen Normal, Ur Leukocyte Esterase Negative, Urine RBC 0 SEEN, Urine WBC 0 SEEN, Ur Squamous Epith Cells 0 SEEN, Urine Bacteria 0 SEEN, Urine Mucus 0 SEEN 05/12/25 20:45: Sodium Cancelled, Potassium Cancelled, Chloride Cancelled, Carbon Dioxide Cancelled, Anion Gap Cancelled 05/12/25 21:06: POC Glucose > 500 H* 05/12/25 22:15: POC Glucose 469 H* 05/12/25 22:33: Magnesium 2.7 H, Triglycerides 91, Cholesterol 171, LDL Cholesterol, Calc 96, VLDL Cholesterol 18, HDL Cholesterol 57, Cholesterol/HDL Ratio 3.02, Vitamin B12 693, Serum Folate 16.20, b-Hydroxybutyric mmol/L 5.2 H, TSH 0.142 L, Ethyl Alcohol < 10.1 05/12/25 23:04: POC Glucose 414 H 05/13/25 00:01: POC Glucose 395 H 05/13/25 00:25: Sodium 143, Potassium 4.5, Chloride 106, Carbon Dioxide 22.3, Anion Gap 15, Magnesium 3.0 H 05/13/25 00:32: POC Glucose 355 H 05/13/25 01:32: POC Glucose 311 H 05/13/25 01:40: Urine Opiates Screen NEGATIVE, U Buprenorphine Qual NEGATIVE, Ur Oxycodone Screen NEGATIVE, Urine Methadone Screen NEGATIVE, Urine Fentanyl Screen NEGATIVE, Ur Barbiturates Screen NEGATIVE, Ur Phencyclidine Scrn NEGATIVE, Ur Amphetamines Screen NEGATIVE, U Benzodiazepines Scrn NEGATIVE, Urine Cocaine Screen NEGATIVE, U Cannabinoids Screen NEGATIVE 05/13/25 02:35: POC Glucose 259 H 05/13/25 03:34: POC Glucose 235 H 05/13/25 04:39: POC Glucose 221 H 05/13/25 04:40: Sodium 146 H, Potassium 4.0, Chloride 112 H, Carbon Dioxide 23.8, Anion Gap 10, Phosphorus 1.9 L, b-Hydroxybutyric mmol/L 0.7 H, Free T4 0.90, Free T3 pg/dL 1.2 L 05/13/25 05:31: POC Glucose 239 H 05/13/25 06:30: POC Glucose 222 H 05/13/25 08:08: Sodium 146 H 05/13/25 08:08: Sodium Cancelled, Potassium 4.0 05/13/25 08:08: Potassium Cancelled, Chloride 111 H 05/13/25 08:08: Chloride Cancelled, Carbon Dioxide 25.7 05/13/25 08:08: Carbon Dioxide Cancelled, Anion Gap 10 05/13/25 08:08: Anion Gap Cancelled, BUN 27 H 05/13/25 08:08: BUN Cancelled, Creatinine 1.24 H 05/13/25 08:08: Creatinine Cancelled, Estim Creat Clear Calc 59.39 05/13/25 08:08: Estim Creat Clear Calc Cancelled, Est GFR (MDRD) Non-Af 65 05/13/25 08:08: Est GFR (MDRD) Non-Af Cancelled, BUN/Creatinine Ratio 21.7 H 05/13/25 08:08: BUN/Creatinine Ratio Cancelled, Glucose 209 H 05/13/25 08:08: Glucose Cancelled, Calcium 8.9 05/13/25 08:08: Calcium Cancelled, Phosphorus 2.8 05/13/25 08:08: Phosphorus Cancelled, Magnesium 2.8 H 05/13/25 08:12: POC Glucose 193 H 05/13/25 08:54: POC Glucose 162 H 05/13/25 09:29: POC Glucose 174 H 05/13/25 10:45: POC Glucose 137 H 05/13/25 13:01: POC Glucose 82 ABG Data ABG results: ABG 05/12/25 05/13/25 19:35 07:41 Specimen Type AMY AMY Sample Site Not entered Not entered VBG pH 7.32 7.46 H VBG pO2 66 H 73 H VBG HCO3 17 L 30 H VBG Total CO2 18 L 31 VBG O2 Sat (Calc) 91 H 95 H VBG Base Excess -9 L 6 H POC Mix VBG pCO2 Pt Tmp 33.3 L 42.0 O2 Delivery Device Room Air Not entered Radiography Diagnostic Testing: Radiology Impression Chest X-Ray 05/12/25 19:41 IMPRESSION: No acute pulmonary process, no interval change Reading Location: [facility] Physical Exam Const alert and no apparent distress General Appearance: cooperative HEENT normocephalic, head/scalp atraumatic, moist oral mucous membranes and oropharynx normal Eyes PERRL and EOMs intact bilaterally Neck no lymphadenopathy and supple Lymph Lymphatic: no lymphadenopathy noted Resp normal respiratory effort, normal air movement and clear to auscultation bilaterally Cardio regular rate, regular rhythm, S1 normal heart sound, S2 normal heart sound and no murmurs GI normal to inspection, nondistended, normoactive bowel sounds, soft to palpation and non-tender Extremity normal capillary refill, no clubbing, cyanosis or edema and no calf tenderness General Extremity: no tenderness to palpation of joints or extremities Skin General Skin Exam: no breakdown Neuro CN's II-XII intact bilaterally, no focal motor deficits, no sensory deficits noted and deep tendon reflexes 2+ bilaterally Motor Exam: general weakness Psych thought process normal, cooperative and affect normal Appearance: appropriate Assessment & Plan Assessment/Plan (1) DM type 2 causing complication: (2) DKA (diabetic ketoacidoses): QUALIFIERS: Diabetes mellitus type: type 2 Diabetes mellitus complication detail: without coma Qualified Code(s): E11.10 - Type 2 diabetes mellitus with ketoacidosis without coma (3) MAGALIS (acute kidney injury): PLAN: Plan #Acute DKA due to noncompliance * Patient admitted with a complaint of elevated blood sugar. His blood sugar was 896 and beta hydroxybutyrate was also elevated. He was treated as per DKA protocol. * Anion gap is closed x 2. Patient restarted on his Lantus 20 units twice daily. A1c is 13.6. * Insulin sliding scale. Accu-Cheks ACHS. * #MAGALIS: Creatinine was 1.63 on admission but has trended downwards. He also had hyperkalemia with potassium of 6.2 but this is also resolved. Will monitor. Creatinine is down to 1.24. #Abnormal thyroid function tests: * TSH is low at 0.142. T4 is normal but free T3 is also low at 1.2. * This may be abnormal in light of the acute DKA. * Will be beneficial he follows up with his PCP on outpatient basis for repeat thyroid function test to see if they are still going to commence treatment and if needed. * #Hypertension: Poorly controlled likely due to noncompliance. IV hydralazine as needed. Resume oral BP meds-amlodipine and losartan #Hyperlipidemia: On statin #History of spasms: On Flexeril DVT prophylaxis: Lovenox Disposition: transfer out of ICU to med surg. Charges/Coding Visit Charges Inpatient E&M: 24177 Subs Hosp L2
--- NOTE | 2025-05-13 16:50 | CASEMGMT ---
RN?CM?AIRCRAFT MACHINIST?CM?to room to meet with patient for initial transition planning/care coordination?assessment.?RN?CM?introduced self and role at [facility].? Pt resting in bed in no distress at this time.? Pt is A/O at this time. Pt speaks Romanian Creole. He called his son, Sukh, and placed him on speaker phone to talk with this YAMILE MARSH. The following information obtained from Sukh. Care providers, pharmacy, and demographics verified/updated at this time. PCP: Pt goes to [facility]. Specialists: none Preferred Pharmacy: [facility] Insurance: [employer]. Prescription Benefit:?None. Per pharmacist @ [facility], the card on file is a bright discount card, not Rx benefits. LNOK: SonSukh Living Arrangements: Lives w/son in 2-story home w/3 steps to enter. Independent. Transportation:?Son DME: Son states pt has a functioning glucometer w/sufficient supplies. Per Jose pharmacist @ [facility], there are refills remaining @ [facility], if further supplies are needed. Son made aware. HHC/SNF: No hx. CCN: Discussed CCN with son. He is interested in referral. Order placed. Medications: Pt ran out of diabetic medication about 3 weeks ago. Son states that the medication that was prescribed is ~$1,000 and they cannot afford this. YAMILE MARSH placed a call to [facility] and spoke w/pharmacistJose. Jose states pt's provider has sent Rx for Trulicity to [facility] and that cost is ~$1,000 and they have placed this medication on hold. Jose also states pt does have 2 more refills remaining on Lantus Solostar pens @ [facility] and cost is $35 per pen. Cost of insulin pen needles is $10.29 OTC. Son made aware of Lantus pen refills remaining @ [facility] and cost of $35/pen. He was not aware of this and states this is affordable and he can pick this up @ [facility] when pt is discharged, if pt discharges on same insulin. Dr Skaggs made aware as well. Son states they have enough pen needles at this time, but was made aware of cost @ [facility] for another box and that he can purchase this when needed. He voices appreciation. Son wishes for pt to return home and states has no further concerns with pt going home at time of discharge. PLAN:??Home w/CCN. DGiauque BSN?RN?CM
[2025-05-14 03:58] VITALS: BP 135/93; PULSE 64; RESP 16; TEMP 36.6; O2SAT 97
[2025-05-14 04:57] LABS: Hematocrit 41.0 % (40-54); Hemoglobin 13.7 g/dL (13.0-16.5); Immature Granulocytes Count 0.030 X10^3/uL (0.0-0.0); Mean Corp Hgb Conc 33.4 g/dL (32-36); Mean Corpuscular Volume 84.9 fL (80-94); Mean Platelet Vol. 10.9 fl (6.2-12.0); NRBC Flagged by Analyzer 0 % (0-5); Platelet Count 207 K/mm3 (150-450); RBC Distribution Width CV 11.6 % (11.6-14.6); RBC Distribution Width SD 35.5 fl (35.1-43.9); Red Blood Count 4.83 M/mm3 (4.6-6.2); White Blood Count 11.5 K/mm3 (4.4-11.0)
[2025-05-14 05:35] LABS: Anion Gap 10 (5-15); BUN 22 mg/dL (4-19); BUN/Creat Ratio 20.9 RATIO (10-20); Calcium,Total 8.8 mg/dL (7.6-11.0); Carbon Dioxide 23.5 mmol/L (21.0-32.0); Chloride 107 mmol/L (98-108); Estimated Creatinine Clearance 70.13 ml/min (50-250); Glucose 250 mg/dL (70-99); Potassium 3.9 mmol/L (3.3-5.1)
[2025-05-14 05:45] VITALS: BMI 22.8
[2025-05-14 10:00] VITALS: BP 141/85; PULSE 68; RESP 17; TEMP 36.3; O2SAT 93
[2025-05-14] MEDS: Insulin Glargine-YFGN 100 UNIT/ML Pen 20 UNIT SC ×2 (10:11→17:25)
--- NOTE | 2025-05-14 11:38 | DCINST_ITS ---
Discharge Instructions DC O2, CPAP, BIPAP needs Home O2 Discharge instructions: No Dressing / Incision Discharge Activity: Return to Normal Activity Weight Bearing Status: Weight bearing as tolerated Dressing / Incision Call your doctor if you observe: Fever of 101 or Higher, Shortness of breath, Dizziness, Swelling in the ankles and Chest pain Follow Up Care Test Results: Test results from this visit will be discussed in further detail at your follow- up appointment, if applicable. 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 HE also has a script for his insulin pens there ready for pickup Discharge Orders/Prescriptions Prescriptions: Continued amlodipine 10 mg Tablet 10 mg PO DAILY 90 Days Qty: 90 3RF losartan 25 mg tablet 25 mg PO DAILY Qty: 90 3RF atorvastatin 40 mg tablet 40 mg PO QHS Qty: 90 3RF metformin 500 mg tablet 500 mg PO BID Qty: 180 3RF glimepiride 2 mg tablet 2 mg PO DAILY Qty: 90 3RF insulin glargine [Lantus Solostar U-100 Insulin] 100 unit/mL (3 mL) insulin pen 20 unit subcut BID Qty: 30 0RF Patient Comments: pt states he only uses insulin if his BS is over 300 (DME) pen needle, diabetic 31 gauge x 5/32 needle See Rx Instructions .ROUTE .MEDSUPPLY Qty: 100 0RF Rx Instructions: As directed cyclobenzaprine 5 mg tablet 5 mg PO TID PRN (Reason: muscle spasm) 3 Days Qty: 9 0RF Referrals / Follow Up: Miquel Alexander MD [Med Staff - Courtesy Staff] - Within 2 Weeks (see to establish care for poorly controlled diabetes mellitus.) Care Physician,No Primary [Non-Staff] - [facility],Romy Taylor [Primary Care Provider] - Within 1 Week Disposition Disposition (needs filled in before D/C Order can be placed): Home, Self Care
--- NOTE | 2025-05-14 15:33 | NURSING ---
This RN took blood sugar before pt leaving. BS 393. This RN texted Dr. Skaggs to notify. Dr. Skaggs wants to recheck Blood sugar in one hour.
[2025-05-14 17:08] VITALS: BP 135/89; PULSE 83; RESP 19; TEMP 36.6; O2SAT 99
--- NOTE | 2025-05-15 11:32 | CCN.REFER ---
PATIENT UNFORTUNATELY DOES NOT QUALIFY FOR [facility]. [facility] DO NOT HAVE A MASTER ELECTRICIAN TO USE IN THE HOMES. T/C TO PATIENT TO SEE IF ANYONE IN THE HOME SPEAKS ROMANIAN. NO ANSWER AND NO RETURNED CALL.
== END 2025-05-14 17:44 | disposition home or self-care (01) | DRG 638 ==
LOC: ED 19:41 → ICU 21:39 → MS3 05-14 05:20
PROVIDERS: Admitting Provider Internal Medicine; Emergency Provider Surgery; Visit Provider Student in an Organized Health Care Education/Training Program
DX: E11.10 Type 2 diabetes mellitus with ketoacidosis without coma (principal); N17.9 Acute kidney failure, unspecified; E83.41 Hypermagnesemia; I10 Essential (primary) hypertension; Z79.4 Long term (current) use of insulin; E87.5 Hyperkalemia; E87.6 Hypokalemia; E78.5 Hyperlipidemia, unspecified; M62.838 Other muscle spasm; E86.0 Dehydration; Z79.84 Long term (current) use of oral hypoglycemic drugs; Z79.899 Other long term (current) drug therapy; Z91.148 Patient's other noncompliance with medication regimen for other reason
CPT/HCPCS: 36415; 71045; 80048; 80051; 80053; 80061; 80307; 81001; 82010; 82077; 82607; 82746; 82803; 82962; 83036; 83735; 83930; 84100; 84439; 84443; 84481; 84484; 85025; 93005; 97802; 99285; A4216